=== PATIENT | female | born 1945 | race Caucasian/White ===

== ENCOUNTER → 2019-08-11 13:19 | Outpatient (BNVA) | payer MEDICARE, SELFPAY | PROVIDERS: Family Provider Nurse Practitioner Family; Referring Provider Nurse Practitioner Family; Visit Provider Specialist | DX: M25.561 Pain in right knee (principal) | CPT/HCPCS: 73560; 73565; 73630 ==

== ENCOUNTER 2019-12-16 08:40 | Outpatient (CLI) | payer MEDICARE, SELFPAY ==
--- NOTE | 2019-12-16 08:56 | XR_ITS ---
WS: [id number] Lumbar spine, 3 views, 12/16/2019 Clinical Data: Pain Comparison: None. Findings: No compression fractures or subluxation is seen. Degenerative disc narrowing is present at all levels from L1-L2 through L5-S1. There is a dextroscoliosis. Moderate osteoarthritic change is seen of the vertebral bodies L2-L5. The transverse processes and SI joints are normal. Is calcification in the wall of the abdominal aorta but no aneurysm is seen. XR/XR lumbar spine 2-3V* [id number] Impression: 1. Moderate degenerative change of the vertebral bodies L2-L5 with a dextroscol iosis. 2. Multiple levels of degenerative disc narrowing from L1-L2 through L5-S1.
== END 2019-12-16 08:41 | disposition home or self-care (01) ==
LOC: RAD 08:47
PROVIDERS: Visit Provider Nurse Practitioner
DX: M54.5 Low back pain (principal); M41.86 Other forms of scoliosis, lumbar region
CPT/HCPCS: 72100

== ENCOUNTER → 2020-01-12 11:22 | Outpatient (BNVA) | payer MEDICARE, SELFPAY | PROVIDERS: Family Provider Nurse Practitioner Family; Visit Provider Family Medicine | DX: I10 Essential (primary) hypertension (principal); E78.00 Pure hypercholesterolemia, unspecified | CPT/HCPCS: 80053; 80061; 85025 ==

== ENCOUNTER 2020-06-19 10:13 | Outpatient (CLI) | payer MEDICARE, SELFPAY ==
--- NOTE | 2020-06-19 10:30 | MM_ITS ---
WS: [id number] BILATERAL SCREENING DIGITAL MAMMOGRAM WITH CAD HISTORY: screening COMPARISON: 05/20/2017 and 05/16/2015 Bilateral CC and MLO views submitted. Computer aided detection analyzed. Breast composition: There are scattered areas of fibroglandular density. No suspicious masses, microc alcifications or architectural distortion. Benign round calcifications and arterial calcifications in each breast. MM/[place] [id number] IMPRESSION: BI-RADS: 2-Benign FOLLOW UP: 1 Year Follow-up
== END 2020-06-19 10:14 | disposition home or self-care (01) ==
LOC: RADSHAW 10:15
PROVIDERS: PCP Family Medicine; Visit Provider Family Medicine
DX: Z12.31 Encounter for screening mammogram for malignant neoplasm of breast (principal)
CPT/HCPCS: 77067

== ENCOUNTER → 2021-01-08 09:40 | Outpatient (BNVA) | payer MEDICARE, SELFPAY | PROVIDERS: PCP Family Medicine; Visit Provider Family Medicine | DX: I10 Essential (primary) hypertension (principal); E78.00 Pure hypercholesterolemia, unspecified | CPT/HCPCS: 80053; 80061; 85025 ==

== ENCOUNTER → 2021-07-02 09:48 | Outpatient (BNVA) | payer MEDICARE, SELFPAY | PROVIDERS: PCP Family Medicine; Visit Provider Family Medicine | DX: L57.0 Actinic keratosis (principal) | CPT/HCPCS: 88304; 88342 ==

== ENCOUNTER 2021-08-23 13:14 | Emergency (ER) | payer MEDICARE, SELFPAY ==
[2021-08-23 13:20] VITALS: BP 121/72; PULSE 61; RESP 16; TEMP 36.6; O2SAT 95; BMI 30.2
--- NOTE | 2021-08-23 13:35 | W.ED.FALL ---
HPI - Fall General: Chief Complaint: Fall Stated Complaint: fall Time Seen by Provider: 08/23/21 13:34 History of Present Illness: 76-year-old female comes in today for evaluation after a fall. At about 1130 today patient was coming out of the activity center and slipped in a puddle of water causing her to land on her buttocks. Since then patient has had abdominal discomfort and pelvic discomfort. Patient denies any loss of bowel or bladder control. Patient reports landing on her buttock and across her abdomen. Patient has a history of back pain, arthritis, hypertension, high cholesterol, and allergic rhinitis. Patient takes medications routinely for hypertension and high cholesterol. Patient also reports taking supplements. MD complaint: fall Onset (ago): hour(s) Fall from: standing Place fall occurred: street Loss of consciousness: None Prolonged down time: no Symptoms prior to fall: none Context: tripped/slipped Location of injury: back Associated symptoms-after fall: Denies chest pain Review of Systems General: Reports: 10 or more systems reviewed and unremarkable except in HPI and below Card: Denies: chest pain Resp: Denies: dyspnea GI: Denies: fecal incontinence : Denies: urinary incontinence Musc: Reports: back pain PFSH ED PFSH: Medical History Allergic rhinitis due to allergen History of depression Hypercholesteremia Hypertension Surgical History Status post total knee replacement, left Social History Smoking and tobacco status: former smoker Alcohol intake: never Physical Exam Const: COMMON NORMALS: alert HENMT: COMMON NORMALS: normocephalic HEAD & SCALP: normocephalic Neck/C-Spine: COMMON NORMALS: full ROM Resp: COMMON NORMALS: normal respiratory effort and clear to auscultation bilaterally AUSCULTATION: clear to auscultation bilaterally Cardio: COMMON NORMALS: regular rate, regular rhythm, S1 normal heart sound present and S2 normal heart sound present RATE: regular rate RHYTHM: regular rhythm HEART SOUNDS: S1 normal heart sound present and S2 normal heart sound present Back/Pelvis: LUMBAR SPINE/LOWER BACK: No lumbar spinal tenderness Extremity: COMMON NORMALS: normal to inspection Neuro: SENSORIUM/ORIENTATION: Yes alert Skin: COMMON NORMALS: no rashes or lesions noted GENERAL SKIN EXAM: no rashes or lesions noted Course Vital Signs: Vital signs: Vital Signs Temperature 97.9 F 08/23/21 13:20 Pulse Rate 61 08/23/21 13:20 Respiratory Rate 16 08/23/21 13:20 Blood Pressure 121/72 08/23/21 13:20 Pulse Oximetry 95 08/23/21 13:20 MDM - Fall Medical Decision Making 76-year-old female comes in today for evaluation after a slip and fall. On exam patient has some mild tenderness in the low back but no step-off or significant pain on palpation of the spine. Patient is able to stand and ambulate with minimal to no difficulty. Patient reports slipping and landing on her buttocks. No head injury was noted. Differential diagnosis includes vertebral spinal fracture, pelvic fracture, contusion, facet arthropathy, intervertebral disc disease. X-ray of the spine and pelvis indicated no acute fractures. Suspect patient's pain is more due to her intervertebral disc disease and compression on nerves. Reviewed recommendations for monitoring for fever and loss of bowel or bladder control. Patient reported no of these concerns at this time. Lab Data Radiology Impressions Lumbar Spine X-Ray 08/23/21 13:41 IMPRESSION: 1. Moderately advanced degenerative changes and dextroscoliosis. 2. No acute fracture or malalignment. Discharge Plan Discharge Patient Disposition: Home Clinical Impression: Fall from standing Qualifiers: Encounter type: initial encounter Qualified Code(s): W19.XXXA - Unspecified fall, initial encounter Abdominal pain Qualifiers: Abdominal location: generalized Qualified Code(s): R10.84 - Generalized abdominal pain Condition: Stable Prescriptions: No Action omega-3 fatty acids [Fish Oil Concentrate] 1,000 mg capsule 1,000 mg PO DAILY 0RF ascorbate calcium (vitamin C) 500 mg tablet 500 mg PO DAILY 0RF pravastatin 40 mg tablet 40 mg PO DAILY Qty: 90 1RF lidocaine (PF) 20 mg/mL (2 %) solution 20 mg SUBCUT ONCE Qty: 1 0RF cholecalciferol (vitamin D3) 10 mcg (400 unit) capsule 10 mcg PO DAILY 0RF cetirizine [Zyrtec] 10 mg tablet 10 mg PO DAILY PRN (Reason: allergy symptoms) Qty: 30 1RF losartan 50 mg tablet 50 mg PO DAILY Qty: 90 3RF lidocaine HCl 10 mg/mL (1 %) solution 10 mg SUBCUT ONCE Qty: 1 0RF cyclobenzaprine 10 mg tablet 10 mg PO BID PRN (Reason: muscle spasm) 20 Days Qty: 40 2RF metoprolol succinate 100 mg tablet extended release 24 hr 100 mg PO DAILY 90 Days Qty: 90 3RF omeprazole 20 mg capsule,delayed release(DR/EC) 20 mg PO DAILY Qty: 90 1RF Discharge Orders: Discharge ED (Routine); Ordered 08/23/21 Ordered By: Devonte Nava Referrals: Dewayne Jackson MD [Primary Care Provider] - Discharge Diet: Usual diet Discharge Activity: Increase activity as tolerated Patient Instructions: Abdominal Pain (ED) Activity Restrictions/Additional Instructions: Activity as tolerated. Gentle stretching and range of motion exercises. Use acetaminophen or ibuprofen for pain. Follow-up with primary care for further instruction. Return to ER for new concerns. Coding Level of Care Code ED Offset Proof Press Operator for John Fwd Exam Comprehensive
--- NOTE | 2021-08-23 13:41 | XR_ITS ---
WS: [id number] Exam: XR pelvis 1-2V* [id number] Date/Time of Exam: 08/23/2021 1:50 PM Reason For Exam: fall No acute pelvic fracture. Bony sclerosis of the right pubis that may represent Paget's disease of bon e. Osteoblastic metastasis also possible but felt to be less likely. Moderate DJD of the SI joints an d visualized lower lumbar spine. The hips are intact. XR/XR pelvis 1-2V* [id number] IMPRESSION: 1. Bony sclerosis of the right pubis which may indicate Paget's disease of bone . Osteoblastic metastatic bone disease possible but felt to be less likely. 2. No fracture. Moderate SI joint DJD.
--- NOTE | 2021-08-23 13:41 | XR_ITS ---
WS: [id number] Exam: XR lumbar spine 2-3V* [id number] Date/Time of Exam: 08/23/2021 1:50 PM Reason For Exam: fall No acute fracture or dislocation. Degenerative vacuum disks from L1 to L5. The L5-S1 disc space is re latively well maintained. Marked facet arthropathy at all levels. Dextroscoliosis. Osteopenia. Spondy losis. Aortoiliac atherosclerosis. Tiny calcifications superimpose both kidneys and may represent tam al stones but are nonspecific. XR/XR lumbar spine 2-3V* [id number] IMPRESSION: 1. Moderately advanced degenerative changes and dextroscoliosis. 2. No acute fracture or malalignment.
[2021-08-23] MEDS: acetaminophen 500 mg Tablet 1000 MG PO (14:20)
== END 2021-08-23 14:41 | disposition home or self-care (01) ==
PROVIDERS: Emergency Provider Nurse Practitioner Family; PCP Family Medicine
DX: R10.84 Generalized abdominal pain (principal); M54.50 Low back pain, unspecified; W01.0XXA Fall on same level from slipping, tripping and stumbling without subsequent striking against object, initial encounter
CPT/HCPCS: 72100; 72170; 99283

== ENCOUNTER → 2021-10-21 10:36 | Outpatient (BNVA) | payer MEDICARE, SELFPAY | PROVIDERS: PCP Family Medicine; Visit Provider Family Medicine | DX: E78.00 Pure hypercholesterolemia, unspecified (principal); I10 Essential (primary) hypertension; N39.3 Stress incontinence (female) (male) | CPT/HCPCS: 80053; 80061; 85025 ==

== ENCOUNTER → 2022-01-15 10:33 | Outpatient (BNVA) | payer MEDICARE, SELFPAY | PROVIDERS: PCP Family Medicine; Visit Provider Family Medicine | DX: Z00.00 Encounter for general adult medical examination without abnormal findings (principal); D50.9 Iron deficiency anemia, unspecified; N39.46 Mixed incontinence; Z23 Encounter for immunization | CPT/HCPCS: 85025 ==

== ENCOUNTER 2022-05-21 14:02 | Outpatient (CLI) | payer MEDICARE, SELFPAY ==
--- NOTE | 2022-05-21 14:30 | XR_ITS ---
WS: [id number] SCREENING DEXA SCAN [employer] CLINICAL INFORMATION: screening f/u from prior study 2018 COMPARISON: 2018 FINDINGS: The L1-L4 bone mineral density measures 1.608 g/cm2. This corresponds to a T score score of 3.6 and Z score of 5.0. Left femoral neck bone mineral density measures 0.959 g/cm2. This corresponds to a T score of -0.4 an d Z score of 1.2. Right femoral neck bone mineral density measures 0.897 g/cm2. This corresponds to a T score -0.9of an d Z score of 0.7. Mean femoral neck bone mineral density measures 0.928 g/cm2. This corresponds to a T score of -0.6 an d Z score of 1.0. XR/XR DEXA axial skeleton* [id number] IMPRESSION: Normal bone mineralization lumbar spine. Normal bone mineralization femoral nec ks. Patient's FRAX calculated 10 year probability for major osteoporotic fracture i s 20.0 % and osteoporotic hip fracture is 4.8%. Bone mineral density in the lumbar spine increased 1.6% since 2018. Bone mineral density femoral necks increased 1.2% since 2018
== END 2022-05-21 14:03 | disposition home or self-care (01) ==
PROVIDERS: PCP Family Medicine; Visit Provider Family Medicine
DX: Z13.820 Encounter for screening for osteoporosis (principal); I10 Essential (primary) hypertension; E03.9 Hypothyroidism, unspecified
CPT/HCPCS: 77080; 80053; 84443; 85025

== ENCOUNTER 2022-06-21 10:21 | Emergency (ER) | payer MEDICARE, SELFPAY ==
[2022-06-21 10:32] VITALS: BP 214/78; PULSE 64; RESP 16; TEMP 36.8; O2SAT 98
[2022-06-21 11:19] VITALS: BP 228/81; PULSE 66; RESP 16; O2SAT 97
--- NOTE | 2022-06-21 11:31 | W.ED.BACK ---
HPI - Back Pain/Injury General: Chief Complaint: Back Pain/Injury Stated Complaint: back pain Time Seen by Provider: 06/21/22 10:41 PFSH ED PFSH: Medical History Allergic rhinitis due to allergen History of depression Hypercholesteremia Hypertension Surgical History Status post total knee replacement, left Course Vital Signs: Vital signs: Vital Signs Temperature 98.2 F 06/21/22 10:32 Pulse Rate 66 06/21/22 11:19 Respiratory Rate 16 06/21/22 11:19 Blood Pressure 228/81 06/21/22 11:19 Pulse Oximetry 97 06/21/22 11:19 Oxygen Delivery Me thod 06/21/22 11:19 Discharge Plan Discharge Condition: Stable Prescriptions: No Action omega-3 fatty acids [Fish Oil Concentrate] 1,000 mg capsule 1,000 mg PO DAILY ascorbate calcium (vitamin C) 500 mg tablet 500 mg PO DAILY lidocaine (PF) 20 mg/mL (2 %) solution 20 mg SUBCUT ONCE Qty: 1 0RF cholecalciferol (vitamin D3) 10 mcg (400 unit) capsule 10 mcg PO DAILY cetirizine [Zyrtec] 10 mg tablet 10 mg PO DAILY PRN (Reason: allergy symptoms) Qty: 30 1RF lidocaine HCl 10 mg/mL (1 %) solution 10 mg SUBCUT ONCE Qty: 1 0RF conjugated estrogens 0.625 mg/gram cream 0.625 mg vaginal DAILY Qty: 30 2RF losartan 50 mg tablet 50 mg PO DAILY Qty: 90 3RF pravastatin 40 mg tablet 40 mg PO DAILY Qty: 90 1RF trospium 60 mg capsule,extended release 24hr 60 mg PO DAILY Qty: 42 0RF Rx Instructions: must be taken on empty stomach at least 1 hour before a meal/food with water only mirabegron 25 mg tablet extended release 24 hr 25 mg PO DAILY Qty: 42 0RF ferrous sulfate 325 mg (65 mg iron) tablet 325 mg PO DAILY Qty: 90 3RF metoprolol tartrate 50 mg tablet See Rx Instructions .ROUTE .COMPLEX Qty: 180 1RF Dose Instruction: TAKE 1 TABLET BY MOUTH TWICE DAILY NEEDED FOR BLOOD PRESSURE *SMALLER, SHORTER LASTING SO TAKE TWICE DAILY INSTEAD OF ONCE* Rx Instructions: TAKE 1 TABLET BY MOUTH TWICE DAILY NEEDED FOR BLOOD PRESSURE *SMALLER, SHORTER LASTING SO TAKE TWICE DAILY INSTEAD OF ONCE* omeprazole 20 mg capsule,delayed release(DR/EC) See Rx Instructions .ROUTE .COMPLEX Qty: 90 1RF Dose Instruction: take 1 capsule BY MOUTH EVERY DAY Rx Instructions: take 1 capsule BY MOUTH EVERY DAY cyclobenzaprine 10 mg tablet 10 mg PO BID PRN (Reason: muscle spasm) 20 Days Qty: 40 2RF sulindac 200 mg tablet 200 mg PO BID Qty: 60 1RF Referrals: Dewayne Jackson MD [Primary Care Provider] - Coding Level of Care Code ED 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
--- NOTE | 2022-06-21 11:48 | W.ED.BACK ---
HPI - Back Pain/Injury General: Chief Complaint: Back Pain/Injury Stated Complaint: back pain Time Seen by Provider: 06/21/22 10:41 Source: patient Mode of arrival: ambulatory (with use of cane-chronically uses this) Limitations: no limitations History of Present Illness: Patient is a 77-year-old female who presents to ED today with a complaint of lower back pain. She states she has been having back pain for quite a while . When asked to further elaborate on specific timeline she tells me at least a year or so . Patient states she has been seeing her primary care provider Dr. Jackson and states she has been told she has arthritis . She states she has been on anti-inflammatory medication that she does not feel helped her pain much. She does report today taking [id number] arthritis medication that did seem to help and at the time of my examination states she is not having much pain. Patient also has a complaint of feeling wobbly when she stands up. She states she will need to get my feet underneath me before starting to ambulate and states her legs sometimes give out. She reports previous falls over the past several months from this but states has not had a fall in over a month. Thinks maybe legs give out secondary to bad knees . She tells me this issue again has been going on for quite some time. Patient overall seems to be a fairly poor historian. When asked specifically what about her chronic complaints seemed to prompt her emergency visit she responds they ain't getting no better . MD elicited complaint: back pain Onset (ago): year(s) Timing: constant Similar Symptoms Previously: Yes Location: lumbar spine Radiation: none Exacerbating factors: none Relieving factors: none Associated symptoms: Deny abdominal pain, chills, dysuria, fatigue, fever(s), syncope or urinary urgency Treatments prior to arrival: NSAIDS Work related injury: No Review of Systems Const: Denies: fever(s), chills, body aches, fatigue or malaise Eyes: Denies: change in vision, blurry vision, photophobia, floaters or seeing flashes Card: Denies: chest pain, palpitations, irregular heart rhythm, edema, swelling of feet/ankles, syncope, pre-syncope, dyspnea on exertion or orthopnea Resp: Denies: dyspnea GI: Denies: abdominal pain : Denies: flank pain, difficulty voiding, dysuria or urinary urgency Musc: Reports: back pain; Denies: neck pain, extremity pain, extremity swelling, joint pain or joint swelling Skin/Breast: Denies: rash Neuro: Denies: headache(s), numbness in extremities, weakness in extremities, sensory changes, lack of coordination or frequent falls PFSH ED PFSH: Medical History Allergic rhinitis due to allergen History of depression Hypercholesteremia Hypertension Surgical History Status post total knee replacement, left Physical Exam Const: COMMON NORMALS: no acute distress, average body habitus, patient oriented x3, no limitations, healthy appearing, alert and well nourished ORIENTATION/CONSCIOUSNESS: Yes awake, Yes oriented to person, Yes oriented to place and Yes oriented to time Resp: COMMON NORMALS: normal respiratory effort and clear to auscultation bilaterally AUSCULTATION: clear to auscultation bilaterally Cardio: COMMON NORMALS: regular rate and regular rhythm RATE: regular rate RHYTHM: regular rhythm GI: COMMON NORMALS: Normal to inspection, nondistended, normoactive bowel sounds present, Soft to palpation and non-tender PALPATION: Yes Soft to palpation : COMMON NORMALS: Yes no CVA tenderness BLADDER/KIDNEY EXAM: Yes no CVA tenderness Back/Pelvis: COMMON NORMALS: no CVA tenderness THORACIC SPINE/UPPER BACK: No pain with ROM, No thoracic spinal tenderness, No paraspinal muscle tenderness and No paraspinal muscle spasm LUMBAR SPINE/LOWER BACK: Yes lumbar spinal tenderness, Yes paraspinal muscle tenderness, No paraspinal muscle spasm and Yes straight leg raise negative bilaterally PELVIS: Yes buttocks normal SACRUM: no tenderness COCCYX: no tenderness Extremity: COMMON NORMALS: normal to inspection, full ROM, no joint enlargement, no clubbing, cyanosis or edema, no calf tenderness and no pedal edema GENERAL: Yes normal exam except as noted Neuro: COMMON NORMALS: patient oriented x3, moves all extremities, no focal motor deficits, no sensory deficits noted and gait normal (pt has ambulated many times to the restroom using cane w/o difficulty) SENSORIUM/ORIENTATION: Yes alert, Yes oriented to person, Yes oriented to place and Yes oriented to time MOTOR EXAM: 5/5 motor strength present throughout Skin: COMMON NORMALS: no rashes or lesions noted GENERAL SKIN EXAM: no rashes or lesions noted Course Vital Signs: Vital signs: Vital Signs Temperature 98.2 F 06/21/22 10:32 Pulse Rate 64 06/21/22 13:42 Respiratory Rate 16 06/21/22 13:42 Blood Pressure 142/83 06/21/22 13:42 Pulse Oximetry 96 06/21/22 13:42 Oxygen Delivery Me thod 06/21/22 13:42 MDM - Back Pain/Injury Medical Decision Making Patient hypertensive upon arrival. She states she has taken her losartan today. She states she took herself off of her metoprolol thinking that it was the culprit for her feeling wobbly . Recommend she restart this medication and keep a detailed blood pressure log to discuss with Dr. Jackson upon follow-up. He was given IV Vasotec here with good response and last blood pressure check was 142/83. Patient's blood work is overall unremarkable. CT imaging showing advanced degenerative changes. She has no acute neurologic deficits on exam. She states she would like to follow-up with Dr. Jackson for further evaluation and treatment options. Patient is stable from a ED standpoint. Labs 06/21/22 12:16 06/21/22 12:16 Rad[address] Imp[address] Lum[address] CT 06/21/22 11:49 IMPRESSION: Advanced degenerative changes resulting in multilevel degenerative spinal stenosis most pronounced at L3-L4 and L4-L5 with there is severe narrowing of the spinal canal. Laboratory Results WBC 9.4 10^3/uL (4.0-10.0) 06/21/22 12:16 RBC 3.10 10^6/uL (4.1-5.3) L 06/21/22 12:16 Hgb 10.9 g/dL (11.5-15.3) L 06/21/22 12:16 Hct 33.2 % (37.0-47.0) L 06/21/22 12:16 MCV 107.1 fl (81-99) H 06/21/22 12:16 MCH 35.2 pg (28.0-34.0) H 06/21/22 12:16 MCHC 32.8 g/dL (30.0-36.0) 06/21/22 12:16 RDW 13.2 % (12.1-15.1) 06/21/22 12:16 Plt Count 340 10^3/cmm (130-400) 06/21/22 12:16 MPV 10.5 fL (7.4-10.4) H 06/21/22 12:16 Neut % (Auto) 58.7 % 06/21/22 12:16 Lymph % (Auto) 25.9 % 06/21/22 12:16 [place] % (Auto) 11.7 % 06/21/22 12:16 Eos % (Auto) 2.3 % 06/21/22 12:16 Baso % (Auto) 1.0 % 06/21/22 12:16 Neut # (Auto) 5.53 10^3/uL (1.8-7.7) 06/21/22 12:16 Lymph # (Auto) 2.4 10^3/uL (0.8-4.8) 06/21/22 12:16 [place] # (Auto) 1.1 10^3/uL (0.2-0.9) H 06/21/22 12:16 Eos # (Auto) 0.2 10^3/uL (0.0-0.8) 06/21/22 12:16 Baso # (Auto) 0.1 10^3/uL (0.0-0.1) 06/21/22 12:16 Nucleated RBC % (auto) 0.7 % 06/21/22 12:16 Nucleated RBCs # 0.1 /100WBC 06/21/22 12:16 Sodium 138 mmol/L (136-145) 06/21/22 12:16 Potassium 4.7 mmol/L (3.5-5.1) 06/21/22 12:16 Chloride 102 mmol/L (98-107) 06/21/22 12:16 Carbon Dioxide 26 mmol/L (22-29) 06/21/22 12:16 Anion Gap 14.7 (5-19) 06/21/22 12:16 BUN 16 mg/dL (8-23) 06/21/22 12:16 Creatinine 0.7 mg/dL (0.5-0.9) 06/21/22 12:16 GFR Calculation Not Reportable 06/21/22 12:16 Glucose 85 mg/dL (65-115) 06/21/22 12:16 Calculated Osmolality 286 mOsm/kg (285-295) 06/21/22 12:16 Calcium 9.4 mg/dL (8.5-10.5) 06/21/22 12:16 Total Bilirubin 0.6 mg/dL (0.15-1.2) 06/21/22 12:16 AST 26 U/L (0-32) 06/21/22 12:16 ALT 21 U/L (0-33) 06/21/22 12:16 Alkaline Phosphatase 84 U/L (35-105) 06/21/22 12:16 Total Protein 7.5 g/dL (6.6-8.7) 06/21/22 12:16 Albumin 4.6 g/dL (3.5-5.2) 06/21/22 12:16 Globulin 2.9 g/dL (1.3-4.6) 06/21/22 12:16 Urine Color Yellow (Yellow) 06/21/22 12:16 Urine Appearance Sl hazy (CLEAR) A 06/21/22 12:16 Urine pH 7 (5-7) 06/21/22 12:16 Ur Specific [place] 1.005 (1.005-1.030) 06/21/22 12:16 Urine Protein Neg (Negative) 06/21/22 12:16 Urine Glucose (UA) Norm (Normal) 06/21/22 12:16 Urine Ketones Negative (Negative) 06/21/22 12:16 Urine Blood Neg (Negative) 06/21/22 12:16 Urine Nitrate Negative (Negative) 06/21/22 12:16 Urine Bilirubin Neg (Negative) 06/21/22 12:16 Urine Urobilinogen Norm mg/dL (Negative) 06/21/22 12:16 Ur Leukocyte Esterase Negative (Negative) 06/21/22 12:16 Urine RBC None /hpf (0-2) 06/21/22 12:16 Urine WBC 0-4 /hpf (0-5) H 06/21/22 12:16 Ur Squamous Epith Cells 0-4 /hpf (0-5) H 06/21/22 12:16 Amorphous Sediment Not Reportable 06/21/22 12:16 Urine Bacteria Trace /hpf (NONE) 06/21/22 12:16 Discharge Plan Discharge Patient Disposition: Home Clinical Impression: Degenerative lumbar spinal stenosis Chronic back pain Qualifiers: Back pain location: low back pain Back pain laterality: midline Sciatica presence: without sciatica Qualified Code(s): M54.50 - Low back pain, unspecified Hypertension Qualifiers: Hypertension type: unspecified Qualified Code(s): I10 - Essential (primary) hypertension Condition: Stable Prescriptions: No Action omega-3 fatty acids [Fish Oil Concentrate] 1,000 mg capsule 1,000 mg PO DAILY ascorbate calcium (vitamin C) 500 mg tablet 500 mg PO DAILY lidocaine (PF) 20 mg/mL (2 %) solution 20 mg SUBCUT ONCE Qty: 1 0RF cholecalciferol (vitamin D3) 10 mcg (400 unit) capsule 10 mcg PO DAILY cetirizine [Zyrtec] 10 mg tablet 10 mg PO DAILY PRN (Reason: allergy symptoms) Qty: 30 1RF lidocaine HCl 10 mg/mL (1 %) solution 10 mg SUBCUT ONCE Qty: 1 0RF conjugated estrogens 0.625 mg/gram cream 0.625 mg vaginal DAILY Qty: 30 2RF losartan 50 mg tablet 50 mg PO DAILY Qty: 90 3RF pravastatin 40 mg tablet 40 mg PO DAILY Qty: 90 1RF trospium 60 mg capsule,extended release 24hr 60 mg PO DAILY Qty: 42 0RF Rx Instructions: must be taken on empty stomach at least 1 hour before a meal/food with water only mirabegron 25 mg tablet extended release 24 hr 25 mg PO DAILY Qty: 42 0RF ferrous sulfate 325 mg (65 mg iron) tablet 325 mg PO DAILY Qty: 90 3RF metoprolol tartrate 50 mg tablet See Rx Instructions .ROUTE .COMPLEX Qty: 180 1RF Dose Instruction: TAKE 1 TABLET BY MOUTH TWICE DAILY NEEDED FOR BLOOD PRESSURE *SMALLER, SHORTER LASTING SO TAKE TWICE DAILY INSTEAD OF ONCE* Rx Instructions: TAKE 1 TABLET BY MOUTH TWICE DAILY NEEDED FOR BLOOD PRESSURE *SMALLER, SHORTER LASTING SO TAKE TWICE DAILY INSTEAD OF ONCE* omeprazole 20 mg capsule,delayed release(DR/EC) See Rx Instructions .ROUTE .COMPLEX Qty: 90 1RF Dose Instruction: take 1 capsule BY MOUTH EVERY DAY Rx Instructions: take 1 capsule BY MOUTH EVERY DAY cyclobenzaprine 10 mg tablet 10 mg PO BID PRN (Reason: muscle spasm) 20 Days Qty: 40 2RF sulindac 200 mg tablet 200 mg PO BID Qty: 60 1RF Discharge Orders: Discharge ED (Routine); Ordered 04/08/23 Ordered By: Estelita Neri Referrals: Dewayne Jackson MD [Primary Care Provider] - Coding Level of Care Code ED Extruding Machine Operator for John Mora
--- NOTE | 2022-06-21 11:49 | CTR_ITS ---
PROCEDURE INFORMATION: Exam: CT Lumbar Spine Without Contrast Exam date and time: 06/21/2022 12:25 PM Age: 77 years old Clinical indication: Low back pain; Additional info: Back pain, leg weakness TECHNIQUE: Imaging protocol: Computed tomography of the lumbar spine without contrast. Radiation optimization: All CT scans at this facility use at least one of these dose optimization techniques: automated exposure control; mA and/or kV adjustment per patient size (includes targeted exams where dose is matched to clinical indication); or iterative reconstruction. REPORTING DATA: Count of CT and Cardiac NM exams in prior 12 months: This patient has received 0 known CTs and 0 known cardiac nuclear medicine studies in the 12 months prior to the current study. COMPARISON: CR XR lumbar spine 2-3V* [id number] 08/23/2021 2:04 PM RADIATION DOSE METRICS: Total DLP (mGy-cm): 902.31 FINDINGS: Bones/joints: There is mild scoliosis of the lumbar spine convex to the patient's left with moderate-advanced asymmetric degenerative disc/endplate changes with accompanying osteophytes more pronounced left of midline in the upper lumbar spine and right of midline in the lower lumbar spine. There are no compression fractures or spondylolisthesis. L1-L2: Degenerative disc space narrowing with endplate osteophytic lipping and annular disc bulge flattening the anterior thecal sac, imparting mild-moderate stenosis of the central canal L2-L3: Degenerative disc space narrowing with diffuse annular disc bulge with mild plate endplate osteophytic lipping and facet arthrosis flattening the anterior thecal sac, imparting moderate stenosis of the central canal and mild foraminal narrowing bilaterally. L3-L4: Diffuse annular disc bulge with facet arthrosis constricting the thecal sac, imparting severe stenosis of the central canal and mild foraminal narrowing bilaterally. L4-L5: Degenerative disc space narrowing with asymmetric right-sided annular disc bulge with endplate osteophytic lipping and facet arthrosis constricting the thecal sac imparting severe stenosis of the central canal and moderate narrowing of the right neural foramina. L5-S1: Diffuse annular disc bulge with accompanying facet arthrosis flattening the anterior thecal sac, imparting moderate stenosis of the central canal and neural foramina bilaterally. Vasculature: Abdominal aorta and iliac vessels are diffusely calcified. No prevertebral paraspinal soft tissue swelling. Soft tissues: See Vasculature finding. CT/CT lumbar spine wo con* [id number] IMPRESSION: Advanced degenerative changes resulting in multilevel degenerative spinal stenosis most pronounced at L3-L4 and L4-L5 with there is severe narrowing of the spinal canal.
[2022-06-21 12:36] LABS: Basophils # 0.1 10^3/uL (0.0-0.1); Eosinophils # 0.2 10^3/uL (0.0-0.8); Eosinophils % 2.3 %; Hematocrit 33.2 % (37.0-47.0); Hemoglobin 10.9 g/dL (11.5-15.3); Lymphocytes # 2.4 10^3/uL (0.8-4.8); Lymphocytes % 25.9 %; Mean Corpuscular HGB Conc 32.8 g/dL (30.0-36.0); Mean Corpuscular Hemoglobin 35.2 pg (28.0-34.0); Mean Corpuscular Volume 107.1 fl (81-99); Mean Platelet Volume 10.5 fL (7.4-10.4); Monocytes # 1.1 10^3/uL (0.2-0.9); Monocytes % 11.7 %; Neutrophils # 5.53 10^3/uL (1.8-7.7); Neutrophils % 58.7 %; Nucleated Red Blood Cells # 0.1 /100WBC; Nucleated Red Blood Cells % 0.7 %; Platelet Count 340 10^3/cmm (130-400); Red Cell Distribution Width 13.2 % (12.1-15.1); White Blood Count 9.4 10^3/uL (4.0-10.0)
[2022-06-21] MEDS: enalaprilat 1.25 mg/mL Inj IVP (12:37)
[2022-06-21 12:39] VITALS: BP 209/84; PULSE 65; RESP 16; O2SAT 98
[2022-06-21 12:43] LABS: Add Urine Microscopic? YES; Bilirubin Urine Neg (Negative); Blood Urine Neg (Negative); Glucose Urine UA Norm (Normal); Ketones Urine Negative (Negative); Leukocyte Esterase Urine Negative (Negative); Nitrate Urine Negative (Negative); Protein Urine Neg (Negative); Specific Gravity, Urine 1.005 (1.005-1.030); Urine Appearance SL Hazy (CLEAR); Urine Color Yellow (Yellow); Urobilinogen Urine Norm (Negative); pH Urine 7 (5-7)
[2022-06-21 12:44] LABS: WBC Urine 0-4 /hpf (0-5)
[2022-06-21 12:45] LABS: Add Urine Culture? No; Bacteria Urine TRACE /hpf; Squamous Epithelial Cell Urine 0-4 /hpf (0-5)
[2022-06-21 13:01] LABS: Alanine Aminotransferase 21 U/L (0-33); Albumin Level 4.6 g/dL (3.5-5.2); Alkaline Phosphatase 84 U/L (35-105); Aspartate Amino Transferase 26 U/L (0-32); Blood Urea Nitrogen 16 mg/dL (8-23); Calcium 9.4 mg/dL (8.5-10.5); Carbon Dioxide 26 mmol/L (22-29); Chloride 102 mmol/L (98-107); Globulin 2.9 g/dL (1.3-4.6); Glucose 85 mg/dL (65-115); Osmolality Calculated 286 mOsm/kg (285-295); Sodium 138 mmol/L (136-145); Total Bilirubin 0.6 mg/dL (0.15-1.2); Total Protein 7.5 g/dL (6.6-8.7)
[2022-06-21 13:06] LABS: Anion Gap 14.7 (5-19); Potassium 4.7 mmol/L (3.5-5.1)
[2022-06-21 13:42] VITALS: BP 142/83; PULSE 64; RESP 16; O2SAT 96
== END 2022-06-21 14:14 | disposition home or self-care (01) ==
PROVIDERS: Emergency Provider Physician Assistant; PCP Family Medicine
DX: M48.061 Spinal stenosis, lumbar region without neurogenic claudication (principal); G89.29 Other chronic pain
CPT/HCPCS: 72131; 80053; 81001; 85025; 96374; 99285; J3490

== ENCOUNTER 2022-06-22 13:32 | Observation (INO) | payer MEDICARE, SELFPAY ==
[2022-06-22] VITALS (9 sets, daily range): BP systolic 179–211; BP diastolic 71–96; PULSE 62–73; RESP 15–16; TEMP 36.6–37.1; O2SAT 94–98; BMI 31.0
--- NOTE | 2022-06-22 13:57 | ED_ITS ---
Documented by User: Chris Willoughby MD 07/03/22 03:23 HPI - General Adult General: Chief complaint: General Medical Stated complaint: high bp Time Seen by Provider: 06/22/22 13:57 History of Present Illness: Ms. Fabian is a 77-year-old lady with degenerative disc disease, hypertension, hyperlipidemia presenting to the emergency department for high blood pressure and generalized malaise. She reports feeling wobbly with gait over the past few days. Denies associated headache or other focal neurologic symptoms. She reports blood pressure has been poorly controlled and when she checked it at home it was significantly elevated. She reports that she was switched from enalapril to losartan however switched herself back to enalapril because she was concerned about the milligram difference with her gait. Intensity symptoms is moderate. Course has worsened. No other specific changes in health, exacerbating, or alleviating factors identified. Onset (ago): day(s) Severity: moderate Relieving factors: none Exacerbating factors: other Associated symptoms: Reports other Review of Systems General: Reports: 10 or more systems reviewed and unremarkable except in HPI and below PFSH ED PFSH: Medical History Allergic rhinitis due to allergen History of depression Hypercholesteremia Hypertension Osteoarthritis Surgical History History of arthroscopy of left knee History of foot surgery right calcaneus fracture History of unilateral oophorectomy Status post total knee replacement, left Family History Other Hyperlipidemia Hypertension Social History Smoking and tobacco status: former smoker Alcohol intake: never Physical Exam Const: COMMON NORMALS: patient oriented x3 and alert GENERAL APPEARANCE: cooperative and well developed HENMT: COMMON NORMALS: normocephalic and atraumatic HEAD & SCALP: normo cephalic and atraumatic Eye: COMMON NORMALS: conjunctivae normal CONJUNCTIVA: Yes conjunctivae normal SCLERA: sclerae normal Neck/C-Spine: COMMON NORMALS: supple GENERAL: Yes trachea midline Resp: COMMON NORMALS: clear to auscultation bilaterally EFFORT & INSPECTION: Yes able to speak in complete sentences AUSCULTATION: clear to auscultation bilaterally Cardio: COMMON NORMALS: regular rate and regular rhythm RATE: regular rate RHYTHM: regular rhythm GI: COMMON NORMALS: Soft to palpation PALPATION: Yes Soft to palpation and No Tenderness to palpation present (GI) Extremity: GENERAL: Yes normal exam except as noted and No edema Neuro: COMMON NORMALS: patient oriented x3, CN's II-XII intact bilaterally, moves all extremities, no focal motor deficits and no sensory deficits noted SENSORIUM/ORIENTATION: Yes alert and No Orientation impaired Psych: COMMON NORMALS: mental status grossly normal and Normal thought process present THOUGHT PROCESS: Normal thought process present Course Vital Signs: Vital signs: Vital Signs Temperature 98.0 F 06/23/22 14:18 Pulse Rate 68 06/23/22 14:18 Respiratory Rate 15 06/23/22 14:18 Blood Pressure 166/71 06/23/22 14:18 Pulse Oximetry 94 06/23/22 14:18 Oxygen Delivery Me thod Room Air 06/23/22 11:27 MDM - General Adult Medical Decision Making 77-year-old lady presenting due to uncontrolled blood pressure with associated wobbly feeling . No focal neurologic deficits on exam. Patient is nontoxic. EKG demonstrates sinus rhythm with normal axis and intervals, there are nonspeci fic ST segment abnormalities, no STEMI. Labs with no leukocytosis, normal hemoglobin. Metabolic panel with mild hyponatremia. Negative range 2-hour delta troponin. BNP elevated. No UTI. Patient has negative head CT. Patient treated with medications for blood pressure with mild improvement in blood pressure however no significant change in symptoms. Discussed with hospitalist service who will come evaluate the patient. Handed off pending possible service recommendations. Patient presents here with generalized weakness along with hypertension Dr. Guerra spoke to Dr. Wynn who came and saw the patient will admit for observation at this time Medical Records I reviewed the patient's medical records. Lab Data I reviewed the patient's lab results. 06/22/22 14:15 06/23/22 04:[address] 06/22/22 14:19 IMPRESSION: 1. No acute intracranial abnormality. 2. Mild sinus disease. Chest X-Ray 06/22/22 21:37 IMPRESSION: 1. Accentuated cardiac silhouette size and vascularity. See discussion above. 2. No obvious acute consolidation. Suboptimal lung base assessment. Followup including lateral view may be obtained if clinically indicated. Laboratory Results WBC 7.6 10^3/uL (4.0-10.0) 06/22/22 14:15 RBC 3.09 10^6/uL (4.1-5.3) L 06/22/22 14:15 Hgb 10.8 g/dL (11.5-15.3) L 06/22/22 14:15 Hct 32.8 % (37.0-47.0) L 06/22/22 14:15 MCV 106.1 fl (81-99) H 06/22/22 14:15 MCH 35.0 pg (28.0-34.0) H 06/22/22 14:15 MCHC 32.9 g/dL (30.0-36.0) 06/22/22 14:15 RDW 13.1 % (12.1-15.1) 06/22/22 14:15 Plt Count 329 10^3/cmm (130-400) 06/22/22 14:15 MPV 9.9 fL (7.4-10.4) 06/22/22 14:15 Neut % (Auto) 56.3 % 06/22/22 14:15 Lymph % (Auto) 28.7 % 06/22/22 14:15 [place] % (Auto) 11.1 % 06/22/22 14:15 Eos % (Auto) 2.4 % 06/22/22 14:15 Baso % (Auto) 1.1 % 06/22/22 14:15 Neut # (Auto) 4.29 10^3/uL (1.8-7.7) 06/22/22 14:15 Lymph # (Auto) 2.2 10^3/uL (0.8-4.8) 06/22/22 14:15 [place] # (Auto) 0.8 10^3/uL (0.2-0.9) 06/22/22 14:15 Eos # (Auto) 0.2 10^3/uL (0.0-0.8) 06/22/22 14:15 Baso # (Auto) 0.1 10^3/uL (0.0-0.1) 06/22/22 14:15 Nucleated RBC % (auto) 1.2 % 06/22/22 14:15 Nucleated RBCs # 0.1 /100WBC 06/22/22 14:15 Sodium 133 mmol/L (136-145) L 06/22/22 14:47 Potassium 4.7 mmol/L (3.5-5.1) 06/22/22 14:47 Chloride 99 mmol/L (98-107) 06/22/22 14:47 Carbon Dioxide 23 mmol/L (22-29) 06/22/22 14:47 Anion Gap 15.7 (5-19) 06/22/22 14:47 BUN 15 mg/dL (8-23) 06/22/22 14:47 Creatinine 0.7 mg/dL (0.5-0.9) 06/22/22 14:47 GFR Calculation Not Reportable 06/22/22 14:47 Glucose 79 mg/dL (65-115) 06/22/22 14:47 Calculated Osmolality 276 mOsm/kg (285-295) L 06/22/22 14:47 Calcium 9.0 mg/dL (8.5-10.5) 06/22/22 14:47 Total Bilirubin 0.5 mg/dL (0.15-1.2) 06/22/22 14:47 AST 30 U/L (0-32) 06/22/22 14:47 ALT 19 U/L (0-33) 06/22/22 14:47 Alkaline Phosphatase 72 U/L (35-105) 06/22/22 14:47 Troponin T Baseline 33 ng/L (0-10) H 06/22/22 14:47 Troponin T 120 Minute 31.40 ng/L (0-10) H 06/22/22 16:43 Delta Troponin T -1.60 ABS# (0-10) L 06/22/22 16:43 C-Reactive Protein 7.5 mg/L (0.0-4.9) H 06/22/22 14:47 NT-Pro-B Natriuret Pep 1253 pg/mL (0-450) H 06/22/22 14:47 Total Protein 7.2 g/dL (6.6-8.7) 06/22/22 14:47 Albumin 4.0 g/dL (3.5-5.2) 06/22/22 14:47 Globulin 3.2 g/dL (1.3-4.6) 06/22/22 14:47 Procalcitonin 0.03 ng/mL (0-0.5) 06/22/22 14:47 TSH 1.48 uIU/mL (0.27-4.20) 06/22/22 14:47 Urine Color Yellow (Yellow) 06/22/22 15:43 Urine Appearance Clear (CLEAR) 06/22/22 15:43 Urine pH 7 (5-7) 06/22/22 15:43 Ur Specific [place] 1.005 (1.005-1.030) 06/22/22 15:43 Urine Protein Neg (Negative) 06/22/22 15:43 Urine Glucose (UA) Norm (Normal) 06/22/22 15:43 Urine Ketones Negative (Negative) 06/22/22 15:43 Urine Blood Neg (Negative) 06/22/22 15:43 Urine Nitrate Negative (Negative) 06/22/22 15:43 Urine Bilirubin Neg (Negative) 06/22/22 15:43 Urine Urobilinogen Norm mg/dL (Negative) 06/22/22 15:43 Ur Leukocyte Esterase Negative (Negative) 06/22/22 15:43 Discharge Plan Discharge Patient Disposition: Placed in Observation Admit Provider: Marlee Mota Clinical Impression: Weakness, Hypertension Discharge Diet: Cardiac Coding Level of Care Code ED Assistant Import Manager for Chg Fwd Documented by User: Rob Kaur MD 06/22/22 20:41 HPI - General Adult General: Chief complaint: General Medical Stated complaint: high bp Time Seen by Provider: 06/22/22 13:57 PFSH ED PFSH: Medical History Allergic rhinitis due to allergen History of depression Hypercholesteremia Hypertension Osteoarthritis Surgical History History of arthroscopy of left knee History of foot surgery right calcaneus fracture History of unilateral oophorectomy Status post total knee replacement, left Family History Other Hyperlipidemia Hypertension Social History Smoking and tobacco status: former smoker Alcohol intake: never Course Vital Signs: Vital signs: Vital Signs Temperature 98.0 F 06/23/22 14:18 Pulse Rate 68 06/23/22 14:18 Respiratory Rate 15 06/23/22 14:18 Blood Pressure 166/71 06/23/22 14:18 Pulse Oximetry 94 06/23/22 14:18 Oxygen Delivery Me thod Room Air 06/23/22 11:27 MDM - General Adult Medical Decision Making Patient presents here with generalized weakness along with hypertension Dr. Guerra spoke to Dr. Wynn who came and saw the patient will admit for observation at this time Lab Data 06/22/22 14:15 06/23/22 04:[address] 06/22/22 14:19 IMPRESSION: 1. No acute intracranial abnormality. 2. Mild sinus disease. Chest X-Ray 06/22/22 21:37 IMPRESSION: 1. Accentuated cardiac silhouette size and vascularity. See discussion above. 2. No obvious acute consolidation. Suboptimal lung base assessment. Followup including lateral view may be obtained if clinically indicated. Laboratory Results WBC 7.6 10^3/uL (4.0-10.0) 06/22/22 14:15 RBC 3.09 10^6/uL (4.1-5.3) L 06/22/22 14:15 Hgb 10.8 g/dL (11.5-15.3) L 06/22/22 14:15 Hct 32.8 % (37.0-47.0) L 06/22/22 14:15 MCV 106.1 fl (81-99) H 06/22/22 14:15 MCH 35.0 pg (28.0-34.0) H 06/22/22 14:15 MCHC 32.9 g/dL (30.0-36.0) 06/22/22 14:15 RDW 13.1 % (12.1-15.1) 06/22/22 14:15 Plt Count 329 10^3/cmm (130-400) 06/22/22 14:15 MPV 9.9 fL (7.4-10.4) 06/22/22 14:15 Neut % (Auto) 56.3 % 06/22/22 14:15 Lymph % (Auto) 28.7 % 06/22/22 14:15 [place] % (Auto) 11.1 % 06/22/22 14:15 Eos % (Auto) 2.4 % 06/22/22 14:15 Baso % (Auto) 1.1 % 06/22/22 14:15 Neut # (Auto) 4.29 10^3/uL (1.8-7.7) 06/22/22 14:15 Lymph # (Auto) 2.2 10^3/uL (0.8-4.8) 06/22/22 14:15 [place] # (Auto) 0.8 10^3/uL (0.2-0.9) 06/22/22 14:15 Eos # (Auto) 0.2 10^3/uL (0.0-0.8) 06/22/22 14:15 Baso # (Auto) 0.1 10^3/uL (0.0-0.1) 06/22/22 14:15 Nucleated RBC % (auto) 1.2 % 06/22/22 14:15 Nucleated RBCs # 0.1 /100WBC 06/22/22 14:15 Sodium 133 mmol/L (136-145) L 06/22/22 14:47 Potassium 4.7 mmol/L (3.5-5.1) 06/22/22 14:47 Chloride 99 mmol/L (98-107) 06/22/22 14:47 Carbon Dioxide 23 mmol/L (22-29) 06/22/22 14:47 Anion Gap 15.7 (5-19) 06/22/22 14:47 BUN 15 mg/dL (8-23) 06/22/22 14:47 Creatinine 0.7 mg/dL (0.5-0.9) 06/22/22 14:47 GFR Calculation Not Reportable 06/22/22 14:47 Glucose 79 mg/dL (65-115) 06/22/22 14:47 Calculated Osmolality 276 mOsm/kg (285-295) L 06/22/22 14:47 Calcium 9.0 mg/dL (8.5-10.5) 06/22/22 14:47 Total Bilirubin 0.5 mg/dL (0.15-1.2) 06/22/22 14:47 AST 30 U/L (0-32) 06/22/22 14:47 ALT 19 U/L (0-33) 06/22/22 14:47 Alkaline Phosphatase 72 U/L (35-105) 06/22/22 14:47 Troponin T Baseline 33 ng/L (0-10) H 06/22/22 14:47 Troponin T 120 Minute 31.40 ng/L (0-10) H 06/22/22 16:43 Delta Troponin T -1.60 ABS# (0-10) L 06/22/22 16:43 C-Reactive Protein 7.5 mg/L (0.0-4.9) H 06/22/22 14:47 NT-Pro-B Natriuret Pep 1253 pg/mL (0-450) H 06/22/22 14:47 Total Protein 7.2 g/dL (6.6-8.7) 06/22/22 14:47 Albumin 4.0 g/dL (3.5-5.2) 06/22/22 14:47 Globulin 3.2 g/dL (1.3-4.6) 06/22/22 14:47 Procalcitonin 0.03 ng/mL (0-0.5) 06/22/22 14:47 TSH 1.48 uIU/mL (0.27-4.20) 06/22/22 14:47 Urine Color Yellow (Yellow) 06/22/22 15:43 Urine Appearance Clear (CLEAR) 06/22/22 15:43 Urine pH 7 (5-7) 06/22/22 15:43 Ur Specific [place] 1.005 (1.005-1.030) 06/22/22 15:43 Urine Protein Neg (Negative) 06/22/22 15:43 Urine Glucose (UA) Norm (Normal) 06/22/22 15:43 Urine Ketones Negative (Negative) 06/22/22 15:43 Urine Blood Neg (Negative) 06/22/22 15:43 Urine Nitrate Negative (Negative) 06/22/22 15:43 Urine Bilirubin Neg (Negative) 06/22/22 15:43 Urine Urobilinogen Norm mg/dL (Negative) 06/22/22 15:43 Ur Leukocyte Esterase Negative (Negative) 06/22/22 15:43 Discharge Plan Discharge Patient Disposition: Placed in Observation Admit Provider: Marlee Mota Clinical Impression: Weakness, Hypertension Discharge Diet: Cardiac Coding Level of Care Code ED Assistant Import Manager for John Mora
--- NOTE | 2022-06-22 14:19 | CTR_ITS ---
PROCEDURE INFORMATION: Exam: CT Head Without Contrast Exam date and time: 06/22/2022 2:32 PM Age: 77 years old Clinical indication: Walking, difficulty; Additional info: Unsteady gait TECHNIQUE: Imaging protocol: Computed tomography of the head without contrast. Radiation optimization: All CT scans at this facility use at least one of these dose optimization techniques: automated exposure control; mA and/or kV adjustment per patient size (includes targeted exams where dose is matched to clinical indication); or iterative reconstruction. REPORTING DATA: Count of CT and Cardiac NM exams in prior 12 months: This patient has received [address] and 0 known cardiac nuclear medicine studies in the 12 months prior to the current study. COMPARISON: No relevant prior studies available. RADIATION DOSE METRICS: Total DLP (mGy-cm): 1005.28 FINDINGS: Brain: Normal. No hemorrhage. No mass effect or midline shift. Cortical sulci and white matter are unremarkable for age. Cerebral ventricles: Unremarkable for age. Paranasal sinuses: 2 cm polyp retention cyst left ethmoid sinus. Fluid level within the sphenoid sinus. Mastoid air cells: Visualized mastoid air cells are well aerated. Bones/joints: Unremarkable. No acute fracture. Soft tissues: Unremarkable. CT/CT head wo con* [id number] IMPRESSION: 1. No acute intracranial abnormality. 2. Mild sinus disease.
[2022-06-22] MEDS: diazePAM 2 mg Tablet PO (14:24)
[2022-06-22] MEDS: enalaprilat 1.25 mg/mL Inj 0.625 MG IVP (14:24)
[2022-06-22 14:27] LABS: Basophils # 0.1 10^3/uL (0.0-0.1); Basophils % 1.1 %; Eosinophils # 0.2 10^3/uL (0.0-0.8); Eosinophils % 2.4 %; Hematocrit 32.8 % (37.0-47.0); Hemoglobin 10.8 g/dL (11.5-15.3); Lymphocytes # 2.2 10^3/uL (0.8-4.8); Lymphocytes % 28.7 %; Mean Corpuscular HGB Conc 32.9 g/dL (30.0-36.0); Mean Corpuscular Volume 106.1 fl (81-99); Mean Platelet Volume 9.9 fL (7.4-10.4); Monocytes # 0.8 10^3/uL (0.2-0.9); Monocytes % 11.1 %; Neutrophils # 4.29 10^3/uL (1.8-7.7); Neutrophils % 56.3 %; Nucleated Red Blood Cells # 0.1 /100WBC; Nucleated Red Blood Cells % 1.2 %; Platelet Count 329 10^3/cmm (130-400); Red Blood Count 3.09 10^6/uL (4.1-5.3); Red Cell Distribution Width 13.1 % (12.1-15.1); White Blood Count 7.6 10^3/uL (4.0-10.0)
--- NOTE | 2022-06-22 14:41 | PC.NURSE ---
pt on bedside monitor tech
--- NOTE | 2022-06-22 14:58 | ECG_ITS ---
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 Measurements Intervals [place] Rate: 61 P: -16 GA: 136 QRS: 66 QRSD: 91 T: 120 QT: 397 QTc: 401 Interpretive Statements SINUS RHYTHM NONSPECIFIC ST & T-WAVE ABNORMALITY Compared to ECG 06/19/2017 18:15:09 Ectopic atrial rhythm no longer present T-wave abnormality still present Electronically Signed On 06-22-2022 22:10:06 CDT by Ariana Asif M.D. [id number]
[2022-06-22 15:25] LABS: Troponin(5th) Baseline 33 ng/L (0-10)
[2022-06-22 15:31] LABS: NT Pro B Type Natriuretic Pept 1253 pg/mL (0-450); Procalcitonin 0.03 ng/mL (0-0.5); Thyroid Stimulating Hormone 1.48 uIU/mL (0.27-4.20)
[2022-06-22] MEDS: hyDRALAzine 20 mg/mL INJ 1 mL 10 MG IVP (15:41)
[2022-06-22 15:42] LABS: Alanine Aminotransferase 19 U/L (0-33); Alkaline Phosphatase 72 U/L (35-105); Blood Urea Nitrogen 15 mg/dL (8-23); C Reactive Protein 7.5 mg/L (0.0-4.9); Carbon Dioxide 23 mmol/L (22-29); Chloride 99 mmol/L (98-107); Globulin 3.2 g/dL (1.3-4.6); Glucose 79 mg/dL (65-115); Osmolality Calculated 276 mOsm/kg (285-295); Sodium 133 mmol/L (136-145); Total Bilirubin 0.5 mg/dL (0.15-1.2); Total Protein 7.2 g/dL (6.6-8.7)
[2022-06-22 15:45] LABS: Anion Gap 15.7 (5-19); Aspartate Amino Transferase 30 U/L (0-32); Potassium 4.7 mmol/L (3.5-5.1)
--- NOTE | 2022-06-22 16:12 | ECG_ITS ---
[facility] Test Date: 2022-06-22 Pat Name: Millicent Fabian Department: Room: Gender: Female Acetylene Gas Compressor: : 1945 Requested By: Chris Willoughby Order Number: [id number] Rigoberto MD: Ariana Asif M.D. Measurements Intervals [place] Rate: 64 P: -18 DE: 132 QRS: 53 QRSD: 77 T: 156 QT: 384 QTc: 397 Interpretive Statements SINUS RHYTHM NONSPECIFIC T-WAVE ABNORMALITY Compared to ECG 06/22/2022 14:58:55 No significant changes Electronically Signed On 06-22-2022 22:21:02 CDT by Ariana Asif M.D. [id number]
[2022-06-22 16:20] LABS: Add Urine Microscopic? NO; Charge for UA Resulting for Rev
[2022-06-22 16:25] LABS: Bilirubin Urine Neg (Negative); Blood Urine Neg (Negative); Glucose Urine UA Norm (Normal); Ketones Urine Negative (Negative); Leukocyte Esterase Urine Negative (Negative); Nitrate Urine Negative (Negative); Protein Urine Neg (Negative); Specific Gravity, Urine 1.005 (1.005-1.030); Urine Appearance Clear (CLEAR); Urine Color Yellow (Yellow); Urobilinogen Urine Norm (Negative); pH Urine 7 (5-7)
[2022-06-22] MEDS: hyDRALAzine 25 mg Tablet PO (17:10)
[2022-06-22] MEDS: fentaNYL 50 mcg/mL INJ 2mL IVP (17:22)
--- NOTE | 2022-06-22 18:12 | PC.NURSE ---
Verbal order from Dr Willoughby to hold nicardipine drip until pt is seen by Dr Wynn
--- NOTE | 2022-06-22 19:30 | PC.NURSE ---
Pt resting in bed, states pain in the back of her neck is 8/10, radiating into left shoulder. Pt still waiting for Dr Wynn to come and see her. Female visitor at bedside
[2022-06-22] MEDS: morphine 4 mg/mL SDV 1 mL IVP (19:50)
--- NOTE | 2022-06-22 19:51 | PC.NURSE ---
Dr Wynn at bedside
--- NOTE | 2022-06-22 20:46 | PM.HP ---
Providers/Chief Complaint Admitting Physician: Marlee Mota MD Primary Care Provider: Dewayne Jackson MD Chief Complaint: high bp History of Present Illness Millicent Fabian is a 77 year old female who presented to the emergency room with chief complaint of elevated blood pressure and back pain. She has a known history of hypertension. She also has had some chronic back pain issues. At 1 point in time her blood pressure has been managed with lisinopril 20 mg daily and metoprolol which is presently dosed at 50 mg twice a day. She had a cough and was changed to losartan instead of lisinopril sometime last summer. She reports that she thought the losartan was causing her to not feel well and she quit taking this and went back to taking lisinopril. Getting an exact timeline of when these medication changes have occurred has been difficult to sort out. She also mentioned thinking that the metoprolol may have been causing symptoms and held it at some point also. I have reviewed previous records and seen systolic pressures 160s to 170s before, generally at times that she was having more issues with pain around the time of hip surgery or after a fall. She does describe falling periodically and has had a recent fall. She describes being unsteady on her feet at times. It sounds like she has thought the blood pressures medications may be causing this unsteadiness. She has had times when both of her legs have given out and when she has some numbness in the fourth and fifth digits of both hands but no other described sensory or motor deficits noted beyond worsening bladder incontinence since a fall a few months ago. With the recent fall, she has experienced increased back pain in the middle of the back central part, above what she normally has. She was seen in the emergency room 06/21 because of the back pain. She was found to have blood pressures as high as 228/81. She received a dose of enalapril and hydralazine with improvement in her blood pressures to 142/83. CT of the lumbar spine was done revealing advanced degenerative changes with multilevel degenerative spinal stenosis most pronounced at L3-L4 and L4-L5 with severe narrowing of the spinal canal. No acute neurological deficits were noted and recommendation was to follow up with Dr Jackson outpatient. She felt better at first, but today when checking her blood pressures, she again noted them to be 190s-200s systolic. With the hypertension and continued pain in her back, she came again to the emergency room for evaluation. She received diazepam, enalapril, 2 doses of hydralazine and a dose of fentanyl without sustained improvement in her blood pressures or pain so request was made for admission. At the time of my evaluation, patient rates the pain as moderate to severe in the middle of the back. Currently denying any pain shooting down her legs but she has had it in the past. No particular radiation of the pain but it feels like something is in the bone. Nothing is really seem to make it better or worse. Some of the pain she has had for a long time. She had been on tramadol until about a year ago but was concerned about getting addicted and quit taking it. She gets some relief taking Tylenol once a day but has not tried taking it more than that very often. She has been prescribed Flexeril but it does not sound like that has helped either. She denies any chest pain. She has not had any trouble breathing at rest but it sounds like the pain is severe enough with significant spasms to maybe take her breath away a little bit. She does have some shortness of breath on exertion. Not having lower extremity edema. Pain has limited some of her activity. She has a history of high blood pressure and high cholesterol but no known cardiac history otherwise. 2-hour troponin delta is negative. EKG with nonspecific changes only. A BNP was checked and was elevated at 1253. Not prior for comparison. No history of CHF. No orthopnea or PND described. Nocturia is noted. With 2 ED visits in 2 days, elevated blood pressures, and such, will admit overnight for monitoring and a bit more evaluation/treatment. Review of Systems Const: Denies: fever(s) or chills Eyes: Denies: change in vision ENMT: Denies: tinnitus : Reports: nocturia, urinary incontinence and other (Some mild improvement with use of Premarin cream recently); Denies: dysuria Neuro: Reports: lack of coordination and difficulty walking (Sometimes); Denies: headache(s) or dizziness Angus/Lymph: Denies: easy bruising or easy bleeding Medications/Allergies Home Medications Medication Instructions Recorded Confirmed Last Taken Type ascorbate calcium (vitamin C) 500 500 mg PO DAILY 08/11/19 06/22/22 06/21/22 History mg tablet omega-3 fatty acids 1,000 mg 1,000 mg PO DAILY 08/11/19 06/22/22 06/21/22 History capsule (Fish Oil Concentrate) cholecalciferol (vitamin D3) 10 10 mcg PO DAILY 04/16/21 06/22/22 06/21/22 History mcg (400 unit) capsule cetirizine 10 mg tablet (Zyrtec) 10 mg PO DAILY PRN allergy 06/18/21 06/22/22 Unknown Rx symptoms #30 tabs ferrous sulfate 325 mg (65 mg 325 mg PO DAILY #90 tabs 01/15/22 06/22/22 06/21/22 Rx iron) tablet cyclobenzaprine 10 mg tablet 10 mg PO BID PRN muscle spasm 20 05/08/22 06/22/22 Unknown Rx days #40 tabs conjugated estrogens 0.625 mg/gram 0.625 mg vaginal DAILY #30 grams 05/14/22 06/22/22 06/21/22 Rx vaginal cream metoprolol tartrate 50 mg tablet 50 mg PO BID 06/22/22 06/22/22 06/21/22 History omeprazole 20 mg capsule,delayed 20 mg PO DAILY 06/22/22 06/22/22 06/21/22 History release pravastatin 40 mg tablet See Rx Instructions .Route .COMPLEX 06/22/22 06/22/22 06/21/22 History vitamin E acetate 134 mg (200 134 mg PO DAILY 06/22/22 06/22/22 06/21/22 History unit) capsule Allergies Allergy/AdvReac Type Severity Reaction Status Date / Time hydrocodone Allergy nausea Verified 05/14/22 07:03 PFSH Acute PFSH: Medical History (Updated 06/22/22 @ 21:48 by Janell Wynn MD) Allergic rhinitis due to allergen History of depression Hypercholesteremia Hypertension Osteoarthritis Surgical History (Updated 06/22/22 @ 20:54 by Janell Wynn MD) History of arthroscopy of left knee History of foot surgery right calcaneus fracture History of unilateral oophorectomy Status post total knee replacement, left Family History (Updated 06/22/22 @ 20:50 by Janell Wynn MD) Other Hyperlipidemia Hypertension Social History (Updated 06/22/22 @ 20:54 by Janell Wynn MD) Smoking and tobacco status: former smoker Alcohol intake: never Substance/Drug Use: never Vitals/I&O/Wt Last Vital Signs Temp 98.8 F 06/22/22 13:50 Pulse 70 06/22/22 20:37 Resp 15 06/22/22 20:37 BP 196/96 06/22/22 20:37 Pulse Ox 94 06/22/22 20:37 O2 Del Method 06/22/22 18:00 Weight last 48 hrs Weight 74.843 kg Physical Exam Narrative: Awake and alert, oriented to person, place and situation though some difficulty recalling's timeframes of previous events and details. Pupils are equally reactive. No nystagmus. Extraocular movements are intact. Oropharynx with dry mucous membranes. Lungs are clear to auscultation. Cardiovascular exam reveals a regular rhythm. No JVD is noted. Abdomen is soft, nontender, including in the suprapubic region. No pitting edema to lower extremities. Pulses are equal x4 with brisk capillary refill. Moving all 4 extremities, strength equal bilaterally. Face symmetric. Speech clear. Data 06/22/22 14:15 06/22/22 14:47 Other Labs: Radiology Impressions Head CT 06/22/22 14:19 IMPRESSION: 1. No acute intracranial abnormality. 2. Mild sinus disease. Laboratory Results WBC 7.6 10^3/uL (4.0-10.0) 06/22/22 14:15 RBC 3.09 10^6/uL (4.1-5.3) L 06/22/22 14:15 Hgb 10.8 g/dL (11.5-15.3) L 06/22/22 14:15 Hct 32.8 % (37.0-47.0) L 06/22/22 14:15 MCV 106.1 fl (81-99) H 06/22/22 14:15 MCH 35.0 pg (28.0-34.0) H 06/22/22 14:15 MCHC 32.9 g/dL (30.0-36.0) 06/22/22 14:15 RDW 13.1 % (12.1-15.1) 06/22/22 14:15 Plt Count 329 10^3/cmm (130-400) 06/22/22 14:15 MPV 9.9 fL (7.4-10.4) 06/22/22 14:15 Neut % (Auto) 56.3 % 06/22/22 14:15 Lymph % (Auto) 28.7 % 06/22/22 14:15 [place] % (Auto) 11.1 % 06/22/22 14:15 Eos % (Auto) 2.4 % 06/22/22 14:15 Baso % (Auto) 1.1 % 06/22/22 14:15 Neut # (Auto) 4.29 10^3/uL (1.8-7.7) 06/22/22 14:15 Lymph # (Auto) 2.2 10^3/uL (0.8-4.8) 06/22/22 14:15 [place] # (Auto) 0.8 10^3/uL (0.2-0.9) 06/22/22 14:15 Eos # (Auto) 0.2 10^3/uL (0.0-0.8) 06/22/22 14:15 Baso # (Auto) 0.1 10^3/uL (0.0-0.1) 06/22/22 14:15 Nucleated RBC % (auto) 1.2 % 06/22/22 14:15 Nucleated RBCs # 0.1 /100WBC 06/22/22 14:15 Sodium 133 mmol/L (136-145) L 06/22/22 14:47 Potassium 4.7 mmol/L (3.5-5.1) 06/22/22 14:47 Chloride 99 mmol/L (98-107) 06/22/22 14:47 Carbon Dioxide 23 mmol/L (22-29) 06/22/22 14:47 Anion Gap 15.7 (5-19) 06/22/22 14:47 BUN 15 mg/dL (8-23) 06/22/22 14:47 Creatinine 0.7 mg/dL (0.5-0.9) 06/22/22 14:47 GFR Calculation Not Reportable 06/22/22 14:47 Glucose 79 mg/dL (65-115) 06/22/22 14:47 Calculated Osmolality 276 mOsm/kg (285-295) L 06/22/22 14:47 Calcium 9.0 mg/dL (8.5-10.5) 06/22/22 14:47 Total Bilirubin 0.5 mg/dL (0.15-1.2) 06/22/22 14:47 AST 30 U/L (0-32) 06/22/22 14:47 ALT 19 U/L (0-33) 06/22/22 14:47 Alkaline Phosphatase 72 U/L (35-105) 06/22/22 14:47 Troponin T Baseline 33 ng/L (0-10) H 06/22/22 14:47 Troponin T 120 Minute 31.40 ng/L (0-10) H 06/22/22 16:43 Delta Troponin T -1.60 ABS# (0-10) L 06/22/22 16:43 C-Reactive Protein 7.5 mg/L (0.0-4.9) H 06/22/22 14:47 NT-Pro-B Natriuret Pep 1253 pg/mL (0-450) H 06/22/22 14:47 Total Protein 7.2 g/dL (6.6-8.7) 06/22/22 14:47 Albumin 4.0 g/dL (3.5-5.2) 06/22/22 14:47 Globulin 3.2 g/dL (1.3-4.6) 06/22/22 14:47 Procalcitonin 0.03 ng/mL (0-0.5) 06/22/22 14:47 TSH 1.48 uIU/mL (0.27-4.20) 06/22/22 14:47 Urine Color Yellow (Yellow) 06/22/22 15:43 Urine Appearance Clear (CLEAR) 06/22/22 15:43 Urine pH 7 (5-7) 06/22/22 15:43 Ur Specific [place] 1.005 (1.005-1.030) 06/22/22 15:43 Urine Protein Neg (Negative) 06/22/22 15:43 Urine Glucose (UA) Norm (Normal) 06/22/22 15:43 Urine Ketones Negative (Negative) 06/22/22 15:43 Urine Blood Neg (Negative) 06/22/22 15:43 Urine Nitrate Negative (Negative) 06/22/22 15:43 Urine Bilirubin Neg (Negative) 06/22/22 15:43 Urine Urobilinogen Norm mg/dL (Negative) 06/22/22 15:43 Ur Leukocyte Esterase Negative (Negative) 06/22/22 15:43 Other data: DEXA from 05/21/22 IMPRESSION: Normal bone mineralization lumbar spine. Normal bone mineralization femoral necks. Patient's FRAX calculated 10 year probability for major osteoporotic fracture is 20.0 % and osteoporotic hip fracture is 4.8%. Bone mineral density in the lumbar spine increased 1.6% since 2018. Bone mineral density femoral necks increased 1.2% since [address] 06/21/22 FINDINGS: Bones/joints: There is mild scoliosis of the lumbar spine convex to the patient's left with moderate-advanced asymmetric degenerative disc/endplate changes with accompanying osteophytes more pronounced left of midline in the upper lumbar spine and right of midline in the lower lumbar spine. There are no compression fractures or spondylolisthesis. L1-L2: Degenerative disc space narrowing with endplate osteophytic lipping and annular disc bulge flattening the anterior thecal sac, imparting mild-moderate stenosis of the central canal L2-L3: Degenerative disc space narrowing with diffuse annular disc bulge with mild plate endplate osteophytic lipping and facet arthrosis flattening the anterior thecal sac, imparting moderate stenosis of the central canal and mild foraminal narrowing bilaterally. L3-L4: Diffuse annular disc bulge with facet arthrosis constricting the thecal sac, imparting severe stenosis of the central canal and mild foraminal narrowing bilaterally. L4-L5: Degenerative disc space narrowing with asymmetric right-sided annular disc bulge with endplate osteophytic lipping and facet arthrosis constricting the thecal sac imparting severe stenosis of the central canal and moderate narrowing of the right neural foramina. L5-S1: Diffuse annular disc bulge with accompanying facet arthrosis flattening the anterior thecal sac, imparting moderate stenosis of the central canal and neural foramina bilaterally. Vasculature: Abdominal aorta and iliac vessels are diffusely calcified. No prevertebral paraspinal soft tissue swelling. Soft tissues: See Vasculature finding. CT/CT lumbar spine wo con* [id number] IMPRESSION: Advanced degenerative changes resulting in multilevel degenerative spinal stenosis most pronounced at L3-L4 and L4-L5 with there is severe narrowing of the spinal canal. A&P Assessment and plan (1) Uncontrolled hypertension: Blood pressures are clearly not controlled right now. I am struggling to discern if the pain is causing the blood pressures to get up or if the high blood pressures are causing the symptoms that she has been in experiencing periodically recently such as the transiently unsteady gait and increased falls. Not really having other associated cardiac symptoms per se. Review of prior records shows that she has had higher blood pressures in the past but not usually to this degree. She does not come across as being particular anxious but she does look uncomfortable. The increased blood pressure values could be due to uncontrolled pain but pressures only partially improve with pain medication that has been administered. She does not utilize narcotics or illicit medications nor benzodiazepines regularly. She does not drink alcohol. No known history of kidney disease. No known history of coronary artery disease or cardiomyopathy nor sleep apnea. Not on medications such as clonidine that might cause rebound hypertension. Patient assumed that dosing of lisinopril and losartan would be the same, partially contributing to her changing medications around. Most recent prescription for losartan was interestingly written in February for 90-day supply which should have run out by now. Mrs. Fabian mentioned having a couple of months of leftover lisinopril that she has been taking. (2) Weakness: Sounds more general than focal, at times more of an unsteady gait with both of her knees giving out leading to a fall. She has had TSH checked several times recently which has been normal. (3) Elevated brain natriuretic peptide (BNP) level: With no prior values. While she does not describe classic respiratory symptoms of CHF as something that is bothering her, she does mention some shortness of breath with exertion and it sounds like she gets up frequently to urinate at night. Urine appears quite dilute. No peripheral edema. Lungs are clear. Unclear significance at this time. (4) Back pain of thoracolumbar region: There is both an acute component as well as a chronic one with her back pain. She has not really tried more than once a day Tylenol for control lately due to concerns about getting addicted to something. She is willing to see if she gets any relief with some other medications as long as we avoid hydrocodone which she cannot tolerate due to nausea. I reviewed the severe degenerative changes noted on CT of the lumbar spine yesterday with patient and her daughter. Currently not demonstrating obviously new neurological symptoms beyond potential increased radicular pain. (5) Hypercholesteremia: Chronically on statin therapy (6) Macrocytic anemia: Macrocytosis goes back as far as 2018. Has been mildly anemic since mid 2022. No reported blood loss. On iron therapy. Hemoglobin is stable from prior values. Plan Patient admission Continue serial cardiac enzymes Echocardiogram Telemetry monitoring overnight We will give 1 dose of IV Lasix and see if blood pressure improves Continue home metoprolol Resume losartan dosing PRN antihypertensives, monitoring response Monitor urine output Tylenol and tramadol as needed for back pain, encourage patient to take when needed to see if we can get her back pain under control We will monitor response to IV morphine recently administered for severe back pain Continue as needed Raneribrenda Does not appear to have had any response to diazepam administered in the emergency room so I have held off on further benzodiazepines presently PT evaluation secondary to reported gait instability May benefit from referral for orthopedic/spine evaluation versus consideration for MRI but given that she has only really tried once daily Tylenol and has a history of chronic back pain would like to see how she responds to additional pain control Laxative therapy while on pain medicines Check CK level Continue home PPI I have held most home vitamins currently Supportive care otherwise Findings, concerns and plans were discussed with patient and her daughter both were given an opportunity to ask questions Anticipate discharge home with outpatient follow-up Full code Attestations Medical Necessity Statement*: Anticipated stay less than 2 midnights currently for diagnoses and reasons noted above plans are as indicated. Elevated blood pressures have the potential to become organ or limb threatening if not able to get under control. Diagnoses Uncontrolled hypertension I10 Weakness R53.1 Elevated brain natriuretic peptide (BNP) level R79.89 Back pain of thoracolumbar region M54.50; M54.6 Hypercholesteremia E78.00 Macrocytic anemia D53.9
--- NOTE | 2022-06-22 21:37 | XRR_ITS ---
PROCEDURE INFORMATION: Exam: XR Chest Exam date and time: 06/22/2022 9:48 PM Age: 77 years old Clinical indication: Other: High BP; Additional info: High blood pressure TECHNIQUE: Imaging protocol: Radiologic exam of the chest. Views: 1 view. COMPARISON: CR XR chest 1V [id number] 06/19/2017 6:41 PM FINDINGS: Lungs: Cardiac silhouette size, and vascularity are somewhat accentuated, likely related to poor inspiration/expansion however clinical correlation for mild CHF should be obtained. Upper lungs are clear. Lung bases are suboptimally assessed. Multiple calcified pulmonary granulomas are again noted. Pleural spaces: No pleural effusion. No pneumothorax. Heart/Mediastinum: As above. Bones/joints: No acute osseous findings. Other findings: Single view was submitted. XR/XR chest 1V portable [id number] IMPRESSION: 1. Accentuated cardiac silhouette size and vascularity. See discussion above. 2. No obvious acute consolidation. Suboptimal lung base assessment. Followup including lateral view may be obtained if clinically indicated.
[2022-06-22 21:42] LABS: Troponin 5 6HR 22.41 ng/L (0-10)
[2022-06-22 22:03] LABS: Troponin 5 6HR Delta -10.59 ng/L (0-12)
[2022-06-22] MEDS: nitroglycerin 1 gm/inch oint Pkt 1 INCH TOPICAL (22:08)
[2022-06-22] MEDS: sennosides 8.6 mg Tablet 17.2 MG PO (22:08)
[2022-06-22] MEDS: metoprolol tartrate 50 mg Tablet PO (22:08)
[2022-06-22] MEDS: FUROsemide 10 mg/mL SDV 2mL 20 MG IVP (22:08)
[2022-06-22] MEDS: ondansetron 2 mg/ML SDV 2 mL 4 MG IVP (23:10)
[2022-06-23] VITALS: BP 134/65; PULSE 65; RESP 16; TEMP 36.4; O2SAT 92
[2022-06-23] MEDS: nitroglycerin 1 gm/inch oint Pkt 1 INCH TOPICAL ×2 (02:39→09:28)
[2022-06-23 04:00] VITALS: BP 165/69; PULSE 76; RESP 15; TEMP 36.8; O2SAT 93
[2022-06-23 05:10] LABS: Anion Gap 17.2 (5-19); Blood Urea Nitrogen 17 mg/dL (8-23); Calcium 9.1 mg/dL (8.5-10.5); Carbon Dioxide 25 mmol/L (22-29); Chloride 100 mmol/L (98-107); Creatine Phosphokinase 63 U/L (26-192); Glucose 120 mg/dL (65-115); Magnesium 2.2 mg/dL (1.7-2.3); Osmolality Calculated 289 mOsm/kg (285-295); Phosphorus 4.6 mg/dL (2.5-4.5); Potassium 4.2 mmol/L (3.5-5.1); Sodium 138 mmol/L (136-145)
[2022-06-23 08:00] VITALS: BP 188/76; PULSE 81; RESP 16; TEMP 36.5; O2SAT 93
[2022-06-23] MEDS: TRAMadol 50 mg Tablet PO (08:27)
[2022-06-23] MEDS: ferrous sulfate EC 325 mg Tablet PO (08:27)
[2022-06-23 08:28] VITALS: BP 165/69
[2022-06-23] MEDS: losartan 50 mg Tablet PO (08:28)
[2022-06-23] MEDS: docusate sodium 100 mg Capsule PO (08:29)
[2022-06-23] MEDS: pantoprazole DR 40 mg Tablet PO (08:29)
[2022-06-23] MEDS: metoprolol tartrate 50 mg Tablet PO (08:29)
--- NOTE | 2022-06-23 10:24 | PC.CHAP ---
Pastoral Care Encounter/Spiritual Assessment Type of Contact [] Declined chairman & ceo visit [] Patient/Family/Request visit [] Outpatient visit [] Follow-up visit [] Physician referral [] Code/Alert [x] Routine visit [] Staff referral [] Actively dying [] Patient sleeping [x] Family support [] [] Out of room [] Palliative care [] [] Receiving care in room [] Pre-surgical visit [] Trauma [] Long length of stay [] ICU visit [] Other: Relational/Emotional Strength [x] Patient feels connected with others/family/visitors/staff [] Distress [] Loneliness/isolation [] Abandonment Spirituality of Patient [x] Person of Nina [] Attends Holiness of their Nina [x] Believes in Prayer [] Reads Bible or Rastafarian materials [] There are Spiritual issues to be addressed Rn Community Health Interventions [x] Prayer [] Active listening [] Non-anxious presence [] Spiritual/emotional support [] Crisis/trauma care [] Spiritual counseling [] Bereavement support [] Provided bereavement packet [] Provided Bible/devotional materials [] Provided toy/stuffed animal, coloring book to patient or family member [] Provided Communion [] Anointing/Isabella [] Salvation [] Completed spiritual assessment [] Other: Impact on Illness or Injury [] Angry [] Fearful [] Anxious [] Often cries [] Exhaustion [] Unable to work [] Unable to attend gnosticism [] Unable to walk/stand [] Unable to read [] Unable to drive [] Unable to eat/drink [] Unable to sleep [] Unable to be with family [] Patient intubated [] Other: Summary Time spent with patient 10 min
[2022-06-23 11:27] VITALS: BP 166/71; PULSE 68; RESP 15; TEMP 36.7; O2SAT 94
[2022-06-23 14:18] VITALS: BP 166/71; PULSE 68; RESP 15; TEMP 36.7; O2SAT 94
--- NOTE | 2022-06-23 18:57 | PM.DCS ---
Discharge Providers Date of Admission: 06/22/22 20:15 Date of Discharge: June 23, 2022 Attending Provider at Admission: Marlee Mota MD Attending Provider at Discharge: Sulaiman Staley Primary Care Provider: Dewayne Jackson MD Diagnoses at Discharge Discharge Diagnosis (1) Uncontrolled hypertension: Status: Acute (2) Weakness: Status: Acute (3) Elevated brain natriuretic peptide (BNP) level: Status: Acute (4) Back pain of thoracolumbar region: Status: Acute (5) Hypercholesteremia: Status: Chronic (6) Macrocytic anemia: Status: Chronic Reason for Visit Reason for Visit: high bp Brief History: Millicent Fabian is a 77 year old female who presented to the emergency room with chief complaint of elevated blood pressure and back pain.? She has a known history of hypertension.? She also has had some chronic back pain issues.? At 1 point in time her blood pressure has been managed with lisinopril 20 mg daily and metoprolol which is presently dosed at 50 mg twice a day.? She had a cough and was changed to losartan instead of lisinopril sometime last summer.? She reports that she thought the losartan was causing her to not feel well and she quit taking this and went back to taking lisinopril.? Getting an exact timeline of when these medication changes have occurred has been difficult to sort out.? She also mentioned thinking that the metoprolol may have been causing symptoms and held it at some point also. ? I have reviewed previous records and seen systolic pressures 160s to 170s before, generally at times that she was having more issues with pain around the time of hip surgery or after a fall.? She does describe falling periodically and has had a recent fall.? She describes being unsteady on her feet at times.? It sounds like she has thought the blood pressures medications may be causing this unsteadiness.? She has had times when both of her legs have given out and when she has some numbness in the fourth and fifth digits of both hands but no other described sensory or motor deficits noted beyond worsening bladder incontinence since a fall a few months ago.? With the recent fall, she has experienced increased back pain in the middle of the back central part, above what she normally has.? She was seen in the emergency room 06/21 because of the back pain.? She was found to have blood pressures as high as 228/81.? She received a dose of enalapril and hydralazine with improvement in her blood pressures to 142/83.? CT of the lumbar spine was done revealing advanced degenerative changes with multilevel degenerative spinal stenosis most pronounced at L3-L4 and L4-L5 with severe narrowing of the spinal canal.? No acute neurological deficits were noted and recommendation was to follow up with Dr Jackson outpatient.? She felt better at first, but today when checking her blood pressures, she again noted them to be 190s-200s systolic.? With the hypertension and continued pain in her back, she came again to the emergency room for evaluation.? She received diazepam, enalapril, 2 doses of hydralazine and a dose of fentanyl without sustained improvement in her blood pressures or pain so request was made for admission. At the time of my evaluation, patient rates the pain as moderate to severe in the middle of the back.? Currently denying any pain shooting down her legs but she has had it in the past.? No particular radiation of the pain but it feels like something is in the bone.? Nothing is really seem to make it better or worse.? Some of the pain she has had for a long time.? She had been on tramadol until about a year ago but was concerned about getting addicted and quit taking it.? She gets some relief taking Tylenol once a day but has not tried taking it more than that very often.? She has been prescribed Flexeril but it does not sound like that has helped either. ? She denies any chest pain.? She has not had any trouble breathing at rest but it sounds like the pain is severe enough with significant spasms to maybe take her breath away a little bit.? She does have some shortness of breath on exertion. Not having lower extremity edema.? Pain has limited some of her activity.? She has a history of high blood pressure and high cholesterol but no known cardiac history otherwise.? 2-hour troponin delta is negative.? EKG with nonspecific changes only.? A BNP was checked and was elevated at 1253.? Not prior for comparison.? No history of CHF.? No orthopnea or PND described.? Nocturia is noted.? With 2 ED visits in 2 days, elevated blood pressures, and such, will admit overnight for monitoring and a bit more evaluation/treatment. Hospital Course Hospital Course She received additional pain control with morphine while in hospital. Her pain improved. Blood pressures have improved as well with continued metoprolol, starting losartan, although as discussed with her would benefit from continued optimization. 166/71 today. She is feeling better. Denies being in pain today. She was also assessed by physical therapy and provided with home exercise program. She did well with PT. Additionally echocardiogram was ordered inpatient due to elevation of BNP, however, not obtained so far today yet, and is instead requested on outpatient basis. At discharge she was provided with prescription for losartan and prescription is also sent for lidocaine patch. Continue Tylenol as needed. Continue home exercise program. Her daughter will also be available in case she needs assistance. 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 Physical Exam Narrative: Companied by her daughter. Sitting up in chair. Const: COMMON NORMALS: patient oriented x3 and alert GENERAL APPEARANCE: cooperative ORIENTATION/CONSCIOUSNESS: Yes awake HENMT: COMMON NORMALS: oropharynx normal Neck/C-Spine: COMMON NORMALS: no JVD Resp: COMMON NORMALS: normal respiratory effort and clear to auscultation bilaterally AUSCULTATION: clear to auscultation bilaterally Cardio: COMMON NORMALS: no JVD, regular rhythm, S1 normal heart sound present, S2 normal heart sound present and No murmurs present (Cardio) RHYTHM: regular rhythm HEART SOUNDS: S1 normal heart sound present and S2 normal heart sound present GI: COMMON NORMALS: Normal to inspection, nondistended, normoactive bowel sounds present, Soft to palpation and non-tender PALPATION: Yes Soft to palpation Extremity: COMMON NORMALS: no joint enlargement and no pedal edema Neuro: COMMON NORMALS: patient oriented x3 and moves all extremities SENSORIUM/ORIENTATION: Yes alert Discharge Data Studies Completed and Pending Completed Studies During Hospitalization Category Date Time Status CT head wo con* [id number] Stat Cat Scan 06/22/22 14:19 Completed CXRP [XR chest 1V portable [id number]] Routine Exams 06/22/22 21:37 Completed Radiology Impressions Head CT 06/22/22 14:19 IMPRESSION: 1. No acute intracranial abnormality. 2. Mild sinus disease. Chest X-Ray 06/22/22 21:37 IMPRESSION: 1. Accentuated cardiac silhouette size and vascularity. See discussion above. 2. No obvious acute consolidation. Suboptimal lung base assessment. Followup including lateral view may be obtained if clinically indicated. Laboratory Results WBC 7.6 10^3/uL (4.0-10.0) 06/22/22 14:15 RBC 3.09 10^6/uL (4.1-5.3) L 06/22/22 14:15 Hgb 10.8 g/dL (11.5-15.3) L 06/22/22 14:15 Hct 32.8 % (37.0-47.0) L 06/22/22 14:15 MCV 106.1 fl (81-99) H 06/22/22 14:15 MCH 35.0 pg (28.0-34.0) H 06/22/22 14:15 MCHC 32.9 g/dL (30.0-36.0) 06/22/22 14:15 RDW 13.1 % (12.1-15.1) 06/22/22 14:15 Plt Count 329 10^3/cmm (130-400) 06/22/22 14:15 MPV 9.9 fL (7.4-10.4) 06/22/22 14:15 Neut % (Auto) 56.3 % 06/22/22 14:15 Lymph % (Auto) 28.7 % 06/22/22 14:15 [place] % (Auto) 11.1 % 06/22/22 14:15 Eos % (Auto) 2.4 % 06/22/22 14:15 Baso % (Auto) 1.1 % 06/22/22 14:15 Neut # (Auto) 4.29 10^3/uL (1.8-7.7) 06/22/22 14:15 Lymph # (Auto) 2.2 10^3/uL (0.8-4.8) 06/22/22 14:15 [place] # (Auto) 0.8 10^3/uL (0.2-0.9) 06/22/22 14:15 Eos # (Auto) 0.2 10^3/uL (0.0-0.8) 06/22/22 14:15 Baso # (Auto) 0.1 10^3/uL (0.0-0.1) 06/22/22 14:15 Nucleated RBC % (auto) 1.2 % 06/22/22 14:15 Nucleated RBCs # 0.1 /100WBC 06/22/22 14:15 Sodium 138 mmol/L (136-145) 06/23/22 04:00 Potassium 4.2 mmol/L (3.5-5.1) 06/23/22 04:00 Chloride 100 mmol/L (98-107) 06/23/22 04:00 Carbon Dioxide 25 mmol/L (22-29) 06/23/22 04:00 Anion Gap 17.2 (5-19) 06/23/22 04:00 BUN 17 mg/dL (8-23) 06/23/22 04:00 Creatinine 0.8 mg/dL (0.5-0.9) 06/23/22 04:00 GFR Calculation Not Reportable 06/23/22 04:00 Glucose 120 mg/dL (65-115) H 06/23/22 04:00 Calculated Osmolality 289 mOsm/kg (285-295) 06/23/22 04:00 Calcium 9.1 mg/dL (8.5-10.5) 06/23/22 04:00 Phosphorus 4.6 mg/dL (2.5-4.5) H 06/23/22 04:00 Magnesium 2.2 mg/dL (1.7-2.3) 06/23/22 04:00 Total Bilirubin 0.5 mg/dL (0.15-1.2) 06/22/22 14:47 AST 30 U/L (0-32) 06/22/22 14:47 ALT 19 U/L (0-33) 06/22/22 14:47 Alkaline Phosphatase 72 U/L (35-105) 06/22/22 14:47 Creatine Kinase 63 U/L (26-192) 06/23/22 04:00 Troponin T Baseline 33 ng/L (0-10) H 06/22/22 14:47 Troponin T 120 Minute 31.40 ng/L (0-10) H 06/22/22 16:43 Delta Troponin T -1.60 ABS# (0-10) L 06/22/22 16:43 Troponin T Hi Sens 6Hr 22.41 ng/L (0-10) H 06/22/22 21:00 Troponin T Hi Sens 6Hr Delta -10.59 ng/L (0-12) L 06/22/22 21:00 C-Reactive Protein 7.5 mg/L (0.0-4.9) H 06/22/22 14:47 NT-Pro-B Natriuret Pep 1253 pg/mL (0-450) H 06/22/22 14:47 Total Protein 7.2 g/dL (6.6-8.7) 06/22/22 14:47 Albumin 4.0 g/dL (3.5-5.2) 06/22/22 14:47 Globulin 3.2 g/dL (1.3-4.6) 06/22/22 14:47 Procalcitonin 0.03 ng/mL (0-0.5) 06/22/22 14:47 TSH 1.48 uIU/mL (0.27-4.20) 06/22/22 14:47 Urine Color Yellow (Yellow) 06/22/22 15:43 Urine Appearance Clear (CLEAR) 06/22/22 15:43 Urine pH 7 (5-7) 06/22/22 15:43 Ur Specific [place] 1.005 (1.005-1.030) 06/22/22 15:43 Urine Protein Neg (Negative) 06/22/22 15:43 Urine Glucose (UA) Norm (Normal) 06/22/22 15:43 Urine Ketones Negative (Negative) 06/22/22 15:43 Urine Blood Neg (Negative) 06/22/22 15:43 Urine Nitrate Negative (Negative) 06/22/22 15:43 Urine Bilirubin Neg (Negative) 06/22/22 15:43 Urine Urobilinogen Norm mg/dL (Negative) 06/22/22 15:43 Ur Leukocyte Esterase Negative (Negative) 06/22/22 15:43 Vitals Last Vital Signs Temp 98.0 F 06/23/22 14:18 Pulse 68 06/23/22 14:18 Resp 15 06/23/22 14:18 BP 166/71 06/23/22 14:18 Pulse Ox 94 06/23/22 14:18 O2 Del Method 06/23/22 11:27 Discharge Plan Discharge Patient Disposition: Home Condition: Stable Prescriptions: New losartan 50 mg Tablet 50 mg PO DAILY Qty: 90 0RF lidocaine 5 % adhesive patch,medicated 1 patch topical Q24H Qty: 15 0RF Rx Instructions: leave on most painful area for up to 12 hrs Continued omega-3 fatty acids [Fish Oil Concentrate] 1,000 mg capsule 1,000 mg PO DAILY ascorbate calcium (vitamin C) 500 mg tablet 500 mg PO DAILY cholecalciferol (vitamin D3) 10 mcg (400 unit) capsule 10 mcg PO DAILY cetirizine [Zyrtec] 10 mg tablet 10 mg PO DAILY PRN (Reason: allergy symptoms) Qty: 30 1RF conjugated estrogens 0.625 mg/gram cream 0.625 mg vaginal DAILY Qty: 30 2RF ferrous sulfate 325 mg (65 mg iron) tablet 325 mg PO DAILY Qty: 90 3RF cyclobenzaprine 10 mg tablet 10 mg PO BID PRN (Reason: muscle spasm) 20 Days Qty: 40 2RF vitamin E acetate 134 mg (200 unit) Capsule 134 mg PO DAILY pravastatin 40 mg tablet See Rx Instructions .ROUTE .COMPLEX Rx Instructions: 40 mg orally daily alternating every other day 20 mg day daily metoprolol tartrate 50 mg tablet 50 mg PO BID omeprazole 20 mg capsule,delayed release(DR/EC) 20 mg PO DAILY Discharge Orders: Discharge Order (Routine); Ordered 06/23/22 Ordered By: Sulaiman Staley Other Ambulatory Orders: CV. echo complete* [id number] (Routine) Timeframe: 1 Week Facility: [facility] [place] - Location: Radiology Ordered By: Sulaiman Staley Referrals: Dewayne Jackson MD [Primary Care Provider] - 07/01/22 8:30 am ( OFFICE WILL CALL WITH APPOINTMENT) Discharge Diet: Cardiac Patient Instructions: Losartan (By mouth), Lumbar Spinal Stenosis (GEN), Chronic Hypertension (GEN), Degenerative Disc Disease (GEN), Opioid Safety Activity Restrictions/Additional Instructions: Monitor blood pressures 3 times daily, write down values to bring to your appointment to continue to optimize control of high blood pressure. Follow-up with your primary doctor for reassessment of degenerative disc disease, spinal stenosis, continue to work with your primary doctor to optimize pain control, continue with home exercise program as instructed per physical therapy. Maintain fall precautions. Use cane or walker if possible. Follow-up with your primary doctor with regards to anemia. Follow-up for additional assessment with echocardiogram, follow-up with your primary doctor to discuss the results. [facility] [place] WILL CALL WITH APPOINTMENT Have a primary doctor follow-up your kidney function and electrolytes including potassium for reassessment with losartan. Follow-up with your primary doctor for reassessment of neuropathy in left fourth and fifth digits. Discharge Attestations Time Spent in Discharge Care*: greater than 30 min Quality Metrics Clinical Quality Measures [ No reported AMI, CVA or VTE this stay] Coding Level of Care Code Acute Code for Chg Fwd Diagnoses Uncontrolled hypertension I10 Weakness R53.1 Elevated brain natriuretic peptide (BNP) level R79.89 Back pain of thoracolumbar region M54.50; M54.6 Hypercholesteremia E78.00 Macrocytic anemia D53.9
== END 2022-06-23 14:19 | disposition home or self-care (01) ==
LOC: ER 19:48 → MEDSURG 20:38
PROVIDERS: Hospitalist; Admitting Provider Internal Medicine; Emergency Provider Emergency Medicine; PCP Family Medicine; Visit Provider Internal Medicine
DX: I10 Essential (primary) hypertension (principal); R53.1 Weakness; M54.6 Pain in thoracic spine; M54.50 Low back pain, unspecified; D53.9 Nutritional anemia, unspecified; E78.00 Pure hypercholesterolemia, unspecified; R79.89 Other specified abnormal findings of blood chemistry; Z87.891 Personal history of nicotine dependence
CPT/HCPCS: 36415; 70450; 71045; 80048; 80053; 81003; 82550; 83735; 83880; 84100; 84145; 84443; 84484; 85025; 86140; 93005; 96374; 96375; 96376; 97110; 97161; 99285; G0378; J0360; J1940; J2270; J2405; J3010; J3490

== ENCOUNTER → 2022-12-22 10:41 | Outpatient (BNVA) | payer MEDICARE, SELFPAY | PROVIDERS: PCP Family Medicine; Visit Provider Family Medicine | DX: R68.89 Other general symptoms and signs (principal) | CPT/HCPCS: 87400 ==

== ENCOUNTER 2023-02-02 09:48 | Outpatient (CLI) | payer MEDICARE, SELFPAY ==
--- NOTE | 2023-02-02 09:58 | MM_ITS ---
WS: [id number] SCREENING DIGITAL TOMOSYNTHESIS MAMMOGRAM WITH CAD HISTORY: screening exam COMPARISON: 06/19/2020 and 05/20/2017 Bilateral CC and MLO with tomosynthesis views submitted. Synthetic mammography reviewed. Computer aid ed detection analyzed. Breast composition: There are scattered areas of fibroglandular density. No suspicious masses, microc alcifications or architectural distortion. Benign calcifications. IMPRESSION: MM/[place] [id number] BI-RADS: 2-Benign FOLLOW UP: 1 Year Follow-up
== END 2023-02-02 09:49 | disposition home or self-care (01) ==
LOC: RAD 09:48
PROVIDERS: PCP Family Medicine; Visit Provider Family Medicine
DX: Z12.31 Encounter for screening mammogram for malignant neoplasm of breast (principal)
CPT/HCPCS: 77063; 77067

== ENCOUNTER → 2023-06-22 09:15 | Outpatient (BNVA) | payer MEDICARE, SELFPAY | PROVIDERS: PCP Family Medicine; Visit Provider Family Medicine | DX: I10 Essential (primary) hypertension (principal); E78.00 Pure hypercholesterolemia, unspecified; J30.89 Other allergic rhinitis; M51.16 Intervertebral disc disorders with radiculopathy, lumbar region; H11.001 Unspecified pterygium of right eye | CPT/HCPCS: 80053; 80061; 85025 ==

== ENCOUNTER 2023-08-09 11:43 | Emergency (ER) | payer MEDICARE, SELFPAY ==
[2023-08-09 12:03] VITALS: BP 196/69; PULSE 70; RESP 16; TEMP 36.8; O2SAT 98
[2023-08-09 12:43] LABS: Add Urine Microscopic? NO; Charge for UA Resulting for Rev
--- NOTE | 2023-08-09 12:59 | ED_ITS ---
HPI - Female Genitourinary General: Chief complaint: Urogenital-Female Stated complaint: burning urination Time Seen by Provider: 08/09/23 12:31 Source: patient Mode of arrival: ambulatory Limitations: no limitations History of Present Illness: 78-year-old female states that over the last week she has been having burning with urination. States she feels like she is burning down in her groin area. She denies any fevers denies any nausea or vomiting. States she also has foot pain but is chronic in nature. Associated symptoms: Deny abdominal pain, headache(s) or nausea Review of Systems Const: Denies: fever(s), chills, body aches or change in appetite ENMT: Denies: throat pain or dental pain Card: Denies: chest pain Resp: Denies: dyspnea GI: Denies: abdominal pain, nausea, vomiting or diarrhea : Reports: dysuria Musc: Reports: extremity pain; Denies: neck pain or back pain Skin/Breast: Denies: rash Neuro: Denies: headache(s) PFSH ED PFSH: Medical History Spinal stenosis at L4-L5 level Osteoarthritis Allergic rhinitis due to allergen Hypercholesteremia History of depression Hypertension Surgical History History of unilateral oophorectomy History of arthroscopy of left knee History of foot surgery right calcaneus fracture Status post total knee replacement, left Family History Other Hyperlipidemia Hypertension Social History Smoking and tobacco/nicotine status: former use of tobacco/nicotine Alcohol intake: never Substance/Drug Use: never Physical Exam Const: COMMON NORMALS: no acute distress, patient oriented x3 and healthy appearing HENMT: COMMON NORMALS: normocephalic and atraumatic HEAD & SCALP: normocephalic and atraumatic Eye: COMMON NORMALS: conjunctivae normal CONJUNCTIVA: Yes conjunctivae normal Neck/C-Spine: COMMON NORMALS: full ROM and supple Chest: COMMONS NORMALS: normal inspection of the chest Resp: COMMON NORMALS: normal respiratory effort Cardio: COMMON NORMALS: regular rate, regular rhythm and No murmurs present (Cardio) RATE: regular rate RHYTHM: regular rhythm GI: COMMON NORMALS: Normal to inspection, nondistended, normoactive bowel sounds present, Soft to palpation, non-tender and no masses PALPATION: Yes Soft to palpation : OTHER: No skin irritation or rashes noticed in pelvic region or vagina Extremity: COMMON NORMALS: normal to inspection and full ROM NARRATIVE EX TREMITY EXAM: No erythema to lower extremities distal pulses intact Neuro: COMMON NORMALS: patient oriented x3, moves all extremities and no focal motor deficits Psych: COMMON NORMALS: mental status grossly normal, Normal thought process present and cooperative THOUGHT PROCESS: Normal thought process present Skin: COMMON NORMALS: no rashes or lesions noted and no wounds GENERAL SKIN EXAM: no rashes or lesions noted Course Vital Signs: Vital signs: Vital Signs Temperature 98.2 F 08/09/23 12:03 Pulse Rate 70 08/09/23 12:03 Respiratory Rate 16 08/09/23 12:03 Blood Pressure 196/69 08/09/23 12:03 Pulse Oximetry 98 08/09/23 12:03 [facility] - Female Medical Decision Making Patient presents here with dysuria she is well-appearing here exam is benign no rashes noted urinalysis shows no UTI she is stable for discharge follow-up with PCP return if worsening. Medical Records I reviewed the patient's medical records. Lab Data I reviewed the patient's lab results. Laboratory Results Urine Color Yellow (Yellow) 08/09/23 Unknown Urine Appearance Clear (CLEAR) 08/09/23 Unknown Urine pH 7 (5-7) 08/09/23 Unknown Ur Specific [place] 1.005 (1.005-1.030) 08/09/23 Unknown Urine Protein Neg (Negative) 08/09/23 Unknown Urine Glucose (UA) Norm (Normal) 08/09/23 Unknown Urine Ketones Negative (Negative) 08/09/23 Unknown Urine Blood Neg (Negative) 08/09/23 Unknown Urine Nitrate Negative (Negative) 08/09/23 Unknown Urine Bilirubin Neg (Negative) 08/09/23 Unknown Urine Urobilinogen Norm mg/dL (Negative) 08/09/23 Unknown Ur Leukocyte Esterase Negative (Negative) 08/09/23 Unknown No radiology studies performed this visit Discharge Plan Discharge Patient Disposition: Home Clinical Impression: Dysuria Condition: Stable Prescriptions: No Action omega-3 fatty acids [Fish Oil Concentrate] 1,000 mg capsule 1,000 mg PO DAILY ascorbate calcium (vitamin C) 500 mg tablet 500 mg PO DAILY cholecalciferol (vitamin D3) 10 mcg (400 unit) capsule 10 mcg PO DAILY amoxicillin 875 mg tablet 875 mg PO BID Qty: 14 0RF promethazine-DM 6.25-15 mg/5 mL syrup 5 ml PO Q6H Qty: 118 0RF Premarin 0.625 mg/gram cream See Rx Instructions .ROUTE .COMPLEX Qty: 30 2RF Dose Instruction: APPLY 0.625MG VAGINALLY EVERY DAY Rx Instructions: APPLY 0.625MG VAGINALLY EVERY DAY pravastatin 20 mg tablet 20 mg PO DAILY Qty: 90 3RF Rx Instructions: intentional reduction to the 20 mg preparation....each day losartan 50 mg tablet 50 mg PO DAILY Qty: 90 2RF ferrous sulfate 325 mg (65 mg iron) tablet 325 mg PO DAILY Qty: 90 3RF cetirizine [Zyrtec] 10 mg tablet 10 mg PO DAILY PRN (Reason: allergy symptoms) Qty: 30 1RF Rx Instructions: tab or capsule ok cyclobenzaprine 10 mg tablet See Rx Instructions .ROUTE .COMPLEX Qty: 40 2RF Dose Instruction: TAKE 1 TABLET BY MOUTH TWICE DAILY NEEDED FOR MUSCLE SPASM FOR 20 DAYS Rx Instructions: TAKE 1 TABLET BY MOUTH TWICE DAILY NEEDED FOR MUSCLE SPASM FOR 20 DAYS metoprolol tartrate 50 mg tablet See Rx Instructions .ROUTE .COMPLEX Qty: 180 1RF Dose Instruction: TAKE ONE TABLET BY MOUTH TWICE DAILY Rx Instructions: TAKE ONE TABLET BY MOUTH TWICE DAILY omeprazole 20 mg capsule,delayed release(DR/EC) See Rx Instructions .ROUTE .COMPLEX Qty: 90 1RF Dose Instruction: take 1 capsule BY MOUTH EVERY DAY Rx Instructions: take 1 capsule BY MOUTH EVERY DAY tramadol 50 mg tablet 50 mg PO Q8H PRN (Reason: pain) 30 Days Qty: 90 3RF vitamin E acetate 134 mg (200 unit) Capsule 134 mg PO DAILY lidocaine 5 % adhesive patch,medicated 1 patch topical Q24H Qty: 15 0RF Rx Instructions: leave on most painful area for up to 12 hrs Discharge Orders: Discharge ED (Routine); Ordered 08/09/23 Ordered By: Rob Kaur Referrals: Dewayne Jackson MD [Primary Care Provider] - Discharge Diet: Advance as tolerated Discharge Activity: Resume usual activity Patient Instructions: Dysuria (ED) Coding Level of Care Code ED M[employer] for John Mora
[2023-08-09 13:13] LABS: Bilirubin Urine Neg (Negative); Blood Urine Neg (Negative); Glucose Urine UA Norm (Normal); Ketones Urine Negative (Negative); Leukocyte Esterase Urine Negative (Negative); Nitrate Urine Negative (Negative); Protein Urine Neg (Negative); Specific Gravity, Urine 1.005 (1.005-1.030); Urine Appearance Clear (CLEAR); Urine Color Yellow (Yellow); Urobilinogen Urine Norm (Negative); pH Urine 7 (5-7)
[2023-08-09 14:08] VITALS: BP 172/78; PULSE 85; O2SAT 95
== END 2023-08-09 14:21 | disposition home or self-care (01) ==
PROVIDERS: Emergency Provider Emergency Medicine; PCP Family Medicine
DX: R30.0 Dysuria (principal); I10 Essential (primary) hypertension; Z87.891 Personal history of nicotine dependence
CPT/HCPCS: 81003; 99283

== ENCOUNTER 2023-08-14 17:35 | Emergency (ER) | payer MEDICARE, SELFPAY ==
[2023-08-14 17:37] VITALS: BP 227/108; PULSE 85; RESP 18; TEMP 37.1; O2SAT 99
--- NOTE | 2023-08-14 17:38 | XRR_ITS ---
PROCEDURE INFORMATION: Exam: XR Chest Exam date and time: 08/14/2023 6:19 PM Age: 78 years old Clinical indication: Shortness of breath and other: High BP; Patient HX: HX of high BP; Additional info: Dyspnea/cough TECHNIQUE: Imaging protocol: Radiologic exam of the chest. Views: 1 view. COMPARISON: CR XR chest 1V portable [id number] 06/22/2022 9:48 PM FINDINGS: Lungs: Calcified granulomas in the right lung base. No focal consolidation. Pleural spaces: Unremarkable. No pleural effusion. No pneumothorax. Heart/Mediastinum: Unremarkable. No cardiomegaly. Bones/joints: Unremarkable. XR/XR chest 1V portable [id number] IMPRESSION: No focal consolidation.
--- NOTE | 2023-08-14 17:40 | W.ED.SYNCOPE ---
Documented by User: Ben Novoa DO 08/15/23 16:25 HPI - Syncope General: Chief Complaint: Fall Stated Complaint: fall, reaction to medicine Time Seen by Provider: 08/14/23 17:37 Source: patient Mode of arrival: ambulatory History of Present Illness: 78-year-old female presents emergency room complaining of generally feeling unwell. 5 days ago she was seen emergency room concerned she had a bladder infection there is no infection noted. Yesterday she had a steroid shot for her hip. 4 days ago she had gotten up had a sharp spasming pain in her anterior aspect of her right hip which caused her to fall as it was intense enough she felt like she might have actually passed out. She has a history of hypertension she is on valsartan and metoprolol. This morning around 3 AM she woke up with heart palpitations and she took her metoprolol dose early she took another dose at 1:00 this afternoon. She feels very flushed and just generally unwell. She feels like she may still have a bladder infection. She denies any recent medication changes. Reviewing her old history she does have a history of some spinal stenosis at the L3-4 level. She had seen Dr. Jackson yesterday in the office. In reviewing his notes would seem he has difficult time following her account of events as we did in the emergency room. He given the patient a SI joint injection and a steroid taper. MD complaint: loss of consciousness Associated symptoms: Deny abdominal pain, chest pain or fever(s) Treatments prior to arrival: medication (Metoprolol) Review of Systems Const: Denies: fever(s) or chills Card: Reports: palpitations; Denies: chest pain or edema Resp: Denies: dyspnea GI: Denies: abdominal pain : Denies: dysuria, urinary frequency or urinary urgency Musc: Denies: neck pain or back pain Skin/Breast: Denies: rash PFSH ED PFSH: Medical History Spinal stenosis at L4-L5 level Osteoarthritis Allergic rhinitis due to allergen Hypercholesteremia History of depression Hypertension Surgical History History of unilateral oophorectomy History of arthroscopy of left knee History of foot surgery right calcaneus fracture Status post total knee replacement, left Family History Other Hyperlipidemia Hypertension Social History Smoking and tobacco/nicotine status: former use of tobacco/nicotine Alcohol intake: never Substance/Drug Use: never Physical Exam Const: COMMON NORMALS: no acute distress GENERAL APPEARANCE: cooperative and comfortable ORIENTATION/CONSCIOUSNESS: Yes awake, Yes oriented to person, Yes oriented to place and Yes oriented to time HENMT: COMMON NORMALS: normocephalic, atraumatic and hearing grossly normal bilaterally HEAD & SCALP: normocephalic and atraumatic Resp: COMMON NORMALS: normal respiratory effort, No retractions, No use of accessory muscles and clear to auscultation bilaterally AUSCULTATION: clear to auscultation bilaterally Cardio: COMMON NORMALS: regular rate, regular rhythm and No murmurs present (Cardio) RATE: regular rate RHYTHM: regular rhythm GI: COMMON NORMALS: Soft to palpation and No hepatosplenomegaly present AUSCULTATION: Yes normoactive bowel sounds PALPATION: Yes Soft to palpation, No Tenderness to palpation present (GI), No Guarding due to palpation present (GI) and Yes No hepatosplenomegaly present Extremity: COMMON NORMALS: normal to inspection, capillary refill normal, no clubbing, cyanosis or edema, no calf tenderness and no pedal edema Neuro: SENSORIUM/ORIENTATION: Yes oriented to person, Yes oriented to place and Yes oriented to time Skin: COMMON NORMALS: no rashes or lesions noted GENERAL SKIN EXAM: no rashes or lesions noted Course Vital Signs: Vital signs: Vital Signs Temperature 98.8 F 08/14/23 17:37 Pulse Rate 60 08/14/23 21:20 Respiratory Rate 18 08/14/23 21:20 Blood Pressure 188/97 08/14/23 21:20 Pulse Oximetry 100 08/14/23 21:20 Oxygen Delivery Me thod Room Air 08/14/23 20:14 MDM - Syncope Medical Decision Making Care signed out to Dr. Call at change of shift. See final notes for diagnosis and disposition. Medical Records I reviewed the patient's medical records. Lab Data I reviewed the patient's lab results. 08/14/23 18:00 08/14/23 18:00 Radiology Impressions Chest X-Ray 08/14/23 17:38 IMPRESSION: No focal consolidation. Laboratory Results WBC 10.23 10^3/uL (3.29-11.43) 08/14/23 18:00 RBC 3.22 10^6/uL (3.85-5.65) L 08/14/23 18:00 Hgb 11.60 g/dL (11.27-16.99) 08/14/23 18:00 Hct 34.0 % (36-47) L 08/14/23 18:00 MCV 105.6 fl (85-98) H 08/14/23 18:00 MCH 36.0 pg (27-33) H 08/14/23 18:00 MCHC 34.1 g/dL (30-55) 08/14/23 18:00 RDW 12.2 % (12.1-15.1) 08/14/23 18:00 Plt Count 299 10^3/cmm (157-399) 08/14/23 18:00 MPV 10.4 fL (7.4-10.4) 08/14/23 18:00 Neut % (Auto) 49.6 % 08/14/23 18:00 Lymph % (Auto) 37.4 % 08/14/23 18:00 [place] % (Auto) 11.6 % 08/14/23 18:00 Eos % (Auto) 0.9 % 08/14/23 18:00 Baso % (Auto) 0.2 % 08/14/23 18:00 Neut # (Auto) 5.07 10^3/uL (1.8-7.7) 08/14/23 18:00 Lymph # (Auto) 3.8 10^3/uL (0.8-4.8) 08/14/23 18:00 [place] # (Auto) 1.2 10^3/uL (0.2-0.9) H 08/14/23 18:00 Eos # (Auto) 0.1 10^3/uL (0.0-0.8) 08/14/23 18:00 Baso # (Auto) 0.0 10^3/uL (0.0-0.1) 08/14/23 18:00 Nucleated RBC % (auto) 0.3 % 08/14/23 18:00 Nucleated RBCs # 0.0 /100WBC 08/14/23 18:00 Sodium 137 mmol/L (136-145) 08/14/23 18:00 Potassium 4.1 mmol/L (3.5-5.1) 08/14/23 18:00 Chloride 99 mmol/L (98-107) 08/14/23 18:00 Carbon Dioxide 28 mmol/L (22-29) 08/14/23 18:00 Anion Gap 14.1 (5-19) 08/14/23 18:00 BUN 22 mg/dL (8-23) 08/14/23 18:00 Creatinine 0.7 mg/dL (0.5-0.9) 08/14/23 18:00 GFR Calculation Not Reportable 08/14/23 18:00 Glucose 107 mg/dL (65-115) 08/14/23 18:00 Calculated Osmolality 288 mOsm/kg (285-295) 08/14/23 18:00 Calcium 9.1 mg/dL (8.5-10.5) 08/14/23 18:00 Total Bilirubin 0.7 mg/dL (0.15-1.2) 08/14/23 18:00 AST 34 U/L (0-32) H 08/14/23 18:00 ALT 25 U/L (0-33) 08/14/23 18:00 Alkaline Phosphatase 75 U/L (35-105) 08/14/23 18:00 Total Protein 8.1 g/dL (6.6-8.7) 08/14/23 18:00 Albumin 4.9 g/dL (3.5-5.2) 08/14/23 18:00 Globulin 3.2 g/dL (1.3-4.6) 08/14/23 18:00 Urine Color Yellow (Yellow) 08/14/23 18:54 Urine Appearance Clear (CLEAR) 08/14/23 18:54 Urine pH 7 (5-7) 08/14/23 18:54 Ur Specific [place] 1.005 (1.005-1.030) 08/14/23 18:54 Urine Protein Neg (Negative) 08/14/23 18:54 Urine Glucose (UA) Norm (Normal) 08/14/23 18:54 Urine Ketones Negative (Negative) 08/14/23 18:54 Urine Blood Neg (Negative) 08/14/23 18:54 Urine Nitrate Negative (Negative) 08/14/23 18:54 Urine Bilirubin Neg (Negative) 08/14/23 18:54 Urine Urobilinogen Neg mg/dL (Negative) 08/14/23 18:54 Ur Leukocyte Esterase Negative (Negative) 08/14/23 18:54 Discharge Plan Discharge Patient Disposition: Home Clinical Impression: Steroid side effects Condition: Stable Prescriptions: No Action omega-3 fatty acids [Fish Oil Concentrate] 1,000 mg capsule 1,000 mg PO DAILY ascorbate calcium (vitamin C) 500 mg tablet 500 mg PO DAILY cholecalciferol (vitamin D3) 10 mcg (400 unit) capsule 10 mcg PO DAILY promethazine-DM 6.25-15 mg/5 mL syrup 5 ml PO Q6H Qty: 118 0RF Premarin 0.625 mg/gram cream See Rx Instructions .ROUTE .COMPLEX Qty: 30 2RF Dose Instruction: APPLY 0.625MG VAGINALLY EVERY DAY Rx Instructions: APPLY 0.625MG VAGINALLY EVERY DAY pravastatin 20 mg tablet 20 mg PO DAILY Qty: 90 3RF Rx Instructions: intentional reduction to the 20 mg preparation....each day losartan 50 mg tablet 50 mg PO DAILY Qty: 90 2RF ferrous sulfate 325 mg (65 mg iron) tablet 325 mg PO DAILY Qty: 90 3RF cetirizine [Zyrtec] 10 mg tablet 10 mg PO DAILY PRN (Reason: allergy symptoms) Qty: 30 1RF Rx Instructions: tab or capsule ok prednisone 20 mg tablet 20 mg PO .COMPLEX Qty: 20 0RF Rx Instructions: 4 tabs day 1, decrease by one half tablet daily until gone. cyclobenzaprine 10 mg tablet See Rx Instructions .ROUTE .COMPLEX Qty: 40 2RF Dose Instruction: TAKE 1 TABLET BY MOUTH TWICE DAILY NEEDED FOR MUSCLE SPASM FOR 20 DAYS Rx Instructions: TAKE 1 TABLET BY MOUTH TWICE DAILY NEEDED FOR MUSCLE SPASM FOR 20 DAYS metoprolol tartrate 50 mg tablet See Rx Instructions .ROUTE .COMPLEX Qty: 180 1RF Dose Instruction: TAKE ONE TABLET BY MOUTH TWICE DAILY Rx Instructions: TAKE ONE TABLET BY MOUTH TWICE DAILY omeprazole 20 mg capsule,delayed release(DR/EC) See Rx Instructions .ROUTE .COMPLEX Qty: 90 1RF Dose Instruction: take 1 capsule BY MOUTH EVERY DAY Rx Instructions: take 1 capsule BY MOUTH EVERY DAY tramadol 50 mg tablet 50 mg PO Q8H PRN (Reason: pain) 30 Days Qty: 90 3RF vitamin E acetate 134 mg (200 unit) Capsule 134 mg PO DAILY lidocaine 5 % adhesive patch,medicated 1 patch topical Q24H Qty: 15 0RF Rx Instructions: leave on most painful area for up to 12 hrs Discharge Orders: Discharge ED (Routine); Ordered 08/14/23 Ordered By: Dg Call Referrals: Dewayne Jackson MD [Primary Care Provider] - Discharge Diet: Usual diet Discharge Activity: Resume usual activity Patient Instructions: Medication Monitoring at Home (ED), Opioid Safety, Pain Management Activity Restrictions/Additional Instructions: follow up with your pcp next week Sign Out Sign Out Data: Patient Sign Out occurred on 08/14/23 at 18:13. Patient's care was discussed, and care was transferred from Ben Novoa DO to Dg Call DO. Post-Handoff Eval: Patient's labs were reviewed along with HPI, review of systems and physical exam of Dr. Novoa which I agree. Coding Level of Care Code ED Quantometer Operator for Chg Fwd Documented by User: Dg Call DO 08/14/23 21:21 HPI - Syncope General: Chief Complaint: Fall Stated Complaint: fall, reaction to medicine Time Seen by Provider: 08/14/23 17:37 [facility] ED PFSH: Medical History Spinal stenosis at L4-L5 level Osteoarthritis Allergic rhinitis due to allergen Hypercholesteremia History of depression Hypertension Surgical History History of unilateral oophorectomy History of arthroscopy of left knee History of foot surgery right calcaneus fracture Status post total knee replacement, left Family History Other Hyperlipidemia Hypertension Social History Smoking and tobacco/nicotine status: former use of tobacco/nicotine Alcohol intake: never Substance/Drug Use: never Course Vital Signs: Vital signs: Vital Signs Temperature 98.8 F 08/14/23 17:37 Pulse Rate 60 08/14/23 21:20 Respiratory Rate 18 08/14/23 21:20 Blood Pressure 188/97 08/14/23 21:20 Pulse Oximetry 100 08/14/23 21:20 Oxygen Delivery Me thod Room Air 08/14/23 20:14 MDM - Syncope Medical Decision Making Care signed out to Dr. Call at change of shift. See final notes for diagnosis and disposition. Patient's care was assumed at shift change. I did review all labs and x-ray. Patient's blood pressure did stay high and then did come down some. I did give her metoprolol 2.5 mg in her bed and her evening 50 mg metoprolol dose. She was still having some moderate discomfort so I gave her some Toradol as her kidney function is okay. Patient's symptoms started following steroids I suspect is just likely as thyroid side effects. I discussed with her that this is the likely cause of her jitteriness and how she is feeling. Patient is ready be discharged home. She was stable upon discharge. She should follow with her primary care provider next week for recheck of her symptoms. Lab Data 08/14/23 18:00 08/14/23 18:00 Radiology Impressions Chest X-Ray 08/14/23 17:38 IMPRESSION: No focal consolidation. Laboratory Results WBC 10.23 10^3/uL (3.29-11.43) 08/14/23 18:00 RBC 3.22 10^6/uL (3.85-5.65) L 08/14/23 18:00 Hgb 11.60 g/dL (11.27-16.99) 08/14/23 18:00 Hct 34.0 % (36-47) L 08/14/23 18:00 MCV 105.6 fl (85-98) H 08/14/23 18:00 MCH 36.0 pg (27-33) H 08/14/23 18:00 MCHC 34.1 g/dL (30-55) 08/14/23 18:00 RDW 12.2 % (12.1-15.1) 08/14/23 18:00 Plt Count 299 10^3/cmm (157-399) 08/14/23 18:00 MPV 10.4 fL (7.4-10.4) 08/14/23 18:00 Neut % (Auto) 49.6 % 08/14/23 18:00 Lymph % (Auto) 37.4 % 08/14/23 18:00 [place] % (Auto) 11.6 % 08/14/23 18:00 Eos % (Auto) 0.9 % 08/14/23 18:00 Baso % (Auto) 0.2 % 08/14/23 18:00 Neut # (Auto) 5.07 10^3/uL (1.8-7.7) 08/14/23 18:00 Lymph # (Auto) 3.8 10^3/uL (0.8-4.8) 08/14/23 18:00 [place] # (Auto) 1.2 10^3/uL (0.2-0.9) H 08/14/23 18:00 Eos # (Auto) 0.1 10^3/uL (0.0-0.8) 08/14/23 18:00 Baso # (Auto) 0.0 10^3/uL (0.0-0.1) 08/14/23 18:00 Nucleated RBC % (auto) 0.3 % 08/14/23 18:00 Nucleated RBCs # 0.0 /100WBC 08/14/23 18:00 Sodium 137 mmol/L (136-145) 08/14/23 18:00 Potassium 4.1 mmol/L (3.5-5.1) 08/14/23 18:00 Chloride 99 mmol/L (98-107) 08/14/23 18:00 Carbon Dioxide 28 mmol/L (22-29) 08/14/23 18:00 Anion Gap 14.1 (5-19) 08/14/23 18:00 BUN 22 mg/dL (8-23) 08/14/23 18:00 Creatinine 0.7 mg/dL (0.5-0.9) 08/14/23 18:00 GFR Calculation Not Reportable 08/14/23 18:00 Glucose 107 mg/dL (65-115) 08/14/23 18:00 Calculated Osmolality 288 mOsm/kg (285-295) 08/14/23 18:00 Calcium 9.1 mg/dL (8.5-10.5) 08/14/23 18:00 Total Bilirubin 0.7 mg/dL (0.15-1.2) 08/14/23 18:00 AST 34 U/L (0-32) H 08/14/23 18:00 ALT 25 U/L (0-33) 08/14/23 18:00 Alkaline Phosphatase 75 U/L (35-105) 08/14/23 18:00 Total Protein 8.1 g/dL (6.6-8.7) 08/14/23 18:00 Albumin 4.9 g/dL (3.5-5.2) 08/14/23 18:00 Globulin 3.2 g/dL (1.3-4.6) 08/14/23 18:00 Urine Color Yellow (Yellow) 08/14/23 18:54 Urine Appearance Clear (CLEAR) 08/14/23 18:54 Urine pH 7 (5-7) 08/14/23 18:54 Ur Specific [place] 1.005 (1.005-1.030) 08/14/23 18:54 Urine Protein Neg (Negative) 08/14/23 18:54 Urine Glucose (UA) Norm (Normal) 08/14/23 18:54 Urine Ketones Negative (Negative) 08/14/23 18:54 Urine Blood Neg (Negative) 08/14/23 18:54 Urine Nitrate Negative (Negative) 08/14/23 18:54 Urine Bilirubin Neg (Negative) 08/14/23 18:54 Urine Urobilinogen Neg mg/dL (Negative) 08/14/23 18:54 Ur Leukocyte Esterase Negative (Negative) 08/14/23 18:54 All radiology interpretation(s) finalized by discharge ED provider radiology interpretation(s): No acute findings noted. Final interpretation per radiology report EKG Data EKG 1: I personally reviewed and interpreted this EKG as follows: EKG interpretation date: 08/14/23 EKG interpretation time: 17:49 Interpretation: Sinus rhythm, heart rate 80, ID 121, Q TC 397, nonspecific changes, no acute ST elevation or changes noted Discharge Plan Discharge Patient Disposition: Home Clinical Impression: Steroid side effects Condition: Stable Prescriptions: No Action omega-3 fatty acids [Fish Oil Concentrate] 1,000 mg capsule 1,000 mg PO DAILY ascorbate calcium (vitamin C) 500 mg tablet 500 mg PO DAILY cholecalciferol (vitamin D3) 10 mcg (400 unit) capsule 10 mcg PO DAILY promethazine-DM 6.25-15 mg/5 mL syrup 5 ml PO Q6H Qty: 118 0RF Premarin 0.625 mg/gram cream See Rx Instructions .ROUTE .COMPLEX Qty: 30 2RF Dose Instruction: APPLY 0.625MG VAGINALLY EVERY DAY Rx Instructions: APPLY 0.625MG VAGINALLY EVERY DAY pravastatin 20 mg tablet 20 mg PO DAILY Qty: 90 3RF Rx Instructions: intentional reduction to the 20 mg preparation....each day losartan 50 mg tablet 50 mg PO DAILY Qty: 90 2RF ferrous sulfate 325 mg (65 mg iron) tablet 325 mg PO DAILY Qty: 90 3RF cetirizine [Zyrtec] 10 mg tablet 10 mg PO DAILY PRN (Reason: allergy symptoms) Qty: 30 1RF Rx Instructions: tab or capsule ok prednisone 20 mg tablet 20 mg PO .COMPLEX Qty: 20 0RF Rx Instructions: 4 tabs day 1, decrease by one half tablet daily until gone. cyclobenzaprine 10 mg tablet See Rx Instructions .ROUTE .COMPLEX Qty: 40 2RF Dose Instruction: TAKE 1 TABLET BY MOUTH TWICE DAILY NEEDED FOR MUSCLE SPASM FOR 20 DAYS Rx Instructions: TAKE 1 TABLET BY MOUTH TWICE DAILY NEEDED FOR MUSCLE SPASM FOR 20 DAYS metoprolol tartrate 50 mg tablet See Rx Instructions .ROUTE .COMPLEX Qty: 180 1RF Dose Instruction: TAKE ONE TABLET BY MOUTH TWICE DAILY Rx Instructions: TAKE ONE TABLET BY MOUTH TWICE DAILY omeprazole 20 mg capsule,delayed release(DR/EC) See Rx Instructions .ROUTE .COMPLEX Qty: 90 1RF Dose Instruction: take 1 capsule BY MOUTH EVERY DAY Rx Instructions: take 1 capsule BY MOUTH EVERY DAY tramadol 50 mg tablet 50 mg PO Q8H PRN (Reason: pain) 30 Days Qty: 90 3RF vitamin E acetate 134 mg (200 unit) Capsule 134 mg PO DAILY lidocaine 5 % adhesive patch,medicated 1 patch topical Q24H Qty: 15 0RF Rx Instructions: leave on most painful area for up to 12 hrs Discharge Orders: Discharge ED (Routine); Ordered 08/14/23 Ordered By: Dg Call Referrals: Dewayne Jackson MD [Primary Care Provider] - Discharge Diet: Usual diet Discharge Activity: Resume usual activity Patient Instructions: Medication Monitoring at Home (ED), Opioid Safety, Pain Management Activity Restrictions/Additional Instructions: follow up with your pcp next week Sign Out Sign Out Data: Patient Sign Out occurred on 08/14/23 at 18:13. Patient's care was discussed, and care was transferred from Ben Novoa DO to Dg Call DO. Post-Handoff Eval: Patient's labs were reviewed along with HPI, review of systems and physical exam of Dr. Novoa which I agree. Coding Level of Care Code ED Quantometer Operator for John Mora
--- NOTE | 2023-08-14 17:49 | ECG_ITS ---
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 Measurements Intervals [place] Rate: 80 P: 61 MT: 121 QRS: 70 QRSD: 90 T: 93 QT: 361 QTc: 417 Interpretive Statements SINUS RHYTHM NONSPECIFIC ST & T-WAVE ABNORMALITY Compared to ECG 06/22/2022 15:44:58 No significant changes Electronically Signed On 08-14-2023 21:05:53 CDT by Clive Savage M.D. [email or web address]
[2023-08-14 18:00] VITALS: BP 225/84; PULSE 67; O2SAT 97
[2023-08-14 18:10] LABS: Basophils % 0.2 %; Eosinophils # 0.1 10^3/uL (0.0-0.8); Eosinophils % 0.9 %; Lymphocytes # 3.8 10^3/uL (0.8-4.8); Lymphocytes % 37.4 %; Mean Corpuscular HGB Conc 34.1 g/dL (30-55); Mean Corpuscular Volume 105.6 fl (85-98); Mean Platelet Volume 10.4 fL (7.4-10.4); Monocytes # 1.2 10^3/uL (0.2-0.9); Monocytes % 11.6 %; Neutrophils # 5.07 10^3/uL (1.8-7.7); Neutrophils % 49.6 %; Nucleated Red Blood Cells % 0.3 %; Platelet Count 299 10^3/cmm (157-399); Red Blood Count 3.22 10^6/uL (3.85-5.65); Red Cell Distribution Width 12.2 % (12.1-15.1); White Blood Count 10.23 10^3/uL (3.29-11.43)
[2023-08-14 18:31] LABS: Alanine Aminotransferase 25 U/L (0-33); Albumin Level 4.9 g/dL (3.5-5.2); Alkaline Phosphatase 75 U/L (35-105); Aspartate Amino Transferase 34 U/L (0-32); Blood Urea Nitrogen 22 mg/dL (8-23); Calcium 9.1 mg/dL (8.5-10.5); Carbon Dioxide 28 mmol/L (22-29); Chloride 99 mmol/L (98-107); Globulin 3.2 g/dL (1.3-4.6); Glucose 107 mg/dL (65-115); Osmolality Calculated 288 mOsm/kg (285-295); Sodium 137 mmol/L (136-145); Total Bilirubin 0.7 mg/dL (0.15-1.2); Total Protein 8.1 g/dL (6.6-8.7)
[2023-08-14 18:32] LABS: Anion Gap 14.1 (5-19); Potassium 4.1 mmol/L (3.5-5.1)
[2023-08-14 19:02] LABS: Add Urine Microscopic? NO; Charge for UA Resulting for Rev
[2023-08-14 19:14] LABS: Bilirubin Urine Neg (Negative); Blood Urine Neg (Negative); Glucose Urine UA Norm (Normal); Ketones Urine Negative (Negative); Leukocyte Esterase Urine Negative (Negative); Nitrate Urine Negative (Negative); Protein Urine Neg (Negative); Specific Gravity, Urine 1.005 (1.005-1.030); Urine Appearance Clear (CLEAR); Urine Color Yellow (Yellow); Urobilinogen Urine Neg (Negative); pH Urine 7 (5-7)
[2023-08-14] MEDS: metoprolol tartrate 1 mg/1 mL SDV 5 mL 2.5 MG IVP (19:29)
[2023-08-14] MEDS: metoprolol succinate ER (24 HR) 50 mg Tablet PO (19:38)
[2023-08-14] MEDS: ketorolac 30 mg/mL INJ 15 MG IVP (20:12)
[2023-08-14 20:14] VITALS: BP 194/82; PULSE 65; RESP 18; O2SAT 99
[2023-08-14 21:20] VITALS: BP 188/97; PULSE 60; RESP 18; O2SAT 100
== END 2023-08-14 20:45 | disposition home or self-care (01) ==
PROVIDERS: Family Medicine; Emergency Provider Student in an Organized Health Care Education/Training Program; PCP Family Medicine
DX: R00.2 Palpitations (principal); T38.0X5A Adverse effect of glucocorticoids and synthetic analogues, initial encounter; I10 Essential (primary) hypertension; Z87.891 Personal history of nicotine dependence
CPT/HCPCS: 71045; 80053; 81003; 85025; 93005; 96374; 96375; 99285; J1885; J3490

== ENCOUNTER 2023-08-30 08:57 | Observation (INO) | payer MEDICARE, SELFPAY ==
[2023-08-30] VITALS (9 sets, daily range): BP systolic 131–192; BP diastolic 54–81; PULSE 63–119; RESP 16–18; TEMP 36.4–36.7; O2SAT 95–100; BMI 28.6
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
--- NOTE | 2023-08-30 09:48 | XRR_ITS ---
PROCEDURE INFORMATION: Exam: XR Chest Exam date and time: 08/30/2023 10:11 AM Age: 78 years old Clinical indication: Other: Altered mental status TECHNIQUE: Imaging protocol: Radiologic exam of the chest. Views: 1 view. COMPARISON: CR (CHEST, ) 08/14/2023 6:19 PM FINDINGS: Lungs: A few scattered granulomas are present in both lungs No consolidation. Pleural spaces: Unremarkable. No pleural effusion. No pneumothorax. Heart/Mediastinum: Unremarkable. No cardiomegaly. Bones/joints: Unremarkable. XR/XR chest 1V portable [id number] IMPRESSION: 1. No acute findings. 2. Scattered granulomas both lungs
--- NOTE | 2023-08-30 09:49 | ECG_ITS ---
[facility] Test Date: 2023-08-30 Pat Name: Millicent Fabian Department: Room: Gender: Female Incident Response Specialist: : 1945 Requested By: Ghanshyam Renee Order Number: [id number] Rigoberto MD: Clive Savage M.D. Measurements Intervals [place] Rate: 126 P: 89 [place]: 129 QRS: 170 QRSD: 79 T: 22 QT: 285 QTc: 413 Interpretive Statements SINUS TACHYCARDIA LEFT POSTERIOR FASCICULAR BLOCK [QRS AXIS > 109, INFERIOR Q] INFERIOR MYOCARDIAL INFARCTION , PROBABLY OLD [40+ ms Q WAVE AND/OR ST/T ABNORMALITY IN II/aVF] MODERATE T-WAVE ABNORMALITY, CONSIDER LATERAL ISCHEMIA [-0.1+ mV T-WAVE IN I/aVL/V5/V6] Compared to ECG 08/14/2023 17:49:05 Left posterior fascicular block now present Myocardial infarct finding now present Possible ischemia now present Sinus rhythm no longer present T-wave abnormality still present Electronically Signed On 08-30-2023 15:24:47 CDT by Clive Savage M.D. [id number]
[2023-08-30 10:06] LABS: Add Urine Microscopic? YES; Bilirubin Urine 1+ (Negative); Blood Urine Trace (Negative); Glucose Urine UA Norm (Normal); Ketones Urine 1+ (Negative); Leukocyte Esterase Urine Trace (Negative); Nitrate Urine Negative (Negative); Protein Urine 1+ (Negative); Urine Appearance Clear (CLEAR); Urine Color Dark Yellow (Yellow); Urobilinogen Urine 1 mg/dL (Negative); pH Urine 5 (5-7)
[2023-08-30 10:07] LABS: Add Urine Culture? No; Amorphous Sediment Urine 1+ /hpf; Amphetamines Screen Urine Negative (Negative); Bacteria Urine 1+ /hpf; Barbiturates Screen Urine Negative (Negative); Benzodiazepines Screen Urine Negative (Negative); Cocaine Screen Urine Negative (Negative); Opiate Screen Urine Negative (Negative); PCP Screen Urine Negative (Negative); RBC Urine RARE /hpf (0-2); Squamous Epithelial Cell Urine 0-4 /hpf (0-5); THC Screen Urine Negative (Negative)
[2023-08-30 10:17] LABS: Basophils # 0.1 10^3/uL (0.0-0.1); Basophils % 0.8 %; Hematocrit 30.1 % (36-47); Lymphocytes # 1.7 10^3/uL (0.8-4.8); Lymphocytes % 14.1 %; Mean Corpuscular HGB Conc 34.2 g/dL (30-55); Mean Corpuscular Hemoglobin 36.8 pg (27-33); Mean Corpuscular Volume 107.5 fl (85-98); Mean Platelet Volume 9.8 fL (7.4-10.4); Monocytes # 1.1 10^3/uL (0.2-0.9); Monocytes % 8.8 %; Neutrophils # 9.35 10^3/uL (1.8-7.7); Neutrophils % 75.8 %; Nucleated Red Blood Cells % 0 %; Platelet Count 298 10^3/cmm (157-399); Red Cell Distribution Width 12.4 % (12.1-15.1); White Blood Count 12.34 10^3/uL (3.29-11.43)
[2023-08-30 10:49] LABS: Alanine Aminotransferase 36 U/L (0-33); Albumin Level 4.3 g/dL (3.5-5.2); Alkaline Phosphatase 68 U/L (35-105); Anion Gap 16.2 (5-19); Aspartate Amino Transferase 49 U/L (0-32); Blood Urea Nitrogen 11 mg/dL (8-23); Calcium 9.3 mg/dL (8.5-10.5); Carbon Dioxide 24 mmol/L (22-29); Chloride 96 mmol/L (98-107); Glucose 122 mg/dL (65-115); Osmolality Calculated 275 mOsm/kg (285-295); Potassium 4.2 mmol/L (3.5-5.1); Sodium 132 mmol/L (136-145); Thyroid Stimulating Hormone 1.35 uIU/mL (0.27-4.20); Total Bilirubin 1.2 mg/dL (0.15-1.2); Total Protein 7.3 g/dL (6.6-8.7)
[2023-08-30 11:01] LABS: Acetaminophen < 5.0 ug/mL (10-30); Alcohol Level < 10 mg/dL (0-10); Salicylate < 0.3 mg/dL (3-10)
[2023-08-30] MEDS: LORazepam 1 mg Tablet PO (12:55)
[2023-08-30] MEDS: ciprofloxacin 500 mg Tablet PO (12:56)
--- NOTE | 2023-08-30 13:45 | CTR_ITS ---
PROCEDURE INFORMATION: Exam: CT Head Without Contrast Exam date and time: 08/30/2023 2:41 PM Age: 78 years old Clinical indication: Altered mental status/memory loss; Additional info: AMS TECHNIQUE: Imaging protocol: Computed tomography of the head without contrast. Radiation optimization: All CT scans at this facility use at least one of these dose optimization techniques: automated exposure control; mA and/or kV adjustment per patient size (includes targeted exams where dose is matched to clinical indication); or iterative reconstruction. COMPARISON: CT head wo con* [id number] 06/22/2022 2:32 PM RADIATION DOSE METRICS: Total DLP (mGy-cm): 974.98 FINDINGS: Brain: Normal. No hemorrhage. Unremarkable white matter. No mass effect. Cerebral ventricles: No ventriculomegaly. Paranasal sinuses: Visualized sinuses are unremarkable. There is an air-fluid level present in the left sphenoid sinus. The posterior left ethmoid sinus is completely opacified. These findings correspond to mild chronic sinusitis Mastoid air cells: Visualized mastoid air cells are well aerated. Bones: Unremarkable. No acute fracture. Soft tissues: Unremarkable. CT/CT head wo con* [id number] IMPRESSION: No acute intracranial abnormality. Chronic sinusitis
--- NOTE | 2023-08-30 13:47 | ECG_ITS ---
[facility] Test Date: 2023-08-30 Pat Name: Millicent Fabian Department: Room: Gender: Female Reconciliation Analyst: : 1945 Requested By: Giuliano Brooks Order Number: [id number] Rigoberto MD: Clive Savage M.D. Measurements Intervals [place] Rate: 111 P: 79 [place]: 137 QRS: 11 QRSD: 76 T: 107 QT: 321 QTc: 437 Interpretive Statements SINUS TACHYCARDIA WITH OCCASIONAL SUPRAVENTRICULAR PREMATURE COMPLEXES ST DEVIATION AND MODERATE T-WAVE ABNORMALITY, CONSIDER ANTEROLATERAL ISCHEMIA [-0.1+ mV T-WAVE IN V3-V6] Compared to ECG 08/30/2023 10:24:52 Left posterior fascicular block no longer present Myocardial infarct finding no longer present T-wave abnormality still present Possible ischemia still present Electronically Signed On 08-30-2023 15:24:25 CDT by Clive Savage M.D. [id number]
[2023-08-30 14:20] LABS: Erythrocyte Sedimentation Rate 4 mm/hr (0-15)
[2023-08-30 14:29] LABS: Lactic Sepsis W/Reflex 1.4 mmol/L (0.5-2.2)
[2023-08-30 14:31] LABS: Hepatitis A Antibody IgM Non-Reactive (Nonreactive); Hepatitis B Core IgM Non-Reactive (Nonreactive); Hepatitis B Surface Antigen Non-Reactive (Nonreactive); Hepatitis C Virus Antibody Non-Reactive (Nonreactive)
[2023-08-30 14:35] LABS: Procalcitonin 0.08 ng/mL (0-0.5); Vitamin B12 607 pg/mL (232-1245)
[2023-08-30 14:36] LABS: HIV 1 & 2 Antibody Non-Reactive (Non-Reactiv); HIV 1 & 2 Antigen Non-Reactive (Non-Reactiv)
[2023-08-30 14:39] LABS: Folate Level 11.5 ng/mL (4.8-37.3)
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
--- NOTE | 2023-08-30 15:32 | PC.NURSE ---
PATIENT ALLOWED ME TO GET VITALS ON HER AT THIS TIME. PATIENT REFUSED VITALS PRIOR TO NOW.
[2023-08-30 15:41] LABS: NT Pro B Type Natriuretic Pept 2938 pg/mL (0-450)
[2023-08-30 15:58] LABS: Troponin(5th) Baseline 76 ng/L (0-10)
[2023-08-30 16:02] LABS: Ammonia 35 umol/L (11-51)
--- NOTE | 2023-08-30 16:28 | ECG_ITS ---
[facility] Test Date: 2023-08-30 Pat Name: Millicent Fabian Department: Room: 263 Gender: Female Pants Maker: : 1945 Requested By: Giuliano Brooks Order Number: [id number] Rigoberto MD: Clive Savage M.D. Measurements Intervals [place] Rate: 115 P: 75 [place]: 131 QRS: 6 QRSD: 76 T: 60 QT: 324 QTc: 449 Interpretive Statements SINUS TACHYCARDIA WITH OCCASIONAL SUPRAVENTRICULAR PREMATURE COMPLEXES NONSPECIFIC ST & T-WAVE ABNORMALITY Compared to ECG 08/30/2023 14:38:29 Possible ischemia no longer present T-wave abnormality still present Electronically Signed On 08-30-2023 21:40:27 CDT by Clive Savage M.D. [id number]
[2023-08-30 16:43] LABS: Chol HDL Ratio 2.55 mg/dL (0.0-4.40); Cholesterol 181 mg/dL (0-200); HDL Cholesterol 71 mg/dL (60-100); LDL Cholesterol Calculated 99 mg/dL (50-129); LDL HDL Ratio 1.39 RATIO (0.00-3.22); Triglycerides 56 mg/dL (0-150)
[2023-08-30] MEDS: enoxaparin 40 mg/0.4 mL Syringe SUBCUT (16:50)
[2023-08-30] MEDS: pantoprazole 40 mg SDV IVP (16:50)
[2023-08-30] MEDS: cefTRIAXone 1,000 MG in sodium chloride 0.9% (plus) 50 ML 100 MG IV (16:50)
[2023-08-30 16:52] LABS: Estmated Average Glucose 103; Hemoglobin A1C 5.2 % (4.0-6.0)
[2023-08-30] MEDS: sodium chloride 0.9% 1,000 ML 75 ML IV (17:09)
[2023-08-30 18:44] LABS: Troponin 5 2HR 63.06 ng/L (0-10)
[2023-08-30 18:49] LABS: Troponin 5 2HR Delta -12.94 ABS# (0-10)
--- NOTE | 2023-08-30 19:47 | ECG_ITS ---
[facility] Test Date: 2023-08-30 Pat Name: Millicent Fabian Department: Room: 252 Gender: Female Behavior Specialist: : 1945 Requested By: Giuliano Brooks Order Number: [id number] Rigoberto MD: Clive Savage M.D. Measurements Intervals [place] Rate: 114 P: 68 [place]: 133 QRS: 15 QRSD: 74 T: 110 QT: 282 QTc: 389 Interpretive Statements SINUS TACHYCARDIA WITH OCCASIONAL SUPRAVENTRICULAR PREMATURE COMPLEXES NONSPECIFIC ST & T-WAVE ABNORMALITY Compared to ECG 08/30/2023 16:28:46 No significant changes Electronically Signed On 08-30-2023 21:40:11 CDT by Clive Savage M.D. [id number]
[2023-08-30] MEDS: cyclobenzaprine 10 mg Tablet PO (20:11)
[2023-08-30] MEDS: atorvastatin 40 mg Tablet PO (20:12)
[2023-08-30] MEDS: metoprolol tartrate 50 mg Tablet PO (20:12)
[2023-08-30 22:40] LABS: Troponin 5 6HR 70.03 ng/L (0-10); Troponin 5 6HR Delta -5.97 ng/L (0-12)
[2023-08-30] MEDS: TRAMadol 50 mg Tablet PO (23:45)
[2023-08-30] MEDS: cyclobenzaprine 10 mg Tablet 5 MG PO (23:47)
[2023-08-31] VITALS: BP 136/73; PULSE 87; RESP 18; TEMP 36.4; O2SAT 97
--- NOTE | 2023-08-31 02:12 | PC.NURSE ---
patients family inquiring about Ambien that is prescribed prn. Daughter was requesting this nurse to give it to the patient; when asking patient if she had taken it before or she wanted to try it to help her get to sleep she was adamant in saying that she did not want it. Daughters still insisting that I give it to her. Educated family on respecting patients wishes and letting her decide for herself.
[2023-08-31 04:00] VITALS: BP 160/78; PULSE 84; RESP 17; TEMP 36.8; O2SAT 98
[2023-08-31] MEDS: sodium chloride 0.9% 1,000 ML 75 ML IV (05:42)
[2023-08-31 07:54] VITALS: BP 145/82; PULSE 87; RESP 16; TEMP 36.8; O2SAT 98
[2023-08-31 08:56] VITALS: BP 145/82
[2023-08-31] MEDS: metoprolol tartrate 50 mg Tablet PO (08:56)
[2023-08-31] MEDS: losartan 50 mg Tablet PO (08:56)
--- NOTE | 2023-08-31 09:09 | PC.CHAP ---
Pastoral Care Encounter/Spiritual Assessment Type of Contact [] Declined linecasting machine keyboard operator visit [] Patient/Family/Request visit [] Outpatient visit [] Follow-up visit [] Physician referral [] Code/Alert [x] Routine visit [] Staff referral [] Actively dying [] Patient sleeping [] Family support [] [] Out of room [] Palliative care [] [] Receiving care in room [] Pre-surgical visit [] Trauma [] Long length of stay [] ICU visit [] Other: Relational/Emotional Strength [] Patient feels connected with others/family/visitors/staff [] Distress [] Loneliness/isolation [] Abandonment Spirituality of Patient [] Person of Nina [] Attends Orthodox of their Nina [] Believes in Prayer [] Reads Bible or Druze materials [] There are Spiritual issues to be addressed Education And Training Manager Interventions [x] Prayer [] Active listening [] Non-anxious presence [] Spiritual/emotional support [] Crisis/trauma care [] Spiritual counseling [] Bereavement support [] Provided bereavement packet [] Provided Bible/devotional materials [] Provided toy/stuffed animal, coloring book to patient or family member [] Provided Communion [] Anointing/[place] [] Salvation [] Completed spiritual assessment [] Other: Impact on Illness or Injury [] Angry [] Fearful [] Anxious [] Often cries [] Exhaustion [] Unable to work [] Unable to attend christian [] Unable to walk/stand [] Unable to read [] Unable to drive [] Unable to eat/drink [] Unable to sleep [] Unable to be with family [] Patient intubated [] Other: Summary do not disturb Time spent with patient
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
[2023-08-31 11:35] VITALS: BP 186/80; PULSE 77; RESP 18; TEMP 36.8; O2SAT 97
[2023-08-31 12:29] VITALS: BP 186/80; PULSE 77; RESP 18; TEMP 36.8; O2SAT 97
== END 2023-08-31 12:30 | disposition home or self-care (01) ==
LOC: ER 14:17 → MEDSURG 19:19
PROVIDERS: Admitting Provider Family Medicine; Emergency Provider Emergency Medicine; PCP Family Medicine; Visit Provider Family Medicine
DX: R41.82 Altered mental status, unspecified (principal); I10 Essential (primary) hypertension; N30.01 Acute cystitis with hematuria; F32.A Depression, unspecified; E78.00 Pure hypercholesterolemia, unspecified; Z87.891 Personal history of nicotine dependence
CPT/HCPCS: 36415; 70450; 71045; 80053; 80061; 80074; 80306; 80307; 81001; 82140; 82607; 82746; 83036; 83605; 83880; 84145; 84443; 84484; 85025; 85651; 86140; 87040; 87806; 93005; 96361; 96372; 96374; 97165; 99285; C9113; G0378; J0696; J1650; J7030

== ENCOUNTER 2023-09-01 07:47 | Emergency (ER) | payer MEDICARE, SELFPAY ==
[2023-09-01] VITALS (7 sets, daily range): BP systolic 91–189; BP diastolic 58–78; PULSE 78–93; TEMP 36.9; O2SAT 94–100
--- NOTE | 2023-09-01 08:12 | CT_ITS ---
WS: [id number] CT HEAD NONCONTRAST HISTORY: AMS TECHNIQUE: Contiguous axial imaging performed through the brain in 2.5 mm imaging. Bone and soft tiss ue windows. Sagittal and coronal reformats reviewed. All CT scans at [facility] use at least one of these dose optimization techniques: automated exposure control; mA and/or kV adjustment per pa tient size (includes targeted exams where dose is matched to clinical indication); or iterative recon struction. DLP: 983.68 mGy.cm COMPARISON: 08/30/2023 No acute intracranial hemorrhage, midline shift or mass effect. Mild atrophy and small vessel ischemic disease. Small lacunar infarct external capsule on the LEFT. Ventricles: Normal size with no hydrocephalus. No inferior displacement of the cerebellar tonsils. Clivus and pituitary negative. Moderate atheroscl erotic plaque in the intracranial carotid arteries and the vertebral arteries. Paranasal sinuses: Mucoperiosteal thickening or retention cyst in the posterior LEFT ethmoid air cell s. There is a small air-fluid level in the sphenoid sinus. Mastoid air cells: Well pneumatized. Calvarium and scalp: Skull is intact with no soft tissue edema or swelling. CT/CT head wo con* [id number] IMPRESSION: 1. No acute intracranial hemorrhage or edema. 2. Mild atrophy and mild small vessel ischemic disease. Remote lacunar infarct LEFT external capsule.
--- NOTE | 2023-09-01 08:12 | XRR_ITS ---
PROCEDURE INFORMATION: Exam: XR Chest Exam date and time: 09/01/2023 8:23 AM Age: 78 years old Clinical indication: Cough and dyspnea; Additional info: Dyspnea/cough TECHNIQUE: Imaging protocol: Radiologic exam of the chest. Views: 1 view. COMPARISON: CR (CHEST, ) 08/30/2023 10:11 AM FINDINGS: Lungs: Patchy opacities in the right lung base. Left lung is clear. Pleural spaces: No sizable pleural effusion or pneumothorax. Heart/Mediastinum: No cardiomegaly. Bones/joints: Unremarkable. XR/XR chest 1V portable [id number] IMPRESSION: Patchy opacities in the right lung base may reflect infection or aspiration.
--- NOTE | 2023-09-01 08:14 | ED_ITS ---
HPI - Altered Mental Status 2 General: Chief Complaint: Altered Mental Status Stated Complaint: AMS Time Seen by Provider: 09/01/23 08:02 Source: patient Mode of arrival: other (Law enforcement) History of Present Illness: 78-year-old female presents emergency ro om accompanied by law enforcement she is in handcuffs. Evidently they had a slow changes to the patient this way where she was evading the police ultimately they end up using a spike strip and pinning her vehicle with the use of other patrol cars before breaking the glass to get her out of the vehicle. She was seen 2 days ago for altered mental status. At that time she had not pointed a BB gun at neighbors as they were moving things out of her house. Long course of brought her and she was found to have a bladder infection which she was treated and she was discharged yesterday. At the time of discharge family was at the bedside with the hospitalist a reevaluate the patient family felt she was back at her baseline and she was discharged home on ciprofloxacin. Initially seen the patient she is in because these were removed she does have some skin tears. No family at the bedside she answers questions but is having some delusions. She when asked about skin tears on her arms she tells me to asked the Mex[place]. complaint: altered mental status and confusion Onset (ago): day(s) Review of Systems 2 Const: Denies: fever(s) or chills Card: Denies: chest pain Resp: Denies: dyspnea GI: Denies: abdominal pain : Denies: dysuria, urinary frequency or urinary urgency Musc: Denies: neck pain or back pain Skin/Breast: Denies: rash PFSH ED 2 PFSH: Medical History Spinal stenosis at L4-L5 level Osteoarthritis Allergic rhinitis due to allergen Hypercholesteremia History of depression Hypertension Surgical History History of unilateral oophorectomy History of arthroscopy of left knee History of foot surgery right calcaneus fracture Status post total knee replacement, left Family History Other Hyperlipidemia Hypertension Social History Smoking and tobacco/nicotine status: former use of tobacco/nicotine Alcohol intake: never Substance/Drug Use: never Physical Exam 2 Const: GENERAL APPEARANCE: comfortable ORIENTATION/CONSCIOUSNESS: Yes awake HENMT: COMMON NORMALS: normocephalic, atraumatic and hearing grossly normal bilaterally HEAD & SCALP: normocephalic and atraumatic Resp: COMMON NORMALS: normal respiratory effort, No retractions, No use of accessory muscles and clear to auscultation bilaterally AUSCULTATION: clear to auscultation bilaterally Cardio: COMMON NORMALS: regular rate, regular rhythm and No murmurs present (Cardio) RATE: regular rate RHYTHM: regular rhythm GI: COMMON NORMALS: Soft to palpation and No hepatosplenomegaly present A USCULTATION: Yes normoactive bowel sounds PALPATION: Yes Soft to palpation, No Tenderness to palpation present (GI), No Guarding due to palpation present (GI) and Yes No hepatosplenomegaly present Extremity: COMMON NORMALS: normal to inspection, capillary refill normal, no clubbing, cyanosis or edema, no calf tenderness and no pedal edema Skin: COMMON NORMALS: no rashes or lesions noted GENERAL SKIN EXAM: no rashes or lesions noted Course 2 Vital Signs: Vital signs: Vital Signs Temperature 98.5 F 09/01/23 07:57 Pulse Rate 115 H 09/02/23 11:06 Respiratory Rate 16 09/02/23 05:45 Blood Pressure 189/76 09/02/23 11:06 Pulse Oximetry 96 09/02/23 11:06 Oxygen Delivery Me thod Room Air 09/02/23 11:06 MDM - Altered Mental Status Medical Decision Making Patient does have some abnormal labs. There is slight elevation in liver enzymes this is likely from the pravastatin. CPK was elevated initially, I believe this is due to the pravastatin and the fact the bait patient has been awake continuously for the last 3 days. A repeat CPK after IV fluids is decreasing. Remainder the labs are generally unremarkable there is no kidney issues. Opponent is elevated but his troponin is trending negative there is no sign of acute coronary syndrome. Patient has not been significantly combative here in the emergency room. She definitely would benefit from evaluation in geriatric psychiatry given her study and rather acute cognitive decline over the last 2 weeks. Because of concern for ongoing medical issues we asked the hospitalist to do a medical medicine consult on her. See Dr. Lee's note he concurs with her assessment there is no acute medical problems and absent her psychiatric issues she would likely be discharged on these other issues to be followed up as an outpatient we will hold her pravastatin. Chest x-ray suggested questionable changes in the right lung clinically there is no hypoxia no evidence of pneumonia. No acute medical process noted. There is no sign of UTI at this time. Think the Cipro could be stopped as it may agitate her. Will begin looking for appropriate psychiatric placement. 09/02/20233 Patient accepted at [facility] in [place] patient has remained stable labs repeated. She is been started on risperidone we did have to hold her risperidone give her Zyprexa today which did help her overall condition. She has been placed on a 96-hour hold. Medical Records I reviewed the patient's medical records. Lab Data I reviewed the patient's lab results. 09/02/23 14:26 09/02/23 14:26 Radiology Impressions Chest X-Ray 09/01/23 08:12 IMPRESSION: Patchy opacities in the right lung base may reflect infection or aspiration. Head CT 09/01/23 08:12 IMPRESSION: 1. No acute intracranial hemorrhage or edema. 2. Mild atrophy and mild small vessel ischemic disease. Remote lacunar infarct LEFT external capsule. Abdomen/Pelvis CT 09/01/23 15:16 IMPRESSION: 1. Extensive atherosclerotic changes in the visualized arteries. Greater than 90% stenosis of the proximal right common iliac artery. 2. Trace right pleural effusion. 3. Sigmoid diverticulosis. No evidence for diverticulitis. 4. Findings suspicious for mesenteric panniculitis. 5. Right diaphragmatic and pleural calcifications. Differential diagnosis includes asbestos related pleural disease versus sequela of prior trauma or infection. 6. Incidental/nonacute findings are listed in the report. Laboratory Results WBC 10.64 10^3/uL (3.29-11.43) 09/02/23 14: RBC 2.85 10^6/uL (3.85-5.65) L 09/02/23 14:26 Hgb 10.40 g/dL (11.27-16.99) L 09/02/23 14:26 Hct 31.0 % (36-47) L 09/02/23 14: MCV 108.8 fl (85-98) H 09/02/23 14:26 MCH 36.5 pg (27-33) H 09/02/23 14: MCHC 33.5 g/dL (30-55) 09/02/23 14: RDW 12.6 % (12.1-15.1) 09/02/23 14:26 Plt Count 305 10^3/cmm (157-399) 09/02/23 14: MPV 10.1 fL (7.4-10.4) 09/02/23 14:26 Neut % (Auto) 62.7 % 09/02/23 14:26 Lymph % (Auto) 23.8 % 09/02/23 14:26 [place] % (Auto) 12.0 % 09/02/23 14: Eos % (Auto) 0.4 % 09/02/23 14: Baso % (Auto) 0.8 % 09/02/23 14: Neut # (Auto) 6.68 10^3/uL (1.8-7.7) 09/02/23 14:26 Lymph # (Auto) 2.5 10^3/uL (0.8-4.8) 09/02/23 14:26 [place] # (Auto) 1.3 10^3/uL (0.2-0.9) H 09/02/23 14:26 Eos # (Auto) 0.0 10^3/uL (0.0-0.8) 09/02/23 14: Baso # (Auto) 0.1 10^3/uL (0.0-0.1) 09/02/23 14: Nucleated RBC % (auto) 0.3 % 09/02/23 14: Nucleated RBCs # 0.0 /100WBC 09/02/23 14:26 Sodium 138 mmol/L (136-145) 09/02/23 14:26 Potassium 4.1 mmol/L (3.5-5.1) 09/02/23 14: Chloride 99 mmol/L (98-107) 09/02/23 14:26 Carbon Dioxide 25 mmol/L (22-29) 09/02/23 14:26 Anion Gap 18.1 (5-19) 09/02/23 14:26 BUN 15 mg/dL (8-23) 09/02/23 14:26 Creatinine 0.7 mg/dL (0.5-0.9) 09/02/23 14:26 GFR Calculation Not Reportable 09/02/23 14:26 Glucose 111 mg/dL (65-115) 09/02/23 14:26 Calculated Osmolality 288 mOsm/kg (285-295) 09/02/23 14:26 Lactic Acid 1.2 mmol/L (0.5-2.2) 09/01/23 08:36 Calcium 9.1 mg/dL (8.5-10.5) 09/02/23 14:26 Total Bilirubin 0.8 mg/dL (0.15-1.2) 09/02/23 14:26 AST 66 U/L (0-32) H 09/02/23 14:26 ALT 62 U/L (0-33) H 09/02/23 14:26 Alkaline Phosphatase 73 U/L (35-105) 09/02/23 14:26 Creatine Kinase 635 U/L (26-192) H* 09/02/23 14:26 Troponin T 5th Gen ng/L 75 ng/L (0-10) H 09/02/23 14:26 Troponin T Baseline 58 ng/L (0-10) H 09/01/23 08:36 Troponin T 120 Minute 57.04 ng/L (0-10) H 09/01/23 12:39 Delta Troponin T -0.96 ABS# (0-10) L 09/01/23 12:39 Troponin T Hi Sens 6Hr 51.89 ng/L (0-10) H 09/01/23 14:46 Troponin T Hi Sens 6Hr Delta -6.11 ng/L (0-12) L 09/01/23 14:46 Total Protein 7.1 g/dL (6.6-8.7) 09/02/23 14:26 Albumin 4.5 g/dL (3.5-5.2) 09/02/23 14:26 Globulin 2.6 g/dL (1.3-4.6) 09/02/23 14:26 Lipase 21 U/L (13-60) 09/01/23 08:36 TSH 1.12 uIU/mL (0.27-4.20) 09/02/23 14:26 Urine Color Yellow (Yellow) 09/01/23 09:18 Urine Appearance Clear (CLEAR) 09/01/23 09:18 Urine pH 7 (5-7) 09/01/23 09:18 Ur Specific [place] 1.015 (1.005-1.030) 09/01/23 09:18 Urine Protein Neg (Negative) 09/01/23 09:18 Urine Glucose (UA) Norm (Normal) 09/01/23 09:18 Urine Ketones Negative (Negative) 09/01/23 09:18 Urine Blood Neg (Negative) 09/01/23 09:18 Urine Nitrate Negative (Negative) 09/01/23 09:18 Urine Bilirubin Neg (Negative) 09/01/23 09:18 Urine Urobilinogen Norm mg/dL (Negative) 09/01/23 09:18 Ur Leukocyte Esterase Negative (Negative) 09/01/23 09:18 Urine RBC None /hpf (0-2) 09/01/23 09:18 Urine WBC None /hpf (0-5) 09/01/23 09:18 Ur Squamous Epith Cells None /hpf (0-5) 09/01/23 09:18 Amorphous Sediment Not Reportable 09/01/23 09:18 Urine Bacteria None /hpf (NONE) 09/01/23 09:18 Salicylates < 0.3 mg/dL (3-10) L 09/01/23 08:36 Urine Opiates Screen Negative ng/mL (Negative) 09/01/23 09:18 Acetaminophen < 5.0 ug/mL (10-30) L 09/01/23 08:36 Ur Barbiturates Screen Negative ng/mL (Negative) 09/01/23 09:18 Ur Phencyclidine Scrn Negative ng/mL (Negative) 09/01/23 09:18 Ur Amphetamines Screen Negative ng/mL (Negative) 09/01/23 09:18 U Benzodiazepines Scrn Positive ng/mL (Negative) H 09/01/23 09:18 Urine Cocaine Screen Negative ng/mL (Negative) 09/01/23 09:18 U Marijuana (THC) Screen Negative ng/mL (Negative) 09/01/23 09:18 RPR Nonreactive (Nonreactive) 09/01/23 08:26 RPR Titer/FTA Cancelled 09/01/23 12:39 RPR w/Rflx to Titer Cancelled 09/01/23 12:39 Influenza Type A Ag negative (Negative) 09/02/23 14:17 Influenza Type B Ag negative (Negative) 09/02/23 14:17 RSV Antigen Negative (Negative) 09/01/23 09:22 SARS-CoV-2 Ag (Rapid) negative (Negative) 09/01/23 09:22 All radiology interpretation(s) finalized by discharge Discharge Plan Discharge Patient Disposition: Xfer Psychiatric Hosp Clinical Impression: Delusions, Acute psychosis Condition: Stable Referrals: Dewayne Jackson MD [Primary Care Provider] - Patient Instructions: Altered Mental Status (ED) Coding Level of Care Code ED [employer] for John Mora
--- NOTE | 2023-09-01 08:14 | ECG_ITS ---
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 Measurements Intervals [place] Rate: 87 P: 19 OR: 122 QRS: 52 QRSD: 81 T: -7 QT: 370 QTc: 446 Interpretive Statements SINUS RHYTHM WITH SINUS ARRHYTHMIA NONSPECIFIC ST & T-WAVE ABNORMALITY Compared to ECG 08/30/2023 20:13:27 Sinus tachycardia no longer present T-wave abnormality still present Electronically Signed On 09-04-2023 13:22:01 CDT by Wali Rodney M.D. [id number]
--- NOTE | 2023-09-01 08:50 | PC.PHAR ---
PTS' FAMILY WANTS CASE MANAGEMENT HELP, PLEASE. MEDICATIONS VERIFIED BY FAMILY AND PHARMACY. CHART SHOWS [facility] IS [facility]REFERRED BUT THEY DO NOT FILL FOR HER. SHE GETS HER MEDS AT [facility].
[2023-09-01 08:56] LABS: Basophils # 0.1 10^3/uL (0.0-0.1); Basophils % 1.1 %; Eosinophils # 0.1 10^3/uL (0.0-0.8); Eosinophils % 0.9 %; Hematocrit 30.2 % (36-47); Lymphocytes # 1.8 10^3/uL (0.8-4.8); Lymphocytes % 22.9 %; Mean Corpuscular HGB Conc 33.4 g/dL (30-55); Mean Corpuscular Hemoglobin 36.2 pg (27-33); Mean Corpuscular Volume 108.2 fl (85-98); Mean Platelet Volume 9.9 fL (7.4-10.4); Monocytes # 0.9 10^3/uL (0.2-0.9); Monocytes % 10.9 %; Neutrophils # 5.13 10^3/uL (1.8-7.7); Neutrophils % 63.8 %; Nucleated Red Blood Cells % 0.2 %; Platelet Count 287 10^3/cmm (157-399); Red Blood Count 2.79 10^6/uL (3.85-5.65); Red Cell Distribution Width 12.6 % (12.1-15.1); White Blood Count 8.04 10^3/uL (3.29-11.43)
[2023-09-01 09:16] LABS: Alanine Aminotransferase 51 U/L (0-33); Albumin Level 4.4 g/dL (3.5-5.2); Alkaline Phosphatase 72 U/L (35-105); Anion Gap 17.2 (5-19); Aspartate Amino Transferase 70 U/L (0-32); Blood Urea Nitrogen 10 mg/dL (8-23); Carbon Dioxide 23 mmol/L (22-29); Chloride 103 mmol/L (98-107); Creatinine Clr Calc Pharmacy 51.1324; Globulin 2.5 g/dL (1.3-4.6); Glucose 114 mg/dL (65-115); Lipase 21 U/L (13-60); Osmolality Calculated 288 mOsm/kg (285-295); Potassium 4.2 mmol/L (3.5-5.1); Sodium 139 mmol/L (136-145); Total Bilirubin 0.7 mg/dL (0.15-1.2); Total Protein 6.9 g/dL (6.6-8.7)
[2023-09-01 09:17] LABS: Lactic Sepsis W/Reflex 1.2 mmol/L (0.5-2.2); Troponin(5th) Baseline 58 ng/L (0-10)
[2023-09-01 09:27] LABS: Creatine Phosphokinase 633 U/L (26-192)
[2023-09-01 09:38] LABS: Add Urine Microscopic? NO
[2023-09-01 09:42] LABS: Bilirubin Urine Neg (Negative); Blood Urine Neg (Negative); Glucose Urine UA Norm (Normal); Ketones Urine Negative (Negative); Leukocyte Esterase Urine Negative (Negative); Nitrate Urine Negative (Negative); Protein Urine Neg (Negative); Specific Gravity, Urine 1.015 (1.005-1.030); Urine Appearance Clear (CLEAR); Urine Color Yellow (Yellow); Urobilinogen Urine Norm (Negative); pH Urine 7 (5-7)
[2023-09-01 09:49] LABS: Amphetamines Screen Urine Negative (Negative); Barbiturates Screen Urine Negative (Negative); Benzodiazepines Screen Urine Positive (Negative); Cocaine Screen Urine Negative (Negative); Opiate Screen Urine Negative (Negative); PCP Screen Urine Negative (Negative); THC Screen Urine Negative (Negative)
[2023-09-01 10:01] LABS: SARS Covid-2 Antigen negative (Negative)
[2023-09-01 10:11] LABS: RSV Transfer Patient (ED) Negative (Negative)
--- NOTE | 2023-09-01 10:14 | ECG_ITS ---
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 Measurements Intervals [place] Rate: 77 P: 50 SD: 119 QRS: 27 QRSD: 78 T: 67 QT: 393 QTc: 446 Interpretive Statements SINUS RHYTHM WITH MARKED SINUS ARRHYTHMIA WITH SHORT SD INTERVAL NONSPECIFIC T-WAVE ABNORMALITY Compared to ECG 09/01/2023 08:35:50 Short SD interval now present T-wave abnormality still present Electronically Signed On 09-04-2023 13:49:19 CDT by Wali Rodney M.D. [id number]
--- NOTE | 2023-09-01 10:25 | PC.NURSE ---
Per Verbal order by Dr. Novoa, Lorazapam can be given IM instead of IVP. The original order was cancelled and a verbal order was ordered instead.
[2023-09-01] MEDS: ziprasidone 20 mg/mL SDV 10 MG IM (11:04)
[2023-09-01] MEDS: LORazepam 2 mg/mL INJ 10 mL MDV 1 MG IM (11:04)
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
[2023-09-01 13:07] LABS: Acetaminophen < 5.0 ug/mL (10-30); Salicylate < 0.3 mg/dL (3-10)
[2023-09-01 13:12] LABS: Troponin 5 2HR 57.04 ng/L (0-10)
[2023-09-01 13:13] LABS: Troponin 5 2HR Delta -0.96 ABS# (0-10)
[2023-09-01 13:17] LABS: Rapid Plasma Reagin Syphilis Nonreactive (Nonreactive)
--- NOTE | 2023-09-01 14:14 | ECG_ITS ---
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 Measurements Intervals [place] Rate: 74 P: 60 NH: 125 QRS: 31 QRSD: 88 T: 70 QT: 404 QTc: 449 Interpretive Statements SINUS RHYTHM WITH OCCASIONAL SUPRAVENTRICULAR PREMATURE COMPLEXES NONSPECIFIC ST & T-WAVE ABNORMALITY Compared to ECG 09/01/2023 13:18:55 Sinus arrhythmia no longer present Short NH interval no longer present T-wave abnormality still present Electronically Signed On 09-04-2023 13:51:46 CDT by Wali Rodney M.D. [email or web address] point mature [facility] unitSt[facility]play[facility].[place]/store/[id number] f
[2023-09-01] MEDS: water for injection-sterile 10 ML 1.19999999999999996 ML (14:20)
--- NOTE | 2023-09-01 14:41 | DCPLANNER ---
Addendum entered by Kortney Kolb 09/02/23 08:49: [facility] will not take - Patient to confused to sign in herself - Per [facility] had no beds -1323 08/31, Rosie called today denied due to medical issues- No response from Both [facility], [facility]- Called @ 1840spoke with [place]- They will review over night -No beds but will have discharges in the morning 09/01 Pep- 0713-09/01 no beds per Laura. [facility]- M 0722 09/01 Andrei Fisher- will review once TSH is back- Spoke to Khushboo 09/01 0722 Delio Smith -09/01 0743 No Beds per Pam [facility]- [place] 0744 no beds -09/01 [facility] 09/01 0746 Jennifer No beds - No Discharges [place]- [facility] Denied 08/31 due to Medical acuity per Joan Original Note: Faxed records for bed placement to : [facility], [facility], [facility], [facility], [facility], [facility], , [facility], [facility], [facility], [facility]. @ 1323-
[2023-09-01 15:10] LABS: Troponin 5 6HR 51.89 ng/L (0-10)
[2023-09-01 15:11] LABS: Troponin 5 6HR Delta -6.11 ng/L (0-12)
--- NOTE | 2023-09-01 15:16 | CTR_ITS ---
PROCEDURE INFORMATION: Exam: CT Abdomen And Pelvis Without Contrast Exam date and time: 09/01/2023 3:41 PM Age: 78 years old Clinical indication: Abdominal pain; Generalized TECHNIQUE: Imaging protocol: Computed tomography of the abdomen and pelvis without contrast. Sagittal and coronal reformatted images were created and reviewed. Radiation optimization: All CT scans at this facility use at least one of these dose optimization techniques: automated exposure control; mA and/or kV adjustment per patient size (includes targeted exams where dose is matched to clinical indication); or iterative reconstruction. COMPARISON: CR XR pelvis 1-2V* [id number] 08/23/2021 2:04 PM RADIATION DOSE METRICS: Total DLP (mGy-cm): 384.73 FINDINGS: Limitations: Evaluation of solid organs and vasculature is limited without intravenous contrast. Lungs: Calcified granulomas in the right lower lobe. Dependent atelectasis in the lungs bilaterally. Pleural spaces: Trace right pleural effusion. Right diaphragmatic and pleural calcifications. Heart: Visualized portions of the heart are mildly enlarged. Calcification of the aortic valve and mitral valve annulus. Coronary arteries: Moderate atherosclerotic calcification in the visualized coronary arteries. Liver: Multiple calcified granulomas in the liver. Gallbladder and bile ducts: The gallbladder is unremarkable. No biliary ductal dilatation. Pancreas: The pancreas is unremarkable. No pancreatic ductal dilatation. Spleen: Calcified granuloma in the spleen. Adrenal glands: The right and left adrenal glands are unremarkable. Kidneys and ureters: The right and left kidneys are unremarkable. The right and left ureters are unremarkable. Stomach and bowel: Numerous diverticula in the sigmoid colon. No evidence for diverticulitis. The stomach is unremarkable for the degree of distension. No acute abnormality in the small bowel. Appendix: Appendix not definitely visualized. No inflammatory changes in the pericecal region however. Intraperitoneal space: Stranding of the mesenteric fat near the mesenteric root with relative sparing around the vessels in this region. Multiple prominent mesenteric lymph nodes. No free intraperitoneal air. No ascites. No loculated fluid collections to suggest an abscess. Vasculature: Extensive atherosclerotic changes in the visualized arteries. Greater than 90% stenosis of the proximal right common iliac artery. No evidence for aortic aneurysm. Lymph nodes: No lymphadenopathy. No lymphadenopathy. Urinary bladder: The bladder is unremarkable. Reproductive: The uterus, right ovary, and left ovary are unremarkable. Bones/joints: Degenerative changes in the spine, sacroiliac joints, and hips. Mild levoscoliosis in the visualized spine. Soft tissues: No acute abnormality in the extra-abdominal soft tissues. CT/CT abdomen pelvis wo con [id number] IMPRESSION: 1. Extensive atherosclerotic changes in the visualized arteries. Greater than 90% stenosis of the proximal right common iliac artery. 2. Trace right pleural effusion. 3. Sigmoid diverticulosis. No evidence for diverticulitis. 4. Findings suspicious for mesenteric panniculitis. 5. Right diaphragmatic and pleural calcifications. Differential diagnosis includes asbestos related pleural disease versus sequela of prior trauma or infection. 6. Incidental/nonacute findings are listed in the report.
[2023-09-01 15:39] LABS: Creatine Phosphokinase 451 U/L (26-192)
--- NOTE | 2023-09-01 18:37 | PC.NURSE ---
PATIENT REFUSED IV AND FLUIDS MULTIPLE TIMES. VERBAL ORDER FROM DR. HAHN THAT SHE CAN SKIP FLUIDS.
--- NOTE | 2023-09-01 20:33 | PC.NURSE ---
public admin superannuation funds manager, Ford Winter, gave permission to treat patient entirely.
[2023-09-02 05:45] VITALS: BP 183/79; PULSE 105; RESP 16; O2SAT 98
--- NOTE | 2023-09-02 06:12 | PC.NURSE ---
pt refusing 0600 labs. notified. will try again 0700
--- NOTE | 2023-09-02 09:55 | PC.SOCIAL ---
Referral 0943- Referral faxed to [facility]. 0950-Spoke with dOalys at [facility] to f/u on referral. She said she would have to go find it, she has not seen it. She calls back at 0955 and asks CM to refax. Referral faxed at this time. 0950- Referral faxed to [facility] in [place], [place].
--- NOTE | 2023-09-02 11:05 | PC.NURSE ---
PATIENT REFUSED LABS TO LAB STAFF. I ATTEMPTED TO ASK PATIENT TO LET ME DRAW HER BLOOD. PATIENT REFUSED FOR NURSE TO DRAW BLOOD.
[2023-09-02 11:06] VITALS: BP 189/76; PULSE 115; O2SAT 96
[2023-09-02] MEDS: OLANZapine 10 mg VIAL 5 MG IM (12:42)
[2023-09-02] MEDS: water for injection-sterile 10 ML (12:43)
--- NOTE | 2023-09-02 12:48 | PC.SOCIAL ---
Sara-Psych 1237- Claire at [facility] states that they do have a female bed available; but have not had time to review referral yet. They will call us once they have. 1238- Chery at [facility] reports that they still have no beds and no planned d/c for today. 0955-Odalys at [facility] reports that they didn't get referral. It was refaxed. 1216-Left Odalys a voicemail to f/u. 1240- Khushboo at [facility] reports that they do not have beds currently, but have discharges, to call back this afternoon. 1241-[facility] reports that they are at capacity, no beds available. 1242- [facility] reports no beds available. 1243- Carmen at [place] reports that they didn't receive referral- Refaxed at this time.
--- NOTE | 2023-09-02 13:03 | P.PN_ITS ---
Subjective 2 Subjective: Awake and alert. Is willing to take her losartan and metoprolol now. Got Zyprexa IM earlier. Still with delusions. Orally hydrating in the room. Medications: Reviewed: Yes Vitals/I&O/Wt Last Vital Signs Temp 98.5 F 09/01/23 07:57 Pulse 115 H 09/02/23 11:06 Resp 16 09/02/23 05:45 BP 189/76 09/02/23 11:06 Pulse Ox 96 09/02/23 11:06 O2 Del Method Room Air 09/02/23 11:06 Weight last 48 hrs Weight 70.307 kg Physical Exam 2 Narrative: General exam is a white female, somewhat evasive in her answers, but cooperative for me Neck is supple no lymphadenopathy thyromegaly Cardiovascular regular rate and rhythm, no murmur Lungs clear Abdomen is soft nontender positive bowel sounds Extremities no sinus clubbing edema Skin no rash Neuro no focal deficits. Data 09/01/23 08:36 09/01/23 08:36 Micro: Microbiology 09/01/23 08:36 Blood Culture - Preliminary Blood NEGATIVE TO DATE 09/01/23 08:36 Blood Culture - Preliminary Blood NEGATIVE TO DATE A&P Assessment and plan (1) Delusions: Patient has hard to recent hospital ER visits now for concerns of delusions. According to previous history and physical she apparently has had this happen in the past as well. She has had appropriate workup for reversible causes of dementia with the exception of an RPR. Will order. Note the B12 and TSH and CT head showed no significant findings. From her underlying presentation I would be concerned that she may have underlying dementia, with behaviors or other mental health disorder. It will be useful for corollary history through family members. Psychiatric referral/consultation is indicated. Would not restart any of her medication consisting of ciprofloxacin, cyclobenzaprine, or tramadol. Delusions are still present. Zyprexa 5 mg IM was given earlier. (2) Elevated CK: CK is mildly elevated Patient has no evidence of urinary abnormality, elevated creatinine. She currently does not qualify for diagnosis of rhabdomyolysis. Usually this would be present if CK is greater than 5 times the upper limit of normal, and usually greater than 5000 She does appear mildly dehydrated on exam, so 500 cc normal saline bolus was ordered on arrival. CK level decreased. Secondary to CK being slightly elevated and LFTs being slightly elevated would stop her statin currently. She does not need hospitalized for her elevated CK level. She continues to orally hydrate. (3) Transaminitis: Mild elevation in transaminases in this patient is who is asymptomatic Repeat as an outpatient Stop statin currently Note that she is already had a hepatitis panel that is negative. Plan Hypertension. Toprol XL 100 mg daily ordered, first dose now. Losartan 50 mg a day ordered based on her home medicines. Thank you for this consultation. Please call with any questions. 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
[2023-09-02] MEDS: metoprolol succinate ER (24 HR) 50 mg Tablet 100 MG PO (14:00)
[2023-09-02] MEDS: amlodipine 5 mg Tablet PO (14:01)
[2023-09-02] MEDS: losartan 50 mg Tablet PO (14:01)
[2023-09-02 14:34] LABS: Basophils # 0.1 10^3/uL (0.0-0.1); Basophils % 0.8 %; Eosinophils % 0.4 %; Lymphocytes # 2.5 10^3/uL (0.8-4.8); Lymphocytes % 23.8 %; Mean Corpuscular HGB Conc 33.5 g/dL (30-55); Mean Corpuscular Hemoglobin 36.5 pg (27-33); Mean Corpuscular Volume 108.8 fl (85-98); Mean Platelet Volume 10.1 fL (7.4-10.4); Monocytes # 1.3 10^3/uL (0.2-0.9); Neutrophils # 6.68 10^3/uL (1.8-7.7); Neutrophils % 62.7 %; Nucleated Red Blood Cells % 0.3 %; Platelet Count 305 10^3/cmm (157-399); Red Blood Count 2.85 10^6/uL (3.85-5.65); Red Cell Distribution Width 12.6 % (12.1-15.1); White Blood Count 10.64 10^3/uL (3.29-11.43)
[2023-09-02 14:54] LABS: Alanine Aminotransferase 62 U/L (0-33); Albumin Level 4.5 g/dL (3.5-5.2); Alkaline Phosphatase 73 U/L (35-105); Anion Gap 18.1 (5-19); Aspartate Amino Transferase 66 U/L (0-32); Blood Urea Nitrogen 15 mg/dL (8-23); Calcium 9.1 mg/dL (8.5-10.5); Carbon Dioxide 25 mmol/L (22-29); Chloride 99 mmol/L (98-107); Creatinine Clr Calc Pharmacy 51.1324; Globulin 2.6 g/dL (1.3-4.6); Glucose 111 mg/dL (65-115); Osmolality Calculated 288 mOsm/kg (285-295); Potassium 4.1 mmol/L (3.5-5.1); Sodium 138 mmol/L (136-145); Total Bilirubin 0.8 mg/dL (0.15-1.2); Total Protein 7.1 g/dL (6.6-8.7)
[2023-09-02 14:56] LABS: Creatine Phosphokinase 635 U/L (26-192)
[2023-09-02 14:58] LABS: Troponin T (5th) Once 75 ng/L (0-10)
[2023-09-02 14:59] LABS: Influenza A by IFA negative (Negative); Influenza B by IFA negative (Negative)
[2023-09-02 15:30] LABS: Thyroid Stimulating Hormone 1.12 uIU/mL (0.27-4.20)
--- NOTE | 2023-09-02 15:40 | PC.SOCIAL ---
Referrals 09/01 Spoke with Nicky at 1237 and 1514; Updated labs and affadavit faxed. Claire states that they will review and see if they can accept today. 1323-Chery [facility] no beds and no d/c today. 1644-[facility]- No beds. 1544- [place] [facility]-Declined referral- no reason provided when asked. 1545-Khushboo states that they still do not have beds open yet; TSH Level faxed. Provided ER phone number to call in the event they have a bed open up after CM leaves and before [facility] has bed open. 1241-[facility]- No beds 1242-[facility]- No beds 1243-Spoke with Carmen at [facility]- Referral refaxed.
--- NOTE | 2023-09-02 19:13 | PC.NURSE ---
PT REFUSING TO TAKE ORDERED RESPERIDONE. WILL ATTEMPT AGAIN SHORTLY.
--- NOTE | 2023-09-02 19:35 | PC.NURSE ---
PT FOUND WITH HALF UNKNOWN BLUE PILL. PT HAS HAD NO MEDICATIONS SINCE ARRIVAL THAT REQUIRED HALF DOSE.
[2023-09-03] MEDS: OLANZapine 10 mg VIAL 5 MG IM (00:24)
--- NOTE | 2023-09-03 00:25 | PC.NURSE ---
PT WAS UNCOOPERATIVE WITH ZYPREXA ADMINISTRATION. AFTER MUCH DISCUSSION AND CONVINCING, PT RELENTED AND ALLOWED AIDA FIGUEROA TO ADMINISTER MEDICATION TO LEFT DELTOID.
--- NOTE | 2023-09-03 02:00 | PC.NURSE ---
CALL PLACED TO HOSPITALIST DUE TO PT HAVING NO REACTION TO ZYPREXA ADMINISTRATION. NEW VERBAL ORDERS RECEIVED, ORDER TO BE PLACED.
[2023-09-03] MEDS: haloperidol inj 5 mg/mL INJ 1 mL 2 MG IM (03:13)
[2023-09-03 04:40] VITALS: BP 177/69; PULSE 103; RESP 20; O2SAT 100
--- NOTE | 2023-09-03 04:40 | PC.NURSE ---
PT IS AGITATED AND STATES THAT IT FEELS LIKE AN ELEPHANT IS SITTING ON HER CHEST. EKG ORDERED PER CHEST PAIN PROTOCOL.
--- NOTE | 2023-09-03 04:46 | ECG_ITS ---
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 Measurements Intervals [place] Rate: 134 P: 38 LA: 107 QRS: 1 QRSD: 74 T: 107 QT: 287 QTc: 430 Interpretive Statements SINUS TACHYCARDIA WITH SHORT LA INTERVAL LEFT VENTRICULAR HYPERTROPHY AND ST-T CHANGE [VOLTAGE CRITERIA PLUS ST/T ABNORMALITY] Compared to ECG 09/01/2023 16:07:21 Short [place] interval now present Left ventricular hypertrophy now present ST (T wave) deviation now present Sinus rhythm no longer present T-wave abnormality no longer present Electronically Signed On 09-04-2023 13:58:21 CDT by Wali Rodney M.D. [id number]
--- NOTE | 2023-09-03 04:50 | PC.NURSE ---
PT WAS AGGRESSIVE TOWARD STAFF WHILE WE WERE ATTEMPTING TO PERFORM AN EKG DUE TO PT REPORT OF FEELING LIKE AN ELEPHANT SITTING ON HER CHEST. PT GRABBED THIS NURSE'S LEFT FOREARM AND SQUEEZED VERY TIGHTLY, TO THE POINT OF BEING PAINFUL. PT REFUSED TO RELEASE HER PHYSICIAN COMPENSATION ANALYST WHEN REQUESTED. THIS NURSE PEELED PT'S THUMB AWAY FROM FOREARM TO RELEASE HER PHYSICIAN COMPENSATION ANALYST. PT WAS UNINJURED DURING THIS ENCOUNTER. THIS WAS WITNESSED BY AIDA MENON WHILE ATTEMPTING TO ASSIST WITH EKG.
[2023-09-03 08:20] VITALS: BP 183/100; PULSE 118; O2SAT 98
[2023-09-03 09:41] VITALS: BP 183/100
[2023-09-03] MEDS: metoprolol succinate ER (24 HR) 50 mg Tablet 100 MG PO (09:41)
[2023-09-03] MEDS: losartan 50 mg Tablet PO (09:41)
--- NOTE | 2023-09-03 09:46 | PC.NURSE ---
pt refusing to take ordered risperidone. pt agreed to only take 50mg metoprolol and losartan. pt explained reasoning as to why she needs the meds to which she stated, I am past the point of caring.
[2023-09-03] MEDS: OLANZapine 10 mg VIAL IM (12:51)
[2023-09-03] MEDS: water for injection-sterile 10 ML 2.10000000000000009 ML (13:00)
[2023-09-03] MEDS: water for injection-sterile 10 ML (13:13)
[2023-09-03 13:39] VITALS: BP 160/75; PULSE 117; TEMP 37.4; O2SAT 98
[2023-09-03] MEDS: risperiDONE 1 mg Tablet PO (18:50)
== END 2023-09-03 21:40 ==
PROVIDERS: Internal Medicine; Emergency Provider Family Medicine; PCP Family Medicine
DX: F23 Brief psychotic disorder (principal); F22 Delusional disorders; Z11.52 Encounter for screening for COVID-19
CPT/HCPCS: 36415; 70450; 71045; 74176; 80053; 80306; 80307; 81001; 81003; 82550; 83605; 83690; 84443; 84484; 85025; 86592; 87040; 87426; 87804; 87899; 93005; 96372; 99285; J1630; J2060; J3486; J3490

== ENCOUNTER 2023-09-16 10:08 | Outpatient (CLI) | payer MEDICARE, SELFPAY ==
--- NOTE | 2023-09-16 10:17 | XR_ITS ---
WS: [id number] XR chest 2V insp/exp [id number] REASON FOR EXAM: difficulty breathing/acute edema FINDINGS: Compared to the previous examination of 09/01/2023, the fine reticular opacities in the lung bases has progressed to the course reticular interstitial lung opacities. Large calcified right pleural plaque again noted. Possible right pleural effusion. No other significant interval change or new finding. XR/XR chest 2V insp/exp [id number] IMPRESSION: Increasing abnormality in the lower lungs with possible right pleural effusion. Findings may indicate congestive failure or pneumonitis.
== END 2023-09-16 10:09 | disposition home or self-care (01) ==
PROVIDERS: PCP Family Medicine; Visit Provider Family Medicine
DX: I50.9 Heart failure, unspecified (principal); J98.4 Other disorders of lung
CPT/HCPCS: 71046; 80053; 83880; 85025; J0696

== ENCOUNTER 2023-09-24 08:25 | Outpatient (CLI) | payer MEDICARE, SELFPAY ==
--- NOTE | 2023-09-24 08:32 | XRR_ITS ---
PROCEDURE INFORMATION: Exam: XR Chest Exam date and time: 09/24/2023 8:36 AM Age: 78 years old Clinical indication: Condition or disease; Lung condition and disease; Pneumonia; Additional info: F/u from 09/16/23: Chf/pneumonia right lung TECHNIQUE: Imaging protocol: Radiologic exam of the chest. Views: 2 views. COMPARISON: CR XR chest 2V insp/exp [id number] 09/16/2023 10:23 AM FINDINGS: Lungs: Bilateral calcified granuloma. Interval resolution of consolidative opacity in the right lung base. The left lung is clear. Pleural spaces: Interval resolution of right pleural effusion. Heart/Mediastinum: No cardiomegaly. Vasculature: Atherosclerotic calcifications of the aorta. Bones/joints: Unremarkable. XR/XR chest 2V* [id number] IMPRESSION: Interval resolution of consolidative opacity in the right lung base and right pleural effusion.
== END 2023-09-24 08:26 | disposition home or self-care (01) ==
PROVIDERS: PCP Family Medicine; Visit Provider Family Medicine
DX: J81.1 Chronic pulmonary edema (principal); J84.10 Pulmonary fibrosis, unspecified
CPT/HCPCS: 71046

== ENCOUNTER 2023-09-25 18:25 | Emergency (ER) | payer MEDICARE, SELFPAY ==
[2023-09-25 18:29] VITALS: BP 182/92; PULSE 76; RESP 20; TEMP 36.7; O2SAT 96; BMI 28.9
--- NOTE | 2023-09-25 18:29 | CTR_ITS ---
PROCEDURE INFORMATION: Exam: CT Head Without Contrast Exam date and time: 09/25/2023 6:25 PM Age: 78 years old Clinical indication: Stroke-like symptoms; RT upper extremity and RT lower extremity weakness; Additional info: Stroke alert TECHNIQUE: Imaging protocol: Computed tomography of the head without contrast. Radiation optimization: All CT scans at this facility use at least one of these dose optimization techniques: automated exposure control; mA and/or kV adjustment per patient size (includes targeted exams where dose is matched to clinical indication); or iterative reconstruction. Other technique: STROKE PROTOCOL was implemented. COMPARISON: CT head wo con* [id number] 09/01/2023 9:02 AM RADIATION DOSE METRICS: Total DLP (mGy-cm): 1049.83 FINDINGS: Brain: Mild nonspecific white matter low attenuation which may be related to microvascular ischemic changes. No acute confluent lobar ischemic infarct. No acute intracranial hemorrhage. Cerebral ventricles: The ventricles and sulci are prominent in size compatible with mild atrophy. Paranasal sinuses: Fluid level in the left sphenoid sinus. Opacification of the posterior left ethmoid air cell. Mastoid air cells: Visualized mastoid air cells are well aerated. Bones: No acute calvarial fracture. Soft tissues: Visualized soft tissues are unremarkable. CT/CT head thrombolytic [id number] IMPRESSION: No acute intracranial abnormality. If symptoms persist, consider further evaluation with MRI, if MRI is clinically safe to obtain. ASSESSMENT: ASPECTS ([place] Stroke Program Early CT Score) is 10.
--- NOTE | 2023-09-25 18:39 | XRR_ITS ---
PROCEDURE INFORMATION: Exam: XR Chest Exam date and time: 09/25/2023 7:16 PM Age: 78 years old Clinical indication: Injury or trauma; Fall; Blunt trauma (contusions or hematomas); Additional info: Trauma, fall, eval injury TECHNIQUE: Imaging protocol: Radiologic exam of the chest. Views: 1 view. COMPARISON: CR XR chest 2V* [id number] 09/24/2023 8:36 AM FINDINGS: Lungs: Calcified granulomas in both lungs. Shallow inspiration with parenchymal crowding and left base atelectasis. Pleural spaces: Stable medial right calcified pleural plaque. Heart/Mediastinum: Cardiomegaly, accentuated by shallow inspiration. Bones/joints: Unremarkable. XR/XR chest 1V portable [id number] IMPRESSION: Left base atelectasis.
--- NOTE | 2023-09-25 18:39 | CTR_ITS ---
PROCEDURE INFORMATION: Exam: CTA Head With Contrast, Arteriography Exam date and time: 09/25/2023 7:01 PM Age: 78 years old Clinical indication: Stroke-like symptoms; RT upper extremity and RT lower extremity weakness; Additional info: CVA, eval L mca TECHNIQUE: Imaging protocol: Computed tomographic angiography of the head with contrast. Exam focused on the arteries. 3D rendering (Not supervised by radiologist): MIP and/or 3D reconstructed images were created by the technologist. Radiation optimization: All CT scans at this facility use at least one of these dose optimization techniques: automated exposure control; mA and/or kV adjustment per patient size (includes targeted exams where dose is matched to clinical indication); or iterative reconstruction. Contrast material: OMNI 350; Contrast volume: 100 ml; Contrast route: INTRAVENOUS (IV); COMPARISON: CT head thrombolytic [id number] 09/25/2023 6:25 PM RADIATION DOSE METRICS: Total DLP (mGy-cm): 456.52 FINDINGS: ANTERIOR CIRCULATION: Right internal carotid artery: Calcified plaque in the right carotid siphon with mild-moderate stenosis. Right middle cerebral artery: No occlusion or significant stenosis. No aneurysm. Right anterior cerebral artery: No occlusion or significant stenosis. No aneurysm. Left internal carotid artery: Calcified plaque in the left carotid siphon mild-moderate stenosis. 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 There is reconstituted flow within left M3 and M4 branches with multiple intermittent segmental filling defects. Left anterior cerebral artery: No occlusion or significant stenosis. No aneurysm. POSTERIOR CIRCULATION: Right vertebral artery: Calcified plaque in the right vertebral artery with moderate stenosis. Left vertebral artery: Calcified plaque in the left vertebral artery with mild-moderate stenosis. Basilar artery: No occlusion or significant stenosis. No aneurysm. Right posterior cerebral artery: No occlusion or significant stenosis. No aneurysm. Left posterior cerebral artery: No occlusion or significant stenosis. No aneurysm. Other arteries: No hyperdense artery. Brain: Mild hypodensities in supratentorial periventricular and subcortical white matter, consistent with microangiopathy. No intracranial hemorrhage. Cerebral ventricles: No ventriculomegaly. Orbital cavities: Prior cataract surgery. Bones/joints: Unremarkable. No acute fracture. Soft tissues: Unremarkable. PROCEDURE INFORMATION: Exam: CTA Neck With Contrast Exam date and time: 09/25/2023 7:01 PM Age: 78 years old Clinical indication: Stroke-like symptoms; RT upper extremity and RT lower extremity weakness; Additional info: CVA, eval L mca TECHNIQUE: Imaging protocol: Computed tomographic angiography of the neck with contrast. Exam focused on the cervical segments of the vasculature. 3D rendering (Not supervised by radiologist): MIP and/or 3D reconstructed images were created by the technologist. Radiation optimization: All CT scans at this facility use at least one of these dose optimization techniques: automated exposure control; mA and/or kV adjustment per patient size (includes targeted exams where dose is matched to clinical indication); or iterative reconstruction. Contrast material: OMNI 350; Contrast volume: 100 ml; Contrast route: INTRAVENOUS (IV); COMPARISON: CT head thrombolytic [id number] 09/25/2023 6:25 PM RADIATION DOSE METRICS: Total DLP (mGy-cm): 456.52 FINDINGS: Right common carotid artery: Calcified plaque in the distal right common carotid artery with 0% stenosis. Right internal carotid artery: Calcified plaque in the proximal right internal carotid artery with 80% stenosis. Right external carotid artery: No occlusion or stenosis of the origin. Left common carotid artery: Calcified plaque in the distal left common carotid artery with 30% stenosis. Left internal carotid artery: Calcified plaque in the proximal and mid left internal carotid artery with 0% stenosis proximally and 20% stenosis in the mid artery. Left external carotid artery: No occlusion or stenosis of the origin. Right vertebral artery: No stenosis. No dissection or occlusion. Left vertebral artery: Moderate stenosis in the proximal left vertebral artery. Right subclavian artery: Calcified plaque with mild stenosis in the proximal right subclavian artery. Left subclavian artery: Calcified plaque in the proximal left subclavian artery with 50% stenosis. Soft tissues: Normal. No significant soft tissue swelling. Bones/joints: No acute fracture. Lungs: Mosaic attenuation in both lungs, consistent with mild air trapping. Right calcified granuloma. Pleural spaces: Small pleural effusions. CT/CT angio headneck* [id number] IMPRESSION: 1. 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 There are multiple small intermittent filling defects within the M3 and M4 branches. 2. Vvnq-[id number] stenoses in the bilateral carotid siphons. 3. Calcified plaque in the vertebral arteries with moderate stenosis on the right and mild-moderate stenosis on the left. IMPRESSION: 1. Calcified plaque with 80% stenosis in the proximal right internal carotid artery. 2. Calcified plaque with 50% stenosis in the proximal left subclavian artery. 3. 20% stenosis in the mid left internal carotid artery. REFERENCES: NASCET CRITERIA. The degree of stenosis in the cervical segment of the internal carotid artery is based on NASCET criteria. Normal is no stenosis. Mild is less than 50% stenosis. Moderate is 50-69% stenosis. Severe is 70% to 99% stenosis. Total occlusion is no detectable patent lumen.
--- NOTE | 2023-09-25 18:44 | ECG_ITS ---
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 Measurements Intervals [place] Rate: 81 P: 62 [place]: 124 QRS: 38 QRSD: 84 T: 100 QT: 369 QTc: 430 Interpretive Statements SINUS RHYTHM WITH OCCASIONAL SUPRAVENTRICULAR PREMATURE COMPLEXES NONSPECIFIC ST & T-WAVE ABNORMALITY Compared to ECG 09/03/2023 04:46:25 T-wave abnormality now present Sinus tachycardia no longer present Short [place] interval no longer present Left ventricular hypertrophy no longer present ST (T wave) deviation no longer present Electronically Signed On 09-25-2023 20:02:11 CDT by Ariana Asif M.D. [email or web address].[email or web address] ([facility].[employer]/store/[id number]
[2023-09-25 18:55] LABS: Basophils # 0.1 10^3/uL (0.0-0.1); Basophils % 0.4 %; Eosinophils # 0.1 10^3/uL (0.0-0.8); Eosinophils % 0.3 %; Hematocrit 29.5 % (36-47); Lymphocytes # 1.6 10^3/uL (0.8-4.8); Lymphocytes % 11.3 %; Mean Corpuscular HGB Conc 33.2 g/dL (30-55); Mean Corpuscular Hemoglobin 37.3 pg (27-33); Mean Corpuscular Volume 112.2 fl (85-98); Mean Platelet Volume 10.5 fL (7.4-10.4); Monocytes # 1.6 10^3/uL (0.2-0.9); Monocytes % 10.8 %; Neutrophils # 10.97 10^3/uL (1.8-7.7); Neutrophils % 76.6 %; Nucleated Red Blood Cells # 0.1 /100WBC; Nucleated Red Blood Cells % 0.6 %; Platelet Count 238 10^3/cmm (157-399); Red Blood Count 2.63 10^6/uL (3.85-5.65); Red Cell Distribution Width 16.3 % (12.1-15.1); White Blood Count 14.34 10^3/uL (3.29-11.43)
--- NOTE | 2023-09-25 18:57 | ED_ITS ---
HPI - Neuro Symptoms/Deficit 2 General: Chief Complaint: Neuro Symptoms/Deficit Stated Complaint: stroke alert Time Seen by Provider: 09/25/23 18:28 History of Present Illness: HPI: Patient with recent admission to [facility] for atrial fibrillation and pneumonia. Discharged and taken off of anticoagulation medication approximately 2 weeks ago. Presenting by EMS as a field activation code stroke. Last known normal was 1730 hrs. when family heard a thud in a different room. She has been unable to communicate since or move the right side of her body. ROS: 10 systems reviewed and otherwise unrema rkable except for those noted in HPI. Physical Exam: Triage vital signs reviewed General: Noncommunicative, looking in the left direction turning head that way only, does not respond to pain on the right side of her body HEENT: Normocephalic, atraumatic, external ears normal, moist mucous membranes, PERRLA. Chest: Normal inspection, equal rise and fall, no edema Respiratory: Normal respiratory effort, no atypical respiratory sounds GI: Non-tender to palpation, non-distended, Extremities: Moving all 4 extremities easily, no deformities Neuro: No meningeal signs, motor function in the room without abnormalities, sensation intact Patient unable to hold right arm and right leg up, has right sided hemineglect and will not form any words. Response to command to squeeze hand with left upper extremity. NIH stroke scale of 19, see neurologist note for full exam. Skin: No rashes, bruising, warm, dry Psychiatric: Unassessable due to expressive aphasia Procedures: EKG: Rate: Normal Rhythm: Sinus [place]: Normal variant Intervals: Normal Ischemia: No STEMI criteria MDM: Considered diagnoses include but are not limited to large vessel occlusion in the MCA, intracranial hemorrhage, electrolyte derangement, ACS, sepsis. Vital signs nonactionable. 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 Patient be transferred by air to [facility] for neurointervention capability not available here. Dr. Thomason accepting of [facility] Neuro service. I had extensive repetitive discussions with the patient's daughter in the room and she was uncertain about signing the consent for tenecteplase. I spoke to the medical decision-maker over the phone with witness present who verbally consented for tenecteplase despite having apixaban as listed medication. Family is adamant that she has not been taking this medication and accepts the risk of tenecteplase administration. Tenecteplase administration will not interfere with neurointerventional capability at the receiving institution. Blood pressure borderline so gave 10 mg of intravenous labetalol given about to get on the aircraft after tenecteplase. Blood pressure 185 systolic advised to make an appointment with primary care or to establish care with a primary care provider to review all results from this encounter. This note was written with assistance of dictation software. Contact author for any clarification of typos. Haresh Oakes MD [facility] ED 2 PFSH: Medical History Spinal stenosis at L4-L5 level Osteoarthritis Allergic rhinitis due to allergen Hypercholesteremia History of depression Hypertension Surgical History History of unilateral oophorectomy History of arthroscopy of left knee History of foot surgery right calcaneus fracture Status post total knee replacement, left Family History Other Hyperlipidemia Hypertension Social History Smoking and tobacco/nicotine status: former use of tobacco/nicotine Alcohol intake: never Substance/Drug Use: never Course 2 Vital Signs: Vital signs: Vital Signs Temperature 98.1 F 09/25/23 18:29 Pulse Rate 76 09/25/23 18:29 Respiratory Rate 20 H 09/25/23 18:29 Blood Pressure 182/92 09/25/23 18:29 Pulse Oximetry 96 09/25/23 18:29 Oxygen Delivery Me thod Room Air 09/25/23 18:29 MDM - Neuro Symptoms/Deficit Medical Decision Making see MDM Lab Data 09/25/23 18:15 09/25/23 19:[address] 09/25/23 18:29 IMPRESSION: No acute intracranial abnormality. If symptoms persist, consider further evaluation with MRI, if MRI is clinically safe to obtain. ASSESSMENT: ASPECTS (Kathi Stroke Program Early CT Score) is 10. ADDENDUM: 09/25/23 9991 ADDENDUM: THIS REPORT CONTAINS FINDINGS THAT MAY BE CRITICAL TO PATIENT CARE. The findings were verbally communicated via telephone conference with Haresh Oakes at 6:48 PM CDT on 09/25/2023. The findings were acknowledged and understood. Chest X-Ray 09/25/23 18:39 IMPRESSION: Left base atelectasis. Head/Neck CTA 09/25/23 18:39 IMPRESSION: 1. 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 There are multiple small intermittent filling defects within the M3 and M4 branches. 2. [id number] stenoses in the bilateral carotid siphons. 3. Calcified plaque in the vertebral arteries with moderate stenosis on the right and mild-moderate stenosis on the left. IMPRESSION: 1. Calcified plaque with 80% stenosis in the proximal right internal carotid artery. 2. Calcified plaque with 50% stenosis in the proximal left subclavian artery. 3. 20% stenosis in the mid left internal carotid artery. REFERENCES: NASCET CRITERIA. The degree of stenosis in the cervical segment of the internal carotid artery is based on NASCET criteria. Normal is no stenosis. Mild is less than 50% stenosis. Moderate is 50-69% stenosis. Severe is 70% to 99% stenosis. Total occlusion is no detectable patent lumen. ADDENDUM: 09/25/232000 THIS REPORT CONTAINS FINDINGS THAT MAY BE CRITICAL TO PATIENT CARE. The findings were verbally communicated via telephone conference with Haresh Oakes at 7:59 PM CDT on 09/25/2023. The findings were acknowledged and understood. Laboratory Results WBC 14.34 10^3/uL (3.29-11.43) H 09/25/23 18:15 RBC 2.63 10^6/uL (3.85-5.65) L 09/25/23 18:15 Hgb 9.80 g/dL (11.27-16.99) L 09/25/23 18:15 Hct 29.5 % (36-47) L 09/25/23 18:15 MCV 112.2 fl (85-98) H 09/25/23 18:15 MCH 37.3 pg (27-33) H 09/25/23 18:15 MCHC 33.2 g/dL (30-55) 09/25/23 18:15 RDW 16.3 % (12.1-15.1) H 09/25/23 18:15 Plt Count 238 10^3/cmm (157-399) 09/25/23 18:15 MPV 10.5 fL (7.4-10.4) H 09/25/23 18:15 Neut % (Auto) 76.6 % 09/25/23 18:15 Lymph % (Auto) 11.3 % 09/25/23 18:15 [place] % (Auto) 10.8 % 09/25/23 18:15 Eos % (Auto) 0.3 % 09/25/23 18:15 Baso % (Auto) 0.4 % 09/25/23 18:15 Neut # (Auto) 10.97 10^3/uL (1.8-7.7) H 09/25/23 18:15 Lymph # (Auto) 1.6 10^3/uL (0.8-4.8) 09/25/23 18:15 [place] # (Auto) 1.6 10^3/uL (0.2-0.9) H 09/25/23 18:15 Eos # (Auto) 0.1 10^3/uL (0.0-0.8) 09/25/23 18:15 Baso # (Auto) 0.1 10^3/uL (0.0-0.1) 09/25/23 18:15 Nucleated RBC % (auto) 0.6 % 09/25/23 18:15 Nucleated RBCs # 0.1 /100WBC 09/25/23 18:15 PT 14.70 SECONDS (12.1-14.9) 09/25/23 19:47 INR 1.11 (0.8-1.2) 09/25/23 19:47 APTT 35.7 SECONDS (23.9-36.7) 09/25/23 19:47 Sodium Cancelled 09/25/23 18:15 Potassium Cancelled 09/25/23 18:15 Chloride Cancelled 09/25/23 18:15 Carbon Dioxide Cancelled 09/25/23 18:15 Anion Gap Cancelled 09/25/23 18:15 BUN Cancelled 09/25/23 18:15 Creatinine Cancelled 09/25/23 18:15 GFR Calculation Cancelled 09/25/23 18:15 Glucose Cancelled 09/25/23 18:15 Calculated Osmolality Cancelled 09/25/23 18:15 Calcium Cancelled 09/25/23 18:15 Total Bilirubin Cancelled 09/25/23 18:15 AST Cancelled 09/25/23 18:15 ALT Cancelled 09/25/23 18:15 Alkaline Phosphatase Cancelled 09/25/23 18:15 Total Protein Cancelled 09/25/23 18:15 Albumin Cancelled 09/25/23 18:15 Globulin Cancelled 09/25/23 18:15 Urine Color Yellow (Yellow) 09/25/23 19:39 Urine Appearance Clear (CLEAR) 09/25/23 19:39 Urine pH 8 (5-7) H 09/25/23 19:39 Ur Specific [place] 1.005 (1.005-1.030) 09/25/23 19:39 Urine Protein Neg (Negative) 09/25/23 19:39 Urine Glucose (UA) Norm (Normal) 09/25/23 19:39 Urine Ketones Negative (Negative) 09/25/23 19:39 Urine Blood Neg (Negative) 09/25/23 19:39 Urine Nitrate Negative (Negative) 09/25/23 19:39 Urine Bilirubin Neg (Negative) 09/25/23 19:39 Urine Urobilinogen Neg mg/dL (Negative) 09/25/23 19:39 Ur Leukocyte Esterase Negative (Negative) 09/25/23 19:39 Urine Opiates Screen Negative ng/mL (Negative) 09/25/23 19:39 Ur Barbiturates Screen Negative ng/mL (Negative) 09/25/23 19:39 Ur Phencyclidine Scrn Negative ng/mL (Negative) 09/25/23 19:39 Ur Amphetamines Screen Negative ng/mL (Negative) 09/25/23 19:39 U Benzodiazepines Scrn Negative ng/mL (Negative) 09/25/23 19:39 Urine Cocaine Screen Negative ng/mL (Negative) 09/25/23 19:39 U Marijuana (THC) Screen Negative ng/mL (Negative) 09/25/23 19:39 All radiology interpretation(s) finalized by discharge Discharge Plan Discharge Patient Disposition: Transfer to ED Clinical Impression: Stroke Qualifiers: CVA mechanism: occlusion Precerebral and cerebral artery: middle cerebral artery Laterality of affected vessel: left Qualified Code(s): I63.512 - Cerebral infarction due to unspecified occlusion or stenosis of left middle cerebral artery Condition: Stable Prescriptions: No Action ascorbate calcium (vitamin C) 500 mg tablet 500 mg PO DAILY cholecalciferol (vitamin D3) 10 mcg (400 unit) capsule 10 mcg PO DAILY Premarin 0.625 mg/gram cream See Rx Instructions .ROUTE .COMPLEX Qty: 30 2RF Dose Instruction: APPLY 0.625MG VAGINALLY EVERY DAY Rx Instructions: INSERT 1 GRAM (0.625MG) VAGINALLY EVERY DAY. pravastatin 20 mg tablet 20 mg PO DAILY Qty: 90 3RF losartan 50 mg tablet 50 mg PO DAILY Qty: 90 2RF ferrous sulfate 325 mg (65 mg iron) tablet 325 mg PO DAILY Qty: 90 3RF cetirizine [Zyrtec] 10 mg tablet 10 mg PO DAILY PRN (Reason: allergy symptoms) Qty: 30 1RF albuterol sulfate 2.5 mg/0.5 mL solution for nebulization 2.5 mg inhalation ONCE Qty: 1 0RF albuterol sulfate 90 mcg/actuation HFA aerosol inhaler 2 puff inhalation Q6H PRN (Reason: shortness of breath or wheezing) Qty: 8.5 0RF cefdinir 300 mg capsule 300 mg PO BID Qty: 14 0RF furosemide 40 mg tablet 40 mg PO BID PRN (Reason: for swelling) Qty: 60 1RF potassium chloride [Klor-Con 10] 10 mEq tablet extended release 10 meq PO BID PRN (Reason: When taking Furosemide) Qty: 60 1RF tramadol 50 mg tablet 50 mg PO Q8H PRN (Reason: pain) 30 Days Qty: 90 3RF Fish Oil 1,000 mg (120 mg-180 mg) Capsule 1 cap PO DAILY cyclobenzaprine 10 mg tablet 10 mg PO BID PRN (Reason: MUCLE SPASM) omeprazole 20 mg capsule,delayed release(DR/EC) 20 mg PO DAILY metoprolol tartrate 50 mg tablet 100 mg PO BID vitamin E acetate 134 mg (200 unit) Capsule 134 mg PO DAILY Referrals: Dewayne Jackson MD [Primary Care Provider] - Coding Level of Care Code ED Bulk Delivery Driver for John Mora
[2023-09-25] MEDS: iohexol 350 mg/mL 500 mL Btl (per mL) IV (19:03)
--- NOTE | 2023-09-25 19:18 | PC.NURSE ---
THIS NURSE WENT IN TO OBTAIN INFORMED CONSENT FOR TINKASE ADMINISTRATION DUE TO VERBAL ORDERS FROM DR. PRITCHARD. WHEN IN THE ROOM, VERBAL ORDERS FROM NEUROLOGIST, DR CASEY, THAT WE WERE NOT GIVING TINKASE.
--- NOTE | 2023-09-25 19:24 | PC.NURSE ---
THIS NURSE ENTERED THE ROOM WITH DR CASEY AND DR PRITCHARD WHO WERE DISCUSSING WITH PATIENT FAMILY DUE TO QUESTIONING WHETHER OR NOT PATIENT IS TAKING A BLOOD THINNER. PATIENT FAMILY IS UNSURE WHEN DISCUSSING WITH BOTH PHYSICIANS ABOUT WHETHER PATIENT DOES TAKE HER BLOOD THINNER. PER DR CASEY, DUE TO NOT KNOWING FULLY WHETHER OR NOT PATIENT IS ON BLOOD THINNER OR NOT, THROMBOLYTIC IS NOT BEING ADMINISTERED. ORDERS FROM DR CASEY TO TRANSFER PATIENT WITHOUT ADMINISTERING A THROMBOLYTIC.
--- NOTE | 2023-09-25 19:28 | P.CONIM_ITS ---
Providers/Reason For Consult 2 Consulting Physician/Specialty*: Jose Blanca MD neurology and epilepsy Reason for Consult*: Code stroke/acute care emergency department room #10 Primary Care Provider: Dewayne Jackson MD History of Present Illness History of Present Illness Millicent Fabian is a 78 year old female with a history of hypertension, recent diagnosis of atrial fibrillation and lower extremity edema. The patient was at home on 09/25/2023 and had just gone upstairs to her room. Approximate 30 minutes later a family member heard the patient fall in the bathroom around 5:30 PM on 09/25/2023. When they arrived the patient was lying on her right side with right-sided weakness and unable to speak. Code stroke was initiated at 6:15 PM indicating that the patient's ETA was 10 minutes to [facility] emergency room. Therefore the patient was brought to [facility] emergency department and transferred to emergency department room #10. Noncontrast head CT was obtained and revealed no acute findings. NIH score = 19 (secondary to patient unable to answer either question, patient had left gaze preference with inability to look past the midline to the right, patient had obvious right lower facial weakness, right arm and right leg paralysis, inability to speak, dysarthria and right-sided neglect. CT angiogram of the head and neck were ordered and revealed occlusion of the left M1 and M2 segment. Serum Accu-Chek 187. I was informed by one of the nurses caring for the patient that EMS chelsea blood but the blood coagulated and therefore lab has to be reordered. Coag studies were ordered but pending at the time of this dictation. The family member will go to the patient's home and obtain the patient's medications as no one is at the patient's home to give a accurate or current list of what patient is actually taking. Note: Again it is unclear if the patient is actually off of the Eliquis and therefore patient was not given intravenous tenecteplase secondary to concerns that if the patient is actually on Eliquis and we do not have any coag labs available for review, the patient is at increased risk for hemorrhage. The patient has been accepted via med flight for embolectomy at a facility that has a capacity to perform this procedure. This was discussed with the patient's family who was present in the [facility] emergency department room #10 as well as another sister via telephone who has the emergent guardianship of the patient who was traveling from [place] The patient was recently admitted to [facility] approximately 2 weeks ago and was diagnosed with atrial fibrillation and was started on Eliquis during that hospitalization in [place]. The family also stated the patient was diagnosed with pneumonia. The family states that the patient was started on an antibiotic for the pneumonia. Repeat chest x-ray performed on 09/24/2023 was reported to be negative for pneumonia. The family informed me that the Eliquis was discontinued approximately 1 to 2 weeks ago but according to the nurse working in the [facility] emergency department, the patient refilled the Eliquis on September 14, 2023. According to the family, the patient was seen by her family physician and Eliquis was discontinued approximately 1 to 2 weeks prior to the patient presenting to the [facility] emergency room. But, after further questioning the family in more detail the family stated that the patient sorts and takes her own medications. The family stated that they put the patient's Eliquis in a different location in the patient's home. But it was still not clear if the patient has actually discontinued the Eliquis. Therefore I recommended not giving the patient the intravenous tenecteplase after neurological assessment and evaluation in order to minimize any potential hemorrhagic events and I recommended having the patient transferred to be evaluated for thrombectomy. The family agree with this plan. At 8:02 PM on 09/25/2023 prior to the patient being medevac to, the family return from the patient's home with her current medications and it was confirmed that the patient has no longer on Eliquis which was discontinued according to the family 2 weeks prior to presenting to the [facility] emergency room on 09/25/2023. I was contacted by the ER physician regarding this confirming patient is no longer on Eliquis and I agreed with given the patient intravenous tenecteplase prior to the patient being medevac to for evaluation for thrombectomy since the patient's last known well was 5:30 PM on 09/25/2023 and intravenous tenecteplase will be administered at 8:04 PM on 09/25/2023. Family gave consent for intravenous tenecteplase as well as for transfer for thrombectomy evaluation. Drug allergies: Hydrocodone which resulted in nausea Current medications: Albuterol sulfate 2.5 mg per 0.5 mL solution nebulized daily Albuterol sulfate 90 mcg per accusation 2 puffs every 6 hours as needed for shortness of breath Vitamin C 500 mg p.o. daily Cefdinir 300 mg p.o. twice daily Cetirizine 10 mg p.o. daily Vitamin D3 10 mcg p.o. daily Estrogen 0.625 mg vaginal cream to use as directed Flexeril 10 mg p.o. twice daily, as needed Iron sulfate 325 mg p.o. daily Lasix 40 mg p.o. twice daily, as needed Losartan 50 mg p.o. daily Metoprolol 100 mg p.o. twice daily [place]-3 fish oil 1 capsule p.o. daily Omeprazole 20 mg p.o. daily Potassium chloride 10 mEq p.o. twice daily, as needed Pravastatin 20 mg p.o. q. evening Tramadol 50 mg p.o. every 8 hours as needed Vitamin E 1 and 34 mg p.o. daily Eliquis (according to the family the patient discontinued this medication approximately 1 to 2 weeks prior to her emergency room visit at [facility] emergency department on 09/25/2023 but this is not verified and the patient's family will go to the patient's home to get the patient's medications) Past medical history: Atrial fibrillation diagnosed at [place] (patient was started on Eliquis but according to the family they believe this medication was discontinued recently) Lower extremity edema Hypertension Pneumonia Habits: Unknown Family history: Unknown Review of Systems 2 General: Reports: 10 or more systems reviewed and unremarkable except in HPI and below Medications/Allergies Home Medications Medication Instructions Recorded Confirmed Last Taken Type ascorbate calcium (vitamin C) 500 500 mg PO DAILY 08/11/19 09/21/23 06/21/22 History mg tablet cholecalciferol (vitamin D3) 10 10 mcg PO DAILY 04/16/21 09/21/23 06/21/22 History mcg (400 unit) capsule vitamin E acetate 134 mg (200 134 mg PO DAILY 06/22/22 09/21/23 06/21/22 History unit) capsule tramadol 50 mg tablet 50 mg PO Q8H PRN pain 30 days #90 05/20/23 09/21/23 Unknown Rx tabs cetirizine 10 mg tablet (Zyrtec) 10 mg PO DAILY PRN allergy 06/22/23 09/21/23 Unknown Rx symptoms #30 tabs conjugated estrogens 0.625 mg/gram See Rx Instructions .Route 06/22/23 09/21/23 Unknown Rx vaginal cream (Premarin) .COMPLEX #30 grams ferrous sulfate 325 mg (65 mg 325 mg PO DAILY #90 tabs 06/22/23 09/21/23 Unknown Rx iron) tablet losartan 50 mg tablet 50 mg PO DAILY #90 tabs 06/22/23 09/21/23 Unknown Rx pravastatin 20 mg tablet 20 mg PO DAILY #90 tabs 06/22/23 09/21/23 Unknown Rx cyclobenzaprine 10 mg tablet 10 mg PO BID PRN MUCLE SPASM 09/01/23 09/21/23 Unknown History omega 2-hsk-ito-fish oil 1,000 mg 1 cap PO DAILY 09/01/23 09/21/23 Unknown History (120 mg-180 mg) capsule (Fish Oil) omeprazole 20 mg capsule,delayed 20 mg PO DAILY 09/01/23 09/21/23 Unknown History release albuterol sulfate 90 mcg/actuation 2 puff inhalation Q6H PRN 09/16/23 09/21/23 Unknown Rx aerosol inhaler shortness of breath or wheezing #8.5 grams cefdinir 300 mg capsule 300 mg PO BID #14 caps 09/16/23 09/21/23 Unknown Rx metoprolol tartrate 50 mg tablet 100 mg PO BID 09/16/23 09/21/23 Unknown History furosemide 40 mg tablet 40 mg PO BID PRN for swelling #60 09/18/23 09/21/23 Unknown Rx tabs potassium chloride 10 mEq 10 meq PO BID PRN When taking 09/18/23 09/21/23 Unknown Rx tablet,extended release (Klor-Con) Furosemide #60 tabs Allergies Allergy/AdvReac Type Severity Reaction Status Date / Time hydrocodone Allergy nausea Verified 09/21/23 08:26 PFSH Acute 2 PFSH: Medical History Spinal stenosis at L4-L5 level Osteoarthritis Allergic rhinitis due to allergen Hypercholesteremia History of depression Hypertension Surgical History History of unilateral oophorectomy History of arthroscopy of left knee History of foot surgery right calcaneus fracture Status post total knee replacement, left Family History Other Hyperlipidemia Hypertension Social History Smoking and tobacco/nicotine status: former use of tobacco/nicotine Alcohol intake: never Substance/Drug Use: never Vitals/I&O/Wt Last Vital Signs Temp 98.1 F 09/25/23 18:29 Pulse 76 09/25/23 18:29 Resp 20 H 09/25/23 18:29 BP 182/92 09/25/23 18:29 Pulse Ox 96 09/25/23 18:29 O2 Del Method Room Air 09/25/23 18:29 Weight last 48 hrs Weight 153 lb Physical Exam 2 Narrative: Blood pressure 182/92 heart rate 76 and slightly irregular respirations 20 temperature 98.1 O2 saturation 96% on room air NIH score = 19 (secondary to patient unable to answer either question, patient had left gaze preference with inability to look past the midline to the right, patient had obvious right lower facial weakness, right arm and right leg paralysis, inability to speak, dysarthria and right-sided neglect. The patient is alert she will follow commands using her left arm and left leg. Patient nonverbal with marked nonfluent aphasia and dysarthria. Patient has left gaze preference. Pupils 3 mm round reactive to light and accommodation. Extraocular movements revealed the patient unable to look past the midline to the right. Cranial nerves II through XII revealed right lower facial weakness, inability to speak, patient was able to open her mouth and attempt to protrude her tongue. Visual sidhu were difficult to assess secondary to patient being nonverbal. Motor testing right upper and right lower extremity paralysis. Left arm and left leg 5/5. Plantar responses revealed extensor plantar response on the right and flexor on the left. There was no clonus. Sensory examination was intact to touch. It was difficult to determine if patient had extinction on double sensory stimulation secondary to patient being nonverbal and right-sided paralysis. Throat clear. Lungs clear. Heart revealed occasional ectopy. Extremities were negative for clubbing cyanosis or edema. Diagnostic testing: Head CT noncontrast 09/25/2023 IMPRESSION: No acute intracranial abnormality. If symptoms persist, consider further evaluation with MRI, if MRI is clinically safe to obtain. CT angiogram head and neck 09/25/2023 IMPRESSION: 1. Occlusion of the M1 and M2 segments o f the LEFT middle cerebral artery with reconstituted flow in the M3 and M4 branches. There are multiple small intermittent filling defects within the M3 and M4 branches. 2. Qoxf-lt-xqxoufrz stenoses in the bila teral carotid siphons. 3. Calcified plaque in the vertebral art eries with moderate stenosis on the right and mild-moderate stenosis on the left. IMPRESSION: 1. Calcified plaque with 80% stenosis in the proximal right internal carotid artery. 2. Calcified plaque with 50% stenosis in the proximal left subclavian artery. 3. 20% stenosis in the mid left internal carotid artery. Data 09/25/23 18:15 09/25/23 18:15 A&P Assessment and plan (1) Acute ischemic left MCA stroke: Impression: 1. Acute left MCA distribution stroke with NIH score =19 (NIH score = 19 (secondary to patient unable to answer either question, patient had left gaze preference with inability to look past the midline to the right, patient had obvious right lower facial weakness, right arm and right leg paralysis, inability to speak, dysarthria and right-sided neglect.) Note: Since the family could not initially confirm whether or not the patient is still on Eliquis since the patient sorts and takes her own medications, and pharmacy indicated patient refill the Eliquis on September 14, 2023, patient was not given intravenous thrombolytics following neurological assessment and NIH scoring and CT evaluation which revealed no hemorrhage and I recommended the patient be transferred for thrombectomy for left MCA distribution thrombus reported on CT angiogram head and neck on 09/25/2023. Note: I was contacted by the emergency room physician at approximately 8:03 PM the emergency room physician caring for the patient stated that the family had returned from the patient's home with the patient's medications and the ER physician confirmed that the patient is no longer on Eliquis and was discontinued per patient's family history 2 weeks prior to the patient presenting to the [facility] emergency room on 09/25/2023. Since the patient's last known well was 5:30 PM on 09/25/2023 patient is still in the intravenous window for tenecteplase and therefore I agreed with the patient receiving intravenous tenecteplase prior to being transferred for thrombectomy. The patient's family gave consent for intravenous tenecteplase and for transfer for thrombectomy evaluation. 2. Reports of atrial fibrillation when patient was admitted to [place] patient was started on Eliquis but family suggest that this medication was discontinued but this has not been confirmed. Therefore, I elected not to prescribe intravenous thrombolytics secondary to potential risk of hemorrhagic event if patient is actually taking Eliquis and patient was transferred for thrombectomy 3. 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 There are multiple small intermittent filling defects within the M3 and M4 branches. 4. Jcjl-eb-gdwuldua stenoses in the bilateral carotid siphons. 5. Calcified plaque in the vertebral arteries with moderate stenosis on the right and mild-moderate stenosis on the left. 6. Calcified plaque with 80% stenosis in the proximal right internal carotid artery. 7. Calcified plaque with 50% stenosis in the proximal left subclavian artery. 8. 20% stenosis in the mid left internal carotid artery. 9. Mild cardiac ectopy reported on twelve-lead EKG 03/01/2024 10. Hypertension 11. Lower extremity edema Plan: 1. Agree with giving intravenous tenecteplase per NIH stroke protocol prior to transfer for thrombectomy for left MCA occlusive disease 2. Recommend patient be further evaluated for any underlying cardiac arrhythmias once patient hospitalized at the facility that can address large vessel cerebral artery disease 3. Address right ICA stenosis reported to be 80% 4. Neurochecks and vital signs per NIH stroke protocol post intravenous tenecteplase administration Consult Attestations 2 Medical Necessity Statement: The patient was evaluated by neurology for acute care/code stroke emergency department room #10 Coding Level of Care Code 55272 Diagnoses Acute ischemic left MCA stroke I63.512 Time Spent (min) 60
--- NOTE | 2023-09-25 19:35 | PC.NURSE ---
REPORT CALLED TO CHERELLE MARIN RN AT [facility] IN [place]. NURSE VERBALIZED UNDERSTANDING OF THE PATIENT AND DENIED ANY QUESTIONS.
[2023-09-25 19:43] LABS: Add Urine Microscopic? NO; Charge for UA Resulting for Rev
[2023-09-25 19:49] LABS: Bilirubin Urine Neg (Negative); Blood Urine Neg (Negative); Glucose Urine UA Norm (Normal); Ketones Urine Negative (Negative); Leukocyte Esterase Urine Negative (Negative); Nitrate Urine Negative (Negative); Protein Urine Neg (Negative); Specific Gravity, Urine 1.005 (1.005-1.030); Urine Appearance Clear (CLEAR); Urine Color Yellow (Yellow); Urobilinogen Urine Neg (Negative); pH Urine 8 (5-7)
--- NOTE | 2023-09-25 19:54 | PC.NURSE ---
PT DAUGHTER, FIOR BROUGHT PT HOME MEDICATIONS TO THE NURSES STATION. THIS NURSE DISCUSSED PT MEDICATIONS WITH DAUGHTER FIOR. FIOR STATES MY MOM HAS NOT TAKEN ELIQUIS SINCE DR SUN TOLD HER TO STOP. WHEN THIS NURSE ASKED DAUGHTER FIOR WHAT DAY THE PT LAST TOOK ELIQUIS, FIOR WAS STILL UNABLE TO ARTICULATE A SPECIFIC DAY. THIS NURSE NOTICED THE BOTTLE SHOWED THE ELIQUIS HAD BEEN FILLED ON 09/14/23. THIS NURSE ASKED FIOR WHAT DAY PT SAW DR SUN. FIOR IS UNSURE BUT STATES I KNOW SHE HAS NOT TAKEN THESE TWO MEDICATIONS THAT WERE FILLED AT [facility] SINCE AFTER DR SUN TOLD US NOT TO. FIOR STILL WAS UNABLE TO TELL THIS NURSE WHEN PT SAW DR SUN AND STOPPED TAKING MEDICATION. THIS NURSE CONTINUED TO TRY AND FIND THE EXACT DATE ELIQUIS WAS TAKEN. FIOR ALSO STATES I HAVE BEEN LIVING WITH HER FOR TWO WEEKS AND SHE HAS NOT TAKEN THIS MEDICATION IN TWO WEEKS. FIOR STATES I KNOW SHE WAS UNABLE TO GET TO THESE MEDICATIONS BECAUSE THEY WERE IN A BOX WITH A LID. THIS NURSE STILL CONTINUED TO TRY AND FIGURE OUT WHAT EXACT DAY PT STOPPED TAKING ELIQUIS. DR PRITCHARD JOINED THE CONVERSATION AND TOOK FIOR TO A PRIVATE CONVERSATION. AFTER CONVERSATION WITH DR PRITCHARD AND FIOR, DECISION WAS MADE TO ADMINISTER THROMBOLYTIC. FIOR THEN STATED THAT PT HAD A GUARDIAN, FRANCISCO J, OF YESTERDAY. FRANCISCO J WAS CALLED AND THERE WAS VERBAL CONSENT WITNESSED BY AIDA WIGGINS, DR PRITCHARD, AND THIS NURSE GIVING CONSENT TO ADMINISTER THROMBOLYTIC. CONSENT WAS SIGNED BY THIS NURSE AND AIDA WIGGINS. THROMBOLYTIC WAS PULLED AND TWO NURSE CHECKED PRIOR TO ADMINISTRATION. VERBAL ORDERS FROM DR PRITCHARD TO GIVE 10MG OF LABETALOL PRIOR TO GIVING THROMBOLYTIC. MEDICAITONS WERE ADMINISTERED WITH DR. PRITCHARD AT BEDSIDE AND WITH AIR [facility]AC FLIGHT CREW AT BEDSIDE.
[2023-09-25 19:55] LABS: Amphetamines Screen Urine Negative (Negative); Barbiturates Screen Urine Negative (Negative); Benzodiazepines Screen Urine Negative (Negative); Cocaine Screen Urine Negative (Negative); Opiate Screen Urine Negative (Negative); PCP Screen Urine Negative (Negative); THC Screen Urine Negative (Negative)
[2023-09-25] MEDS: labetalol 5 mg/mL SDV 20mL 10 MG IVP (20:01)
[2023-09-25] MEDS: tenecteplase 50mg Kit (STROKE) 17 MG IVP (20:02)
[2023-09-25 20:06] LABS: INR 1.11 (0.8-1.2)
[2023-09-25 20:07] LABS: Partial Thromboplastin Time 35.7 SECONDS (23.9-36.7)
--- NOTE | 2023-09-25 20:08 | PC.NURSE ---
AIDA VILLARREAL AT [facility] NOTIFIED OF PT RECEIVING THROMBOLYTIC PRIOR TO TRANSFER.
[2023-09-25 20:14] LABS: Alanine Aminotransferase 36 U/L (0-33); Albumin Level 3.7 g/dL (3.5-5.2); Alkaline Phosphatase 104 U/L (35-105); Anion Gap 12.1 (5-19); Aspartate Amino Transferase 31 U/L (0-32); Blood Urea Nitrogen 19 mg/dL (8-23); Calcium 8.6 mg/dL (8.5-10.5); Carbon Dioxide 26 mmol/L (22-29); Chloride 98 mmol/L (98-107); Creatinine Clr Calc Pharmacy 45.1607; Globulin 2.9 g/dL (1.3-4.6); Glucose 146 mg/dL (65-115); Osmolality Calculated 279 mOsm/kg (285-295); Potassium 4.1 mmol/L (3.5-5.1); Sodium 132 mmol/L (136-145); Total Bilirubin 1.2 mg/dL (0.15-1.2); Total Protein 6.6 g/dL (6.6-8.7)
[2023-09-25 20:22] VITALS: BP 151/79; PULSE 74; O2SAT 95
== END 2023-09-25 20:10 ==
PROVIDERS: Emergency Provider General Practice; PCP Family Medicine
DX: I63.512 Cerebral infarction due to unspecified occlusion or stenosis of left middle cerebral artery (principal); Z87.891 Personal history of nicotine dependence; I10 Essential (primary) hypertension
CPT/HCPCS: 51702; 70450; 70496; 70498; 71045; 80053; 80306; 81003; 85025; 85610; 85730; 93005; 96374; 96375; 99291; 99292; J3101; J3490; Q9967